=== PATIENT | male | born 1965 | race Caucasian/White ===

== ENCOUNTER 2016-11-05 13:28 | Emergency (ER) | payer OTHER ==
[~2016-11-05] VITALS: Ht 182.9 cm; Wt 95.5 kg
[~2016-11-05 13:28] MED LIST: HYDR-3533 PO
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
[2016-11-05 13:49] VITALS: BP 137/101; RESP 18; TEMP 98.4
[2016-11-05 13:52] VITALS: BP 137/101; PULSE 94; RESP 18; TEMP 98.4; O2SAT 99
--- NOTE | 2016-11-05 16:03 | RADRPT ---
EXAM DATE/TIME: 11/05/2016 15:31 [facility] COMPARISON: No previous studies available for comparison. INDICATIONS : Evaluate for altered mental status. RADIATION DOSE: 56.38 CTDIvol (mGy) MEDICAL HISTORY : None SURGICAL HISTORY : None. ENCOUNTER: Initial ACUITY: 1 day PAIN SCALE: 3/10 LOCATION: Bilateral cranial TECHNIQUE: Multiple contiguous axial images were obtained of the head. Using automated exposure control and adj ustment of the mA and/or kV according to patient size, radiation dose was kept as low as reasonably a chievable to obtain optimal diagnostic quality images. FINDINGS: CEREBRUM: The ventricles are normal for age. No evidence of midline shift, mass lesion, hemorrhage or acute in farction. No extra-axial fluid collections are seen. POSTERIOR FOSSA: The cerebellum and brainstem are intact. The 4th ventricle is midline. The cerebellopontine angle i s unremarkable. EXTRACRANIAL: The visualized portion of the orbits is intact. SKULL: The calvaria is intact. No evidence of skull fracture. CONCLUSION: No acute disease. Jose Linares MD FACR on November 05, 2016 at 15:54 Board Certified Radiologist. This report was verified electronically.
== END 2016-11-05 16:38 | disposition short-term general hospital (02) ==
LOC: NEPC 13:28
DX: S01.81XA Laceration without foreign body of other part of head, initial encounter (principal); F17.200 Nicotine dependence, unspecified, uncomplicated; Y08.09XA Assault by strike by other specified type of sport equipment, initial encounter
CPT/HCPCS: 70450

== ENCOUNTER 2017-01-08 20:41 | Emergency (ER) | payer SELFPAY ==
[~2017-01-08] VITALS: Ht 188 cm; Wt 85.0 kg
[2017-01-08] MEDS ORDERED: SODIUM CHLOR 0.9% 1000 ML INJ 1,000 ML IV ONE (20:49)
[2017-01-08 20:50] VITALS: BP 138/71; PULSE 111; RESP 26; TEMP 98.3; O2SAT 94
[2017-01-08 20:53] VITALS: RESP 24
[2017-01-08] MEDS ORDERED: SODIUM CHLORIDE 0.9% FLUSH 10 ML FLUSH IVF PRN (21:00)
--- NOTE | 2017-01-08 21:18 | PD ---
HPI Chief Complaint: OD/ Ingestion Time Seen by Provider: 20:49 Travel History International Travel<30 days: No Contact w/Intl Traveler<30days: No Traveled to known affect area: No History of Present Illness HPI 51-year-old male arrives to the ER by EMS. He was found to GCS of 3. Narcan was given a GCS increased to 15. Blood sugar on scene was 210. The patient reports IV drug abuse tonight, opioids. He states he today relapsed after a long period of remission. At the time of the initial ER evaluation agent had no specific medical complaint. Location generalized/neuropsychiatric. He denies suicidal/homicidal ideation. PFSH Past Medical History ADHD: Yes Bipolar Disorder: Yes Diminished Hearing: No Implanted Vascular Access Dvce: No Immunizations Current: No Sleep Apnea: Yes Tetanus Vaccination: < 5 Years Influenza Vaccination: No Past Surgical History Neurologic Surgery: No Other Surgery: Yes (PILONIDAL CYST ) Social History Alcohol Use: No Tobacco Use: Yes (pack a day ) Substance Use: Yes (daily ) Allergies-Medications (Allergen,Severity, Reaction): Coded Allergies: No Known Allergies (Verified , 01/08/17) Reported Meds & Prescriptions Reported Meds & Active Scripts Active Active Prescriptions or Reported Medications Unobtainable Review of Systems ROS Limitations: Clinical Condition, Intoxication Physical Exam Narrative GENERAL: 51-year-old male well-nourished well-developed GCS 15 SKIN: Warm and dry. HEAD: Atraumatic. Normocephalic. EYES: Pupils equal and round. No scleral icterus. No injection or drainage. ENT: No nasal bleeding or discharge. Mucous membranes pink and moist. NECK: Trachea midline. No JVD. CARDIOVASCULAR: Tachycardia. Regular rhythm. RESPIRATORY: No accessory muscle use. Clear to auscultation. Breath sounds equal bilaterally. GASTROINTESTINAL: Abdomen soft, non-tender, nondistended. Hepatic and splenic margins not palpable. MUSCULOSKELETAL: Extremities without clubbing, cyanosis, or edema. No obvious deformities. NEUROLOGICAL: Awake and alert. No obvious cranial nerve deficits. Motor grossly within normal limits. Five out of 5 muscle strength in the arms and legs. Normal speech. PSYCHIATRIC: Current IV drug abuse. Data Data Last Documented VS Vital Signs Date Time Temp Pulse Resp B/P Pulse Ox O2 Delivery O2 Flow Rate FiO2 01/08/17 21:49 96 16 101/56 98 Nasal Cannula 3 01/08/17 20:50 98.3 Vital signs reviewed Orders Complete Blood Count With Diff (01/08/17 20:49) Comprehensive Metabolic Panel (01/08/17 20:49) Iv Access Insert/Monitor (01/08/17 20:49) Ecg Monitoring (01/08/17 20:49) Oximetry (01/08/17 20:49) Sodium Chloride 0.9% Flush (Ns Flush) (01/08/17 21:00) Sodium Chlor 0.9% 1000 Ml Inj (Ns 1000 M (01/08/17 20:49) Drug Screen, Random Urine (01/08/17 20:49) Alcohol (Ethanol) (01/08/17 20:49) Tylenol (Acetaminophen) (01/08/17 20:49) Naloxone Inj (Narcan Inj) (01/08/17 22:15) Labs Laboratory Tests Test 01/08/17 21:05 White Blood Count 11.9 TH/MM3 Red Blood Count 4.17 MIL/MM3 Hemoglobin 11.7 GM/DL Hematocrit 34.9 % Mean Corpuscular Volume 83.8 FL Mean Corpuscular Hemoglobin 28.1 PG Mean Corpuscular Hemoglobin 33.5 % Concent Red Cell Distribution Width 14.7 % Platelet Count 219 TH/MM3 Mean Platelet Volume 8.6 FL Neutrophils (%) (Auto) 78.0 % Lymphocytes (%) (Auto) 14.1 % Monocytes (%) (Auto) 6.1 % Eosinophils (%) (Auto) 1.2 % Basophils (%) (Auto) 0.6 % Neutrophils # (Auto) 9.3 TH/MM3 Lymphocytes # (Auto) 1.7 TH/MM3 Monocytes # (Auto) 0.7 TH/MM3 Eosinophils # (Auto) 0.1 TH/MM3 Basophils # (Auto) 0.1 TH/MM3 CBC Comment DIFF FINAL Differential Comment Sodium Level 134 MEQ/L Potassium Level 3.4 MEQ/L Chloride Level 100 MEQ/L Carbon Dioxide Level 26.4 MEQ/L Anion Gap 8 MEQ/L Blood Urea Nitrogen 10 MG/DL Creatinine 0.90 MG/DL Estimat Glomerular Filtration 89 ML/MIN Rate Random Glucose 163 MG/DL Calcium Level 8.4 MG/DL Total Bilirubin 0.4 MG/DL Aspartate Amino Transf 23 U/L (AST/SGOT) Alanine Aminotransferase 19 U/L (ALT/SGPT) Alkaline Phosphatase 64 U/L Total Protein 6.9 GM/DL Albumin 3.2 GM/DL Urine Opiates Screen POS Acetaminophen Level LESS THAN 2.0 MCG/ML Urine Barbiturates Screen NEG Urine Amphetamines Screen POS Urine Benzodiazepines Screen NEG Urine Cocaine Screen POS Urine Cannabinoids Screen POS Ethyl Alcohol Level LESS THAN 3 MG/DL MDM Medical Decision Making Medical Screen Exam Complete: Yes Emergency Medical Condition: Yes Differential Diagnosis Accidental overdose, opiate overdose, benzodiazepine overdose, cocaine abuse, possible sepsis abuse, electrolyte imbalance, renal failure with sepsis Narrative Course CBC & BMP Diagram 01/08/17 21:05 Drug screen: Positive for opiates and amphetamines cocaine and cannabinoids LFTs normal Patient was ambulated at 10:20 PM and was somewhat unsteady on his feet and seemed as though he might actually falling asleep while walking. We will continue to monitor the patient and attempted a second time ambulated him in 60 minutes. 2.0 mg IV Narcan ordered at 10:20 PM. At 12:25 AM the patient ambulated around the pod with a steady gait. He is now ready for discharge. Diagnosis Primary Impression: Polysubstance overdose Qualified Code: T50.901A - Polysubstance overdose, accidental or unintentional , initial encounter Referrals: [facility] days Additional Instructions: You have a choice when it comes to health care, and we are glad that you chose [facility]. Hopefully, we have met your expectations on today's visit. You are welcome to return to [facility] at any time, as we are committed to meeting the health care needs of our community. Med/Other Pt SpecificInfo: No Change to Meds Scripts Unable to Obtain Active Prescriptions or Reported Meds Disposition: 01 DISCHARGE HOME Condition: Obinna Joel MD Jan 08, 2017 21:18
[2017-01-08 21:24] LABS: AUTOMATED NEUTROPHIL # 9.3 TH/MM3 (1.8-7.7); BASOPHIL # 0.1 TH/MM3 (0-0.2); BASOPHIL % 0.6 % (0.0-2.0); EOSINOPHIL # 0.1 TH/MM3 (0-0.4); EOSINOPHIL % 1.2 % (0.0-4.0); HEMATOCRIT 34.9 % (39.0-51.0); HEMO FLAGS DIFF FINAL; LYMPH % 14.1 % (9.0-44.0); LYMPHOCYTE # 1.7 TH/MM3 (1.0-4.8); MEAN CELL VOLUME 83.8 FL (80.0-100.0); MEAN CORPUSCULAR HEMOGLOBIN 28.1 PG (27.0-34.0); MEAN CORPUSCULAR HGB CONC 33.5 % (32.0-36.0); MONO % 6.1 % (0.0-8.0); PLATELET COUNT 219 TH/MM3 (150-450); RED BLOOD COUNT 4.17 MIL/MM3 (4.50-5.90); RED CELL DISTRIBUTION WIDTH 14.7 % (11.6-17.2); WHITE BLOOD COUNT 11.9 TH/MM3 (4.0-11.0)
[2017-01-08 21:46] LABS: AMPHETAMINE, URINE POS (NEG); BARBITURATES, URINE NEG (NEG); COCAINE, URINE POS (NEG)
[2017-01-08 21:49] VITALS: BP 101/56; PULSE 96; RESP 16; O2SAT 98
[2017-01-08 21:53] LABS: ANION GAP 8 MEQ/L (5-15); BICARBONATE 26.4 MEQ/L (21.0-32.0); BLOOD UREA NITROGEN 10 MG/DL (7-18); CHLORIDE 100 MEQ/L (98-107); GLOMERULAR FILTRATION RATE 89 ML/MIN (>89); POTASSIUM 3.4 MEQ/L (3.5-5.1); SODIUM (NA) 134 MEQ/L (136-145)
[2017-01-08 21:54] LABS: AST (GOT) 23 U/L (15-37)
[2017-01-08 21:57] LABS: ALKALINE PHOSPHATASE 64 U/L (45-117); ALT (GPT) 19 U/L (12-78); TOTAL BILIRUBIN ADULT 0.4 MG/DL (0.2-1.0)
[2017-01-08 22:00] LABS: ACETAMINOPHEN LESS THAN 2.0 MCG/ML (10.0-30.0)
[2017-01-08] MEDS ORDERED: NALOXONE HCL 2 MG/2 ML VIAL IV PUSH ONE (22:15)
== END 2017-01-09 04:09 | disposition home or self-care (01) ==
LOC: NEPC 20:41
DX: T40.1X1A Poisoning by heroin, accidental (unintentional), initial encounter (principal); R00.0 Tachycardia, unspecified; F90.9 Attention-deficit hyperactivity disorder, unspecified type; F31.9 Bipolar disorder, unspecified; F17.200 Nicotine dependence, unspecified, uncomplicated
CPT/HCPCS: 80053; 80307; 85025; 96374; 99284; J2310; J7030

== ENCOUNTER 2017-01-31 17:45 | Inpatient (IN) | payer SELFPAY ==
[~2017-01-31] VITALS: Ht 190.5 cm; Wt 85.0 kg
[2017-01-31] MEDS ORDERED: IOHEXOL 350 MG/ML 10 ML VIAL (for RAD DIAG) IVCONTRAST ONE (17:46)
[2017-01-31 17:50] VITALS: BP 130/85; PULSE 95; RESP 16; TEMP 98.4; O2SAT 98
[2017-01-31] MEDS ORDERED: SODIUM CHLOR 0.9% 1000 ML INJ 1,000 ML IV SCH (19:22)
--- NOTE | 2017-01-31 19:26 | PD ---
HPI Chief Complaint: ENT Complaint Time Seen by Provider: 19:15 Travel History International Travel<30 days: No Contact w/Intl Traveler<30days: No Traveled to known affect area: No History of Present Illness HPI This Is a 52-year-old male who presents via EMS for evaluation of sore throat. The patient is a poor historian, he reports that he has not slept in the past few days secondary to methamphetamine abuse. His chief complaint today is sore throat which started yesterday morning. It hurts to swallow. He has had difficulty swallowing secondary to pain. Denies fevers, chills, cough or congestion, chest pain or shortness of breath, abdominal pain, nausea or vomiting. He has no other complaints. PFSH Past Medical History ADHD: Yes Asthma: No Blood Disorders: No Bipolar Disorder: Yes Cancer: No Cardiovascular Problems: No COPD: No Diminished Hearing: No Endocrine: No Genitourinary: No Immune Disorder: No Implanted Vascular Access Dvce: No Musculoskeletal: No Neurologic: No Psychiatric: No Reproductive: No Respiratory: No Immunizations Current: No Sleep Apnea: Yes Past Surgical History Abdominal Surgery: No Cardiac Surgery: No Ear Surgery: No Endocrine Surgery: No Eye Surgery: No Genitourinary Surgery: No Gynecologic Surgery: No Neurologic Surgery: No Oral Surgery: No Thoracic Surgery: No Other Surgery: Yes (PILONIDAL CYST ) Social History Alcohol Use: No Tobacco Use: Yes (pack a day ) Substance Use: Yes (daily ) Allergies-Medications (Allergen,Severity, Reaction): Coded Allergies: No Known Allergies (Verified , 02/01/17) Reported Meds & Prescriptions Reported Meds & Active Scripts Active Active Prescriptions or Reported Medications Unobtainable Review of Systems Except as stated in HPI: all other systems reviewed are Neg Physical Exam Narrative GENERAL: This is a disheveled appearing male who was sleeping on initial examination but is easily arousable by voice. His voice is not hoarse or muffled. No stridor or drooling. SKIN: Warm and dry. HEAD: Atraumatic. Normocephalic. EYES: Pupils equal and round. No scleral icterus. No injection or drainage. ENT: No nasal bleeding or discharge. Mucous membranes pink and moist. There is left-sided oral pharyngeal edema, erythema with uvular deviation. No exudate. NECK: Trachea midline. No JVD. There is no lymphadenopathy. CARDIOVASCULAR: Regular rate and rhythm. No murmur appreciated. RESPIRATORY: No accessory muscle use. Clear to auscultation. Breath sounds equal bilaterally. GASTROINTESTINAL: Abdomen soft, non-tender, nondistended. Hepatic and splenic margins not palpable. MUSCULOSKELETAL: No obvious deformities. NEUROLOGICAL: Awake and alert. No obvious cranial nerve deficits. Motor grossly within normal limits. Normal speech. Data Data Last Documented VS Vital Signs Date Time Temp Pulse Resp B/P (MAP) Pulse Ox O2 Delivery O2 Flow Rate FiO2 01/31/17 17:50 98.4 95 16 130/85 (100) 98 Orders Orders Complete Blood Count With Diff (01/31/17 19:22) Basic Metabolic Panel (Bmp) (01/31/17 19:22) Act Partial Throm Time (Ptt) (01/31/17 19:22) Prothrombin Time / Inr (Pt) (01/31/17 19:22) Group A Rapid Strep Screen (01/31/17 19:22) Lactic Acid Sepsis Protocol (01/31/17 19:22) Blood Culture (01/31/17 19:22) Iv Access Insert/Monitor (01/31/17 19:22) Ampicillin-Sulbactam Inj (Unasyn Inj) (01/31/17 19:30) Dexamethasone Inj (Decadron Inj) (01/31/17 19:30) Sodium Chlor 0.9% 1000 Ml Inj (Ns 1000 M (01/31/17 19:22) Ct Soft Tiss Neck W Iv Cont (01/31/17 ) Strep Culture (Group A) (01/31/17 19:40) Iohexol 350 Inj (Omnipaque 350 Inj) (01/31/17 17:46) Admit Order (Ed Use Only) (01/31/17 22:46) Labs Laboratory Tests Test 01/31/17 19:40 White Blood Count 14.1 TH/MM3 Red Blood Count 4.67 MIL/MM3 Hemoglobin 12.6 GM/DL Hematocrit 38.7 % Mean Corpuscular Volume 83.0 FL Mean Corpuscular Hemoglobin 27.0 PG Mean Corpuscular Hemoglobin Concent 32.6 % Red Cell Distribution Width 14.9 % Platelet Count 314 TH/MM3 Mean Platelet Volume 8.4 FL Neutrophils (%) (Auto) 77.8 % Lymphocytes (%) (Auto) 13.0 % Monocytes (%) (Auto) 7.5 % Eosinophils (%) (Auto) 1.2 % Basophils (%) (Auto) 0.5 % Neutrophils # (Auto) 11.0 TH/MM3 Lymphocytes # (Auto) 1.8 TH/MM3 Monocytes # (Auto) 1.1 TH/MM3 Eosinophils # (Auto) 0.2 TH/MM3 Basophils # (Auto) 0.1 TH/MM3 CBC Comment DIFF FINAL Differential Comment Prothrombin Time 11.2 SEC Prothromb Time International Ratio 1.0 RATIO Activated Partial Thromboplast Time 29.9 SEC Blood Urea Nitrogen 8 MG/DL Creatinine 0.76 MG/DL Random Glucose 95 MG/DL Calcium Level 8.9 MG/DL Sodium Level 135 MEQ/L Potassium Level 4.1 MEQ/L Chloride Level 100 MEQ/L Carbon Dioxide Level 27.1 MEQ/L Anion Gap 8 MEQ/L Estimat Glomerular Filtration Rate 108 ML/MIN Lactic Acid Level 0.9 mmol/L MDM Medical Decision Making Medical Screen Exam Complete: Yes Emergency Medical Condition: Yes Medical Record Reviewed: Yes Differential Diagnosis Peritonsillar abscess, cellulitis, pharyngitis, malignancy Narrative Course 52-year-old male presents with a history of one day of sore throat. On examination he has left-sided oral pharyngeal erythema and edema with some uvular deviation. He is afebrile. He is unfortunately very poor historian. Plan is for basic lab work, blood cultures, CT soft tissue neck. He was given IV fluids, Unasyn and Decadron. CT soft tissue neck has been reviewed. CONCLUSION: 1. Large mass centered on the left tonsillar fossa region. This extends into the left nasopharynx and into the left hypopharynx region. It nearly completely obliterates the oropharynx. It extends towards the right tonsillar fossa. Involvement in the right tonsillar fossa may also be present. This mass is associated with bilateral adenopathy. This either represents extensive inflammatory change/infection versus neoplasm. 2. 2.1 cm mass at the superficial lobe of the right parotic gland inferiorly representing either adenopathy or potentially a primary parotid mass such pleomorphic adenoma. Upon reexamination the patient does feel mildly improved. At this point time the plan would be to admit the patient for IV antibiotics, ENT consultation. Discussed with Dr. Beaulieu who is agreeable. Diagnosis Primary Impression: Oropharyngeal mass Admitting Information Admitting Physician Requests: Admit Scripts Unable to Obtain Active Prescriptions or Reported Meds Zac Medina Jan 31, 2017 19:26
[2017-01-31] MEDS ORDERED: DEXAMETHASONE SOD PHOS 20 MG/5 ML VIAL IV PUSH ONE (19:30)
[2017-01-31] MEDS ORDERED: AMPICILLIN-SULBACTAM INJ 3 GM in SODIUM CHLORIDE 0.9% INJ 100 ML IV ONE (19:30)
[2017-01-31 19:59] LABS: BASOPHIL # 0.1 TH/MM3 (0-0.2); BASOPHIL % 0.5 % (0.0-2.0); EOSINOPHIL # 0.2 TH/MM3 (0-0.4); EOSINOPHIL % 1.2 % (0.0-4.0); HEMATOCRIT 38.7 % (39.0-51.0); HEMO FLAGS DIFF FINAL; LYMPHOCYTE # 1.8 TH/MM3 (1.0-4.8); MEAN CORPUSCULAR HGB CONC 32.6 % (32.0-36.0); MONO % 7.5 % (0.0-8.0); NEUT % 77.8 % (16.0-70.0); PLATELET COUNT 314 TH/MM3 (150-450); RED BLOOD COUNT 4.67 MIL/MM3 (4.50-5.90); RED CELL DISTRIBUTION WIDTH 14.9 % (11.6-17.2); WHITE BLOOD COUNT 14.1 TH/MM3 (4.0-11.0)
[2017-01-31 20:17] LABS: APTT (PATIENT) 29.9 SEC (24.3-30.1); PROTHROMBIN TIME - PATIENT 11.2 SEC (9.8-11.6)
[2017-01-31 20:19] LABS: BICARBONATE 27.1 MEQ/L (21.0-32.0); POTASSIUM 4.1 MEQ/L (3.5-5.1)
--- NOTE | 2017-01-31 22:27 | RADRPT ---
EXAM DATE/TIME: 01/31/2017 20:41 [facility] COMPARISON: No previous studies available for comparison. INDICATIONS : Throat pain and swelling today. IV CONTRAST: 72 cc Omnipaque 350 (iohexol) IV RADIATION DOSE: 14.40 CTDIvol (mGy) MEDICAL HISTORY : None SURGICAL HISTORY : None. ENCOUNTER: Initial ACUITY: 1 day PAIN SCALE: 9/10 LOCATION: Neck TECHNIQUE: Volumetric scanning of the neck was performed. Using automated exposure control and a djustment of the mA and/or kV according to patient size, radiation dose was kept as low as reasonably achievable to obtain optimal diagnostic quality images. DICOM format image data is available elect ronically for review and comparison. FINDINGS: There is a large mass seen at the left tonsillar fossa region. This extends from the na sopharynx region down to the colonic level on the left. This measures at least 4 cm in diameter and e xtends over a 10 cm at the length at the neck. It does compromise the oropharynx. This mass either a buts the right tonsillar fossa or potentially there is a component involving the right tonsillar angel a. The mass extends into the left vallecula and the soft tissues anterior to the left vallecula and the floor of the mouth region. There is extensive adenopathy seen bilaterally being much more promin ent on the left. The adenopathy seen in the anterior triangle and digastric regions. The largest ly mph node on the left measures 1.8 cm in greatest dimension. There is a 2.1 cm mass seen at the inferi or aspect of the superficial lobe of the right parotid gland. This could represent a prominent lymph node although other type masses including a primary parotid mass such as pleomorphic adenoma could pereyra ve a similar appearance. There is mild mucosal disease seen at the maxillary sinuses bilaterally being worse on the left. The re is some minimal mucosal disease at an anterior left ethmoid air cell. The orbits appear grossly i ntact. Thyroid gland is unremarkable. The lung apices are clear. The bony structures are grossly i ntact. CONCLUSION: 1. Large mass centered on the left tonsillar fossa region. This extends into the left nasopharynx and into the left hypopharynx region. It nearly completely obliterates the oropharynx. It extends towa rds the right tonsillar fossa. Involvement in the right tonsillar fossa may also be present. This ma ss is associated with bilateral adenopathy. This either represents extensive inflammatory change/inf ection versus neoplasm. 2. 2.1 cm mass at the superficial lobe of the right parotic gland inferiorly representing either mitchell opathy or potentially a primary parotid mass such pleomorphic adenoma. Pito Acosta MD on January 31, 2017 at 22:00 Board Certified Radiologist. This report was verified electronically.
[2017-01-31] MEDS ORDERED: SODIUM CHLORIDE 0.9% FLUSH 10 ML FLUSH IV FLUSH PRN (22:45)
[2017-01-31] MEDS ORDERED: NALOXONE HCL 0.4 MG/ML AMP IV PRN (22:45)
[2017-02-01] VITALS (9 sets, daily range): BP systolic 105–136; BP diastolic 59–83; PULSE 77–88; RESP 18–22; TEMP 97.1–99.1; O2SAT 96–99
[2017-02-01] MEDS: DEXAMETHASONE SOD PHOS 4 MG/ML VIAL IV PUSH SCH ×4 (01:04→17:57)
[2017-02-01] MEDS: AMPICILLIN-SULBACTAM INJ 3 GM in SODIUM CHLORIDE 0.9% INJ 100 ML IV SCH ×4 (01:04→21:25)
--- NOTE | 2017-02-01 03:37 | HHI.HP ---
[facility] No Primary Care Physician Admission Diagnosis left oropharyngeal mass Diagnoses: Chief Complaint: difficulty swallowing and breathing Travel History International Travel<30 Days: No Contact w/Intl Traveler <30 Da: No Traveled to Known Affected Are: No History of Present Illness Written by DESHAWN Stuart acting as scribe for [Britntee] on 02/01/17 at 03: 30. 52 y/o male with a history of IVDA, last use 1 day ago presented to the ED with complaints of throat swelling, and difficultly breathing for a few days. He states for the last few days he has been unable to swallow and it is hard to breath. He denies no fevers, chills, chest pain, nausea or vomiting. He states this happened 2 years ago and he was treated with antibiotics. He does also states he has been dizzy for a few days but unsure if it because of his drug use. He does have multiple skin ulcers on arms and legs from injecting drugs, he denies any MRSA history. Review of Systems Except as stated in HPI: all other systems reviewed are Neg Past Family Social History Past Medical History Patient denies any medical history Past Surgical History Cyst on tailbone Reported Medications Reported Meds & Active Scripts Active Active Prescriptions or Reported Medications Unobtainable Allergies: Coded Allergies: No Known Allergies (Verified , 02/01/17) Active Ordered Medications Current Medications Medications (Trade) Dose Ordered Sig/Mary Route Start Time Stop Time Status Last Admin (NS Flush) 2 ml UNSCH PRN IV FLUSH 01/31/17 22:45 (NS Flush) 2 ml BID IV FLUSH 02/01/17 09:00 (Narcan Inj) 0.4 mg UNSCH PRN IV 01/31/17 22:45 (Decadron Inj) 4 mg Q6HR IV PUSH 02/01/17 00:00 02/01/17 01:04 (Protonix) 40 mg DAILY PO 02/01/17 09:00 Ampicillin Sodium/ Sulbactam Sodium 3 gm/Sodium Chloride 100 ml @ 200 mls/hr Q6H IV 02/01/17 02:00 02/01/17 01:04 Family History Family history of cancer Social History Tobacco use: 1 PPD Alcohol use: Denies Illicit drug use: IV heroin and meth Physical Exam Vital Signs Vital Signs Date Time Temp Pulse Resp B/P (MAP) Pulse Ox O2 Delivery O2 Flow Rate FiO2 02/01/17 02:55 99.1 79 18 136/83 (100) 98 Room Air 01/31/17 17:50 98.4 95 16 130/85 (100) 98 Physical Exam GENERAL: This is a well-nourished, well-developed patient, in no apparent distress. SKIN: No rashes, ecchymoses or lesions. Cool and dry. HEAD: Atraumatic. Normocephalic. EYES: Pupils equal round and reactive. Extraocular motions intact. No scleral icterus. No injection or drainage. ENT: Nose without bleeding, purulent drainage or septal hematoma. Roof of mouth is swollen. Airway patent. Missing and chipped teeth. NECK: Trachea midline. Right lymphadenopathy. CARDIOVASCULAR: Regular rate and rhythm without murmurs, gallops, or rubs. RESPIRATORY: Clear to auscultation. Breath sounds equal bilaterally. No wheezes , rales, or rhonchi. GASTROINTESTINAL: Abdomen soft, non-tender, nondistended. MUSCULOSKELETAL: Extremities without clubbing, cyanosis, or edema. No joint tenderness, effusion, or edema noted. No calf tenderness. NEUROLOGICAL: Awake and alert. Motor and sensory grossly within normal limits. Normal speech. Laboratory Laboratory Tests Test 01/31/17 19:40 White Blood Count 14.1 Red Blood Count 4.67 Hemoglobin 12.6 Hematocrit 38.7 Mean Corpuscular Volume 83.0 Mean Corpuscular Hemoglobin 27.0 Mean Corpuscular Hemoglobin Concent 32.6 Red Cell Distribution Width 14.9 Platelet Count 314 Mean Platelet Volume 8.4 Neutrophils (%) (Auto) 77.8 Lymphocytes (%) (Auto) 13.0 Monocytes (%) (Auto) 7.5 Eosinophils (%) (Auto) 1.2 Basophils (%) (Auto) 0.5 Neutrophils # (Auto) 11.0 Lymphocytes # (Auto) 1.8 Monocytes # (Auto) 1.1 Eosinophils # (Auto) 0.2 Basophils # (Auto) 0.1 CBC Comment DIFF FINAL Differential Comment Prothrombin Time 11.2 Prothromb Time International Ratio 1.0 Activated Partial Thromboplast Time 29.9 Blood Urea Nitrogen 8 Creatinine 0.76 Random Glucose 95 Calcium Level 8.9 Sodium Level 135 Potassium Level 4.1 Chloride Level 100 Carbon Dioxide Level 27.1 Anion Gap 8 Estimat Glomerular Filtration Rate 108 Lactic Acid Level 0.9 Date/Time Source Procedure Growth Status 01/31/17 19:40 Blood Peripheral Aerobic Blood Culture Pending Received 01/31/17 19:40 Blood Peripheral Anaerobic Blood Culture Pending Received 01/31/17 19:40 Throat Group A Streptococcus Screen Pending Received Result Diagram: 01/31/17193901/31/171939 Imaging Last Impressions Neck CT 01/31/17 0000 Signed Impressions: Service Date/Time: Tuesday, January 31, 2017 20:41 - CONCLUSION: 1. Large mass centered on the left tonsillar fossa region. This extends into the left nasopharynx and into the left hypopharynx region. It nearly completely obliterates the oropharynx. It extends towards the right tonsillar fossa. Involvement in the right tonsillar fossa may also be present. This mass is associated with bilateral adenopathy. This either represents extensive inflammatory change/infection versus neoplasm. 2. 2.1 cm mass at the superficial lobe of the right parotic gland inferiorly representing either adenopathy or potentially a primary parotid mass such pleomorphic adenoma. MD Bobby William VTE Risk Assessment Caprini VTE Risk Assessment: No/Low Risk (score <= 1) Caprini Risk Assessment Model Point Value = 1 Point Value = 2 Point Value = 3 Point Value = 5 Age 41-60 Minor surgery BMI > 25 kg/m2 Swollen legs Varicose veins or History of unexplained or recurrent spontaneous Oral contraceptives or hormone replacement Sepsis (< 1 month) Serious lung disease, including pneumonia (< 1 month) Abnormal pulmonary function Acute myocardial infarction Congestive heart failure (< 1 month) History of inflammatory bowel disease Medical patient at bed rest Age 61-74 Arthroscopic surgery Major open surgery (> 45 min) Laparoscopic surgery (> 45 min) Malignancy Confined to bed (> 72 hours) Immobilizing plaster cast Central venous access Age >= 75 History of VTE Family history of VTE Factor V Leiden Prothrombin [id number] Lupus anticoagulant Anticardiolipin antibodies Elevated serum homocysteine Heparin-induced thrombocytopenia Other congenital or acquired thrombophilia Stroke (< 1 month) Elective arthroplasty Hip, pelvis, or leg fracture Acute spinal cord injury (< 1 month) Prophylaxis Regimen Total Risk Factor Score Risk Level Prophylaxis Regimen 0-1 Low Early ambulation 2 Moderate Order ONE of the following: *Sequential Compression Device (SCD) *Heparin 5000 units SQ BID 3-4 Higher Order ONE of the following medications: *Heparin 5000 units SQ TID *Enoxaparin/Lovenox 40 mg SQ daily (WT < 150 kg, CrCl > 30 mL/min) *Enoxaparin/Lovenox 30 mg SQ daily (WT < 150 kg, CrCl > 10-29 mL/min) *Enoxaparin/Lovenox 30 mg SQ BID (WT < 150 kg, CrCl > 30 mL/min) AND/OR *Sequential Compression Device (SCD) 5 or more Highest Order ONE of the following medications: *Heparin 5000 units SQ TID (Preferred with Epidurals) *Enoxaparin/Lovenox 40 mg SQ daily (WT < 150 kg, CrCl > 30 mL/min) *Enoxaparin/Lovenox 30 mg SQ daily (WT < 150 kg, CrCl > 10-29 mL/min) *Enoxaparin/Lovenox 30 mg SQ BID (WT < 150 kg, CrCl > 30 mL/min) AND *Sequential Compression Device (SCD) Assessment and Plan Problem List: (1) Oropharyngeal mass ICD Code: R22.1 - Localized swelling, mass and lump, neck Status: Acute (2) Polysubstance overdose ICD Code: T50.901A - Poisoning by unspecified drugs, medicaments and biological substances, accidental (unintentional), initial encounter Status: Acute (3) Leukocytosis ICD Code: D72.829 - Elevated white blood cell count, unspecified Assessment and Plan 52 y/o male with a history of IVDA, last use 1 day ago presented to the ED with complaints of throat swelling, and difficultly breathing for a few days. Oropharyngeal mass Neck CT reviewed and shows Large mass centered on the left tonsillar fossa region. This extends into the left nasopharynx and into the left hypopharynx region. It nearly completely obliterates the oropharynx. It extends towards the right tonsillar fossa. Involvement in the right tonsillar fossa may also be present. This mass is associated with bilateral adenopathy. This either represents extensive inflammatory change/infection versus neoplasm. 2.1 cm mass at the superficial lobe of the right parotic gland inferiorly representing either adenopathy or potentially a primary parotid mass such pleomorphic adenoma. -Consult ENT for recommendations -IV Decadron -Pain management with IV Dilaudid -Unasyn IV Leukocytosis, likely from tonsillar mass, WBC 14.1 -Cont Antibiotics as above -CBC in AM Polysubstance abuse, chronic -Encouraged to quit DVT prophylaxis: SCDs This note was transcribed by emaibhenri [Janel Quiñones]. I, Dr. Berny Beaulieu personally performed the history, physical exam, and medical decision making; and confirmed the accuracy of the information in the transcribed note. Authenticated by Dr. Berny Beaulieu on 02/01/17 at 03:30. Discussed Condition With Patient and ED physician Physician Certification 2 Midnight Certification Type: Admission for Inpatient Services Order for Inpatient Services The services are ordered in accordance with Medicare regulations or non- Medicare payer requirements, as applicable. In the case of services not specified as inpatient-only, they are appropriately provided as inpatient services in accordance with the 2-midnight benchmark. Estimated LOS (days): 3 days is the estimated time the patient will need to remain in the hospital, assuming treatment plan goals are met and no additional complications. Post-Hospital Plan: Home Janel Quiñones Feb 01, 2017 03:37 Berny Beaulieu MD Feb 01, 2017 07:53
[2017-02-01] MEDS: SODIUM CHLORIDE 0.9% FLUSH 10 ML FLUSH IV FLUSH SCH ×2 (09:21→21:24)
[2017-02-01] MEDS: PANTOPRAZOLE SOD 40 MG DELAYED RELEASE TAB PO SCH (09:21)
[2017-02-01] MEDS: HYDROmorphone HCL PF 1 MG/ML VIAL IV PUSH PRN ×3 (09:35→17:58)
[2017-02-01] MEDS: REMOVE OLD PATCH T-DERMAL SCH (12:45)
--- NOTE | 2017-02-01 12:46 | HHI.PR ---
Subjective Remarks Follow up for oropharyngeal mass. The patient reports significant improvement of pain and swelling overnight, however symptoms still persist, pain 7/10. He has been able to eat and swallow solid foods. Denies any difficulty breathing or shortness of breath. He is now able to speak however still painful if he tries to talk loud. Denies fevers or chills. He explains he noticed bilateral cervical lymphadenopathy over a month ago, however the throat swelling he only noticed yesterday morning. He does continue to smoke cigarettes. He has no other medical complaints at this time. Objective Vitals Vital Signs Date Time Temp Pulse Resp B/P (MAP) Pulse Ox O2 Delivery O2 Flow Rate FiO2 02/01/17 11:52 97.1 84 18 109/64 (79) 97 02/01/17 10:05 20 02/01/17 07:40 97.9 82 22 133/64 (87) 99 02/01/17 05:12 98.6 82 18 121/72 (88) 99 02/01/17 05:11 83 02/01/17 04:20 02/01/17 02:55 99.1 79 18 136/83 (100) 98 Room Air 01/31/17 17:50 98.4 95 16 130/85 (100) 98 I/O 01/31/17 01/31/17 01/31/17 02/01/17 02/01/17 02/01/17 07:00 15:00 23:00 07:00 15:00 23:00 Intake Total 1100 ml 0 ml 100 ml Balance 1100 ml 0 ml 100 ml Intake Oral 0 ml IV Total 1100 ml 100 ml # Voids 1 Result Diagram: 01/31/17193901/31/171939 Imaging Last Impressions Neck CT 01/31/17 0000 Signed Impressions: Service Date/Time: Tuesday, January 31, 2017 20:41 - CONCLUSION: 1. Large mass centered on the left tonsillar fossa region. This extends into the left nasopharynx and into the left hypopharynx region. It nearly completely obliterates the oropharynx. It extends towards the right tonsillar fossa. Involvement in the right tonsillar fossa may also be present. This mass is associated with bilateral adenopathy. This either represents extensive inflammatory change/infection versus neoplasm. 2. 2.1 cm mass at the superficial lobe of the right parotic gland inferiorly representing either adenopathy or potentially a primary parotid mass such pleomorphic adenoma. Pito Acosta MD Objective Remarks GENERAL: Well-nourished, well-developed middle aged male patient in NAD. SKIN: Warm and dry. No rash. HEAD: Normocephalic. Atraumatic. EYES: Pupils equal and round. ENT: Mucous membranes pink and moist. Poor dentition. Oropharynx with significant diffuse edema almost completely enclosing the oropharynx, worse on the left, with mild erythema. NECK: Supple. Diffuse lymphadenopathy throughout right preauricular, right anterior cervical, left anterior cervical, left submandibular. CARDIOVASCULAR: Regular rate and rhythm. S1, S2 noted. No murmur appreciated. RESPIRATORY: No accessory muscle use. Clear to auscultation. Breath sounds equal bilaterally. GASTROINTESTINAL: Abdomen soft, non-tender, nondistended. Normoactive bowel sounds x4. MUSCULOSKELETAL: No obvious deformities. Extremities without clubbing, cyanosis , or edema. NEUROLOGICAL: Awake and alert. No obvious cranial nerve deficits. Motor grossly within normal limits. Normal speech. PSYCHIATRIC: Appropriate mood and affect; insight and judgment normal. Medications and IVs Current Medications Medications (Trade) Dose Ordered Sig/Mary Route Start Time Stop Time Status Last Admin (NS Flush) 2 ml UNSCH PRN IV FLUSH 01/31/17 22:45 (NS Flush) 2 ml BID IV FLUSH 02/01/17 09:00 02/01/17 09:21 (Narcan Inj) 0.4 mg UNSCH PRN IV 01/31/17 22:45 (Decadron Inj) 4 mg Q6HR IV PUSH 02/01/17 00:00 02/01/17 11:40 (Protonix) 40 mg DAILY PO 02/01/17 09:00 02/01/17 09:21 Ampicillin Sodium/ Sulbactam Sodium 3 gm/Sodium Chloride 100 ml @ 200 mls/hr Q6H IV 02/01/17 02:00 02/01/17 09:21 (Dilaudid Pf Inj) 1 mg Q4H PRN IV PUSH 02/01/17 03:45 02/01/17 09:35 A/P Problem List: (1) Oropharyngeal mass ICD Code: R22.1 - Localized swelling, mass and lump, neck Status: Acute (2) Polysubstance overdose ICD Code: T50.901A - Poisoning by unspecified drugs, medicaments and biological substances, accidental (unintentional), initial encounter Status: Acute (3) Leukocytosis ICD Code: D72.829 - Elevated white blood cell count, unspecified Assessment and Plan 52 y/o male with a history of IVDA, last use 1 day ago presented to the ED with complaints of throat swelling, and difficultly breathing for a few days. Oropharyngeal mass: Neck CT images reviewed, shows Large mass centered on the left tonsillar fossa region; extends into the left nasopharynx and into the left hypopharynx region; nearly completely obliterates the oropharynx and extends towards the right tonsillar fossa; mass associated with bilateral adenopathy; either represents extensive inflammatory change/infection versus neoplasm. 2.1 cm mass at the superficial lobe of the right parotic gland inferiorly representing either adenopathy or potentially a primary parotid mass such pleomorphic adenoma. Strep screen negative. -Consult ENT for further recommendations -Continue IV Decadron 4mg q6h -Pain management with IV Dilaudid for now, can likely transition to liquid norco if swelling continued to improve -Antibiotics with IV Unasyn Leukocytosis, likely from tonsillar mass, WBC 14.1 -Cont Antibiotics as above, suspect leukocytosis to worsen with steroids IVDU/Polysubstance abuse: uses IV heroin and meth -Encouraged to quit Tobacco Use: chronic -counseled on cessation -nicotine patch DVT prophylaxis: SCDs Discharge Planning Discharge pending further clinical improvement and ENT evaluation. Possibly discharge in 2-3 days. Flora Moyer PA-C Feb 01, 2017 12:46 pm
[2017-02-01 12:57] LABS: AUTOMATED NEUTROPHIL # 11.5 TH/MM3 (1.8-7.7); HEMATOCRIT 36.7 % (39.0-51.0); HEMO FLAGS DIFF FINAL; LYMPH % 7.9 % (9.0-44.0); MEAN CELL VOLUME 82.5 FL (80.0-100.0); MEAN CORPUSCULAR HGB CONC 33.9 % (32.0-36.0); MONO % 3.4 % (0.0-8.0); NEUT % 88.7 % (16.0-70.0); PLATELET COUNT 283 TH/MM3 (150-450); RED BLOOD COUNT 4.45 MIL/MM3 (4.50-5.90); RED CELL DISTRIBUTION WIDTH 14.4 % (11.6-17.2); WHITE BLOOD COUNT 12.9 TH/MM3 (4.0-11.0)
[2017-02-01 13:08] LABS: BICARBONATE 26.3 MEQ/L (21.0-32.0); POTASSIUM 3.7 MEQ/L (3.5-5.1)
[2017-02-01] MEDS: NICOTINE 21 MG/24 HR PATCH T-DERMAL SCH (13:49)
[2017-02-02] VITALS (9 sets, daily range): BP systolic 101–129; BP diastolic 58–70; PULSE 73–87; RESP 18–20; TEMP 97.4–98.6; O2SAT 96–100
[2017-02-02] MEDS: DEXAMETHASONE SOD PHOS 4 MG/ML VIAL IV PUSH SCH ×4 (01:57→18:09)
[2017-02-02] MEDS: HYDROmorphone HCL PF 1 MG/ML VIAL IV PUSH PRN ×6 (02:04→21:25)
[2017-02-02] MEDS: AMPICILLIN-SULBACTAM INJ 3 GM in SODIUM CHLORIDE 0.9% INJ 100 ML IV SCH ×4 (02:09→20:47)
[2017-02-02] MEDS: SODIUM CHLORIDE 0.9% FLUSH 10 ML FLUSH IV FLUSH SCH ×2 (07:52→20:47)
[2017-02-02] MEDS: PANTOPRAZOLE SOD 40 MG DELAYED RELEASE TAB PO SCH (07:54)
[2017-02-02] MEDS: REMOVE OLD PATCH T-DERMAL SCH (07:54)
[2017-02-02] MEDS: NICOTINE 21 MG/24 HR PATCH T-DERMAL SCH (07:54)
--- NOTE | 2017-02-02 08:24 | MB ---
cc: UCHE OWEN MD DATE OF CONSULTATION: 02/01/2017 CHIEF COMPLAINT Oropharyngeal mass. HISTORY OF PRESENT ILLNESS A 52-year-old male with a history of significant IV drug use, mostly heroin, which complicated his presentation to the emergency room for a large oropharyngeal mass. He apparently reported to the emergency room two days ago with some throat swelling and a hard time breathing for a few days, stating it was hard to swallow and he was having a difficult time with his breathing. He is denying fevers or chills, chest pain, nausea or vomiting. He reports that he has had an off and on again, approximately two-year history, with a similar problem, but he thought it would go away and he would feel better and then it would come back. After he was seen in the emergency room he was admitted early this morning and started on IV antibiotics and steroids. He reports now after I am seeing him about 12 hours after he has been getting IV antibiotics he feels better, he is able to swallow, he is tolerating p.o. intake. His last use of IV drugs was just yesterday. PAST MEDICAL HISTORY He denies any past medical history. PAST SURGICAL HISTORY He does have a history of surgical intervention for a pilonidal cyst. MEDICATIONS He is not on any current active medications. SOCIAL HISTORY His social history is significant for tobacco use one pack per day. He denies alcohol use. He uses IV heroin and methamphetamine. PHYSICAL EXAMINATION GENERAL: He is alert and oriented x3. HEENT: Exam reveals the oral cavity and oropharynx with some edema and erythema along the soft palate extending onto the left tonsillar fossa as well as the left retromolar trigone. This is all significant submucosal edema and erythema. There is no definitive ulceration. A flexible laryngoscopy performed at bedside shows a patent nasal cavity. The nasopharynx shows no identifiable mass. The soft palate is bulging on the superior surface with significant edema. The oropharyngeal airway is mildly compromised, significantly improved from what appeared on the CAT scan. The remainder of the larynx and the airway is widely patent. NECK: The neck exam reveals a right parotid mass approximately 2 cm in size as well as left level II adenopathy, the largest measuring approximately 2 cm. LUNGS: Clear to auscultation. HEART: Regular rate and rhythm. LABORATORY White count went from 14.[address] scan reviewed shows a large cell oropharyngeal mass centered along the left tonsillar region extending into the nasopharynx as well as the hypopharynx. There is no definitive fluid collection. It looks to have extensive edema associated with it. There is a 2.1 cm mass in the right parotid gland as well as a 1.8 left level II neck mass. ASSESSMENT AND PLAN Patient with a large oropharyngeal lesion with neck adenopathy as well as a right parotid mass. The right parotid mass can be worked up further as an outpatient. The oropharyngeal mass is difficult to tell whether this is a significant tonsillitis with a peritonsillar phlegmon; however, I do not appreciate fluid at this time and the patient is improving with steroids which could be indicative as well if this was a malignancy just to the improvement of the edema around the malignancy. At this time I would recommend continued IV antibiotics as well as IV steroids. Will continue to see how his improvement goes. Should he continue to improve this would need to be further evaluated for possible biopsy and this could be done in the office or he can also have an ultrasound-guided biopsy of the left neck mass. Should the patient start to experience worsening of his dysphagia or odynophagia and the mass starts to enlarge again and his white count bumps up or fevers begin, then it would be most likely that he developed a peritonsillar abscess in this region. However, at this time he is responding well to IV antibiotics and IV steroids. Recommend continuation of care at this point unless the patient's condition changes. Will plan to follow him up in the office for further work-up of the oropharyngeal lesion and neck mass as well as the parotid mass. Thank you for this consult. Uche Owen AT/BT /7:56 AM /8:07 AM
--- NOTE | 2017-02-02 11:11 | HHI.PR ---
Subjective Remarks Follow-up for oropharyngeal mass. Able to swallow. The patient continues to complain of pain and swelling in his throat and left ear. He has been trying to manage it with current pain medications but pain is currently uncontrolled. He states the pain is worse with movement and swallowing saliva and food. He denies any fevers or chills. Has noticed unintentional 10-20 pound weight loss in the past few months. Objective Vitals Vital Signs Date Time Temp Pulse Resp B/P (MAP) Pulse Ox O2 Delivery O2 Flow Rate FiO2 02/02/17 08:23 20 02/02/17 07:33 97.4 78 18 102/58 (73) 98 02/02/17 04:58 98.6 75 18 120/68 (85) 98 02/02/17 04:04 74 02/02/17 01:51 98.5 76 18 119/68 (85) 97 02/01/17 23:58 77 02/01/17 20:42 98.1 86 18 108/64 (79) 96 02/01/17 19:50 87 02/01/17 15:43 97.6 88 18 105/59 (74) 99 02/01/17 11:52 97.1 84 18 109/64 (79) 97 I/O 02/01/17 02/01/17 02/01/17 02/02/17 02/02/17 02/02/17 07:00 15:00 23:00 07:00 15:00 23:00 Intake Total 0 ml 100 ml 500 ml Balance 0 ml 100 ml 500 ml Intake Oral 0 ml 500 ml IV Total 100 ml # Voids 1 1 # Bowel Movements 1 Result Diagram: 02/01/17 1220 02/01/17 1220 Imaging Last Impressions Neck CT 01/31/17 0000 Signed Impressions: Service Date/Time: Tuesday, January 31, 2017 20:41 - CONCLUSION: 1. Large mass centered on the left tonsillar fossa region. This extends into the left nasopharynx and into the left hypopharynx region. It nearly completely obliterates the oropharynx. It extends towards the right tonsillar fossa. Involvement in the right tonsillar fossa may also be present. This mass is associated with bilateral adenopathy. This either represents extensive inflammatory change/infection versus neoplasm. 2. 2.1 cm mass at the superficial lobe of the right parotic gland inferiorly representing either adenopathy or potentially a primary parotid mass such pleomorphic adenoma. Pito Acosta MD Objective Remarks GENERAL: Well-developed well-nourished. In no acute distress. SKIN: Warm and dry. No lesions noted. HEENT: Normocephalic. Pupils equal and round. Mucous membranes pink and moist. Poor dentition. Oropharynx with diffuse edema, worse on the left, mild erythema. Anterior cervical lymphadenopathy bilaterally. CARDIOVASCULAR: Regular rate and rhythm. No murmur appreciated. RESPIRATORY: No accessory muscle use. Clear to auscultation. Breath sounds equal bilaterally. GASTROINTESTINAL: Abdomen soft, non-tender, nondistended. Bowel sounds x4. MUSCULOSKELETAL: No obvious deformities. No clubbing or cyanosis. No edema. NEUROLOGICAL: Awake and alert. No focal neurological deficits. Moves upper and lower extremities spontaneously. Normal speech. PSYCHIATRIC: Appropriate mood and affect; insight and judgment normal. A/P Problem List: (1) Oropharyngeal mass ICD Code: R22.1 - Localized swelling, mass and lump, neck Status: Acute (2) Leukocytosis ICD Code: D72.829 - Elevated white blood cell count, unspecified Status: Acute (3) Polysubstance abuse ICD Code: F19.10 - Other psychoactive substance abuse, uncomplicated Status: Chronic Assessment and Plan 52 y/o male with a history of IVDA, last use 1 day ago presented to the ED with complaints of throat swelling, and difficultly breathing for a few days. Oropharyngeal mass: Reviewed: Neck CT shows Large mass centered on the left tonsillar fossa region; extends into the left nasopharynx and into the left hypopharynx region; nearly completely obliterates the oropharynx and extends towards the right tonsillar fossa; mass associated with bilateral adenopathy; either represents extensive inflammatory change/infection versus neoplasm. 2.1 cm mass at the superficial lobe of the right parotic gland inferiorly representing either adenopathy or potentially a primary parotid mass such pleomorphic adenoma. Strep screen negative. -Consulted ENT, mass versus infection, continue IV antibiotics and steroids, may need ultrasound biopsy -Continue IV Decadron 4mg q6h -Pain management with liquid [place] and IV Dilaudid, increase dosing frequency -Antibiotics with IV Unasyn -May need biopsy, consult oncology -Soft diet Leukocytosis: Secondary to the above. WBC 14.1/12.9 -Cont Antibiotics as above, suspect leukocytosis may worsen with steroids IVDU/Polysubstance abuse: uses IV heroin and meth -Encouraged to quit Tobacco Use: chronic -counseled on cessation -nicotine patch DVT prophylaxis: Zaid Lew Feb 02, 2017 11:11
[2017-02-02] MEDS: ACETAMINOPHEN 325MG/HYDROcodone 7.5MG/15ML UDC PO PRN ×2 (11:25→18:10)
--- NOTE | 2017-02-02 23:46 | MB ---
cc: NOMAN HUGGINS M.D. DATE OF CONSULTATION 02/02/[address] Pride REASON FOR CONSULTATION Oncology consulted to render opinion guarding patient with neck mass. HISTORY OF PRESENT ILLNESS The patient is a 52-year-old male with history of IV drug use presented to the hospital with complaint of throat swelling and difficulty breathing. He stated that he has similar symptoms 2 years ago and resolved with antibiotic. About 4 months ago he started having itch in his left ear. About a month ago he started having noted some swelling in the left neck. It progressively getting worse and 3 days ago he has difficulty swallowing and breathing. He has lost about 15 pounds over the last month. He is still actively using IV drugs. He denies any fever, chills. Denies chest pain, shortness of breath, cough, any nausea, vomiting, diarrhea, abdominal pain. He has occasional dizziness when he gets up too fast and when he presented to the hospital CT showed large mass in the oropharynx extended into the nasopharynx and hypopharynx. There was also left neck adenopathy of the parotid gland lesion on the right side. He was given antibiotics, steroids and his symptom is slightly improved, although, did not completely resolve. PAST MEDICAL HISTORY IV drug use. PAST SURGICAL HISTORY Excision of cyst. FAMILY HISTORY Grandfather of some sort of cancer. Mother is alive but had history of cancer. Father . He has a brother who is healthy. He has no children. SOCIAL HISTORY He smoked one to one and a half packs a day for more than 30 years. He is actively using IV drug, used mostly heroin and methamphetamine. ALLERGIES No known drug allergy. CURRENT MEDICATIONS 1. Nicotine patch. 2. Protonix. 3. Ampicillin. 4. Dexamethasone. REVIEW OF SYSTEMS CONSTITUTIONAL: As above. EYES: Negative. ENT: As above. CARDIOVASCULAR: Denies chest pain, palpitation. RESPIRATORY: Denies shortness of breath or cough. GI: ___ nausea, vomiting, diarrhea, abdominal pain. : No dysuria, hematuria. MUSCULOSKELETAL: Denies any bone pain, muscle pain. HEMATOLOGY: Negative. ENDOCRINE: Negative DERMATOLOGY: Negative. PSYCHIATRIC: Negative. NEUROLOGIC: Negative. PHYSICAL EXAMINATION VITAL SIGNS: Temperature 97.4, blood pressure 101/63, O2 saturation 100% on room air. GENERAL: He is alert and oriented x3, in no acute distress. HEENT: Atraumatic, normocephalic. Pupils equal, round, reactive to light. Oropharynx the left posterior soft palate appeared to be a little swollen and mildly erythematous. NECK: A little tender in the left neck but I could not palpate any mass. There is fullness in the right parotid gland. CARDIOVASCULAR: Regular S1-S2, no murmur. LUNGS: Clear to auscultation without wheezing or rhonchi. ABDOMEN: Soft, nontender. I could not palpate liver or spleen. EXTREMITIES: No cyanosis, clubbing or edema. BACK: No paravertebral tenderness. SKIN: No rash or petechiae. NEUROLOGIC: Nonfocal. LABORATORY DATA Reviewed. ASSESSMENT 1. Neck mass. He presented with dysphagia. He has similar symptoms 2 years ago which resolved with antibiotic. He started having symptom about a month ago and he is progressively getting worse. The CT scan showed a large mass in the center of the left tonsillar fossa extending to the left nasopharynx and hypopharynx region. It nearly obliterated the oropharynx. It extended to the right tonsillar fossa. There are bilateral neck adenopathy. There is a 2.1 cm mass in the superficial lower right parotid gland also. There was a 1.8 cm node in the left neck around level II. The patient was evaluated by Dr. Salas. He has recommended continued antibiotic and steroid. He is going to have the patient follow up with him in the office for possible biopsy at that time. Since started on antibiotic and steroid the patient's symptoms has improved, although, has not completely resolved, I could only feel some fullness in the right parotid gland area. I could not palpate the left neck lymph node. There is a possibility this could be an infection and inflammatory process, although malignancy cannot be totally ruled out. I recommend that he continue antibiotic and steroid. He can then follow up with Dr. Salas for the biopsy. If for some reason he cannot follow up with ENT the other option is to try to get an ultrasound guided biopsy of the left neck lymph node. I have reviewed CT with radiology and this left neck lymph node is accessible for ultrasound guided biopsy. 2. IV drug use. RECOMMENDATIONS 1. Continue antibiotic and steroid. 2. He can follow up with ENT, Dr. Salas for further ENT exam and biopsy. If for some reason he can not follow up with ENT the next option would be consulting radiology for ultrasound guided biopsy of the left neck lymph node. 3. Continue to monitor CBC. 4. Check HIV screen. Thank you Dr. Pride for asking me to see this patient. MD PAT Abdi/DAYANNA /5:25 PM /11:28 PM CHAU
[2017-02-03] VITALS (8 sets, daily range): BP systolic 116–133; BP diastolic 60–95; PULSE 75–92; RESP 18–21; TEMP 96.3–97.3; O2SAT 94–100
[2017-02-03] MEDS: DEXAMETHASONE SOD PHOS 4 MG/ML VIAL IV PUSH SCH ×4 (00:16→20:15)
[2017-02-03] MEDS: ACETAMINOPHEN 325MG/HYDROcodone 7.5MG/15ML UDC PO PRN ×4 (00:17→21:39)
[2017-02-03] MEDS: HYDROmorphone HCL PF 1 MG/ML VIAL IV PUSH PRN ×7 (00:43→21:48)
[2017-02-03] MEDS: AMPICILLIN-SULBACTAM INJ 3 GM in SODIUM CHLORIDE 0.9% INJ 100 ML IV SCH ×4 (02:00→20:15)
[2017-02-03 07:41] LABS: AUTOMATED NEUTROPHIL # 15.5 TH/MM3 (1.8-7.7); BASOPHIL % 0.2 % (0.0-2.0); HEMATOCRIT 38.7 % (39.0-51.0); HEMO FLAGS DIFF FINAL; LYMPH % 7.5 % (9.0-44.0); LYMPHOCYTE # 1.3 TH/MM3 (1.0-4.8); MEAN CELL VOLUME 83.9 FL (80.0-100.0); MEAN CORPUSCULAR HEMOGLOBIN 27.3 PG (27.0-34.0); MEAN CORPUSCULAR HGB CONC 32.6 % (32.0-36.0); MONO % 3.1 % (0.0-8.0); NEUT % 89.2 % (16.0-70.0); PLATELET COUNT 323 TH/MM3 (150-450); RED BLOOD COUNT 4.61 MIL/MM3 (4.50-5.90); RED CELL DISTRIBUTION WIDTH 14.9 % (11.6-17.2); WHITE BLOOD COUNT 17.4 TH/MM3 (4.0-11.0)
[2017-02-03 08:26] LABS: ALT (GPT) 23 U/L (12-78); ANION GAP 8 MEQ/L (5-15); AST (GOT) 11 U/L (15-37); BICARBONATE 28.6 MEQ/L (21.0-32.0); BLOOD UREA NITROGEN 17 MG/DL (7-18); CHLORIDE 101 MEQ/L (98-107); GLOMERULAR FILTRATION RATE 121 ML/MIN (>89); POTASSIUM 3.7 MEQ/L (3.5-5.1); SODIUM (NA) 138 MEQ/L (136-145)
[2017-02-03 08:28] LABS: ALKALINE PHOSPHATASE 73 U/L (45-117); TOTAL BILIRUBIN ADULT 0.2 MG/DL (0.2-1.0)
--- NOTE | 2017-02-03 08:41 | HHI.PR ---
Subjective Remarks Follow up neck mass. Patient reports continued pain from the left neck mass. Swallowing is no worse. Denies chest pain, dyspnea. Objective Vitals Vital Signs Date Time Temp Pulse Resp B/P (MAP) Pulse Ox O2 Delivery O2 Flow Rate FiO2 02/03/17 07:18 16 02/03/17 04:00 96.3 82 18 117/70 (86) 97 02/03/17 01:17 16 02/03/17 00:00 96.9 84 18 124/84 (97) 98 02/02/17 21:42 85 02/02/17 19:50 98.3 87 18 129/70 (89) 96 02/02/17 15:30 97.4 73 20 101/63 (76) 100 02/02/17 11:31 97.7 81 19 102/59 (73) 96 I/O 02/02/17 02/02/17 02/02/17 02/03/17 02/03/17 02/03/17 07:00 15:00 23:00 07:00 15:00 23:00 Intake Total 720 ml Balance 720 ml Intake Oral 720 ml # Voids 3 Result Diagram: 02/03/17 0703 02/03/17 0703 Imaging Last Impressions Neck CT 01/31/17 0000 Signed Impressions: Service Date/Time: Tuesday, January 31, 2017 20:41 - CONCLUSION: 1. Large mass centered on the left tonsillar fossa region. This extends into the left nasopharynx and into the left hypopharynx region. It nearly completely obliterates the oropharynx. It extends towards the right tonsillar fossa. Involvement in the right tonsillar fossa may also be present. This mass is associated with bilateral adenopathy. This either represents extensive inflammatory change/infection versus neoplasm. 2. 2.1 cm mass at the superficial lobe of the right parotic gland inferiorly representing either adenopathy or potentially a primary parotid mass such pleomorphic adenoma. Pito Acosta MD Objective Remarks General: No acute distress. HEENT: Oropharynx with swelling on the left and mild erythema. Heart: Regular rate and rhythm. No murmur. Lungs: Clear to auscultation bilaterally. No wheezes, rales, or rhonchi. Breathing is nonlabored. Abdomen: Soft, nontender, nondistended. Extremities: No lower extremity edema. Psych: Alert and oriented. Procedures None Urinary Catheter: No Vascular Central Line Catheter: No A/P Problem List: (1) Oropharyngeal mass ICD Code: R22.1 - Localized swelling, mass and lump, neck Status: Acute (2) Leukocytosis ICD Code: D72.829 - Elevated white blood cell count, unspecified Status: Acute (3) Polysubstance abuse ICD Code: F19.10 - Other psychoactive substance abuse, uncomplicated Status: Chronic Assessment and Plan 1. Oropharyngeal mass: Neck CT shows large mass centered on the left tonsillar fossa region. This extends into the left nasopharynx and into the left hypopharynx. Appreciate ENT and oncology recommendations. Continue pain control. Continue IV steroids, Unasyn. If no improvement, consider ultrasound- guided biopsy. 2. Leukocytosis: Secondary to above. Continue antibiotics. 3. History of IV drug abuse: Patient states that his drug use history is remote. 4. Tobacco abuse: Patient has been counseled. Nicotine patch. 5. DVT prophylaxis: SCDs, ambulation. Torsten Huang MD Feb 03, 2017 08:41
[2017-02-03] MEDS: NICOTINE 21 MG/24 HR PATCH T-DERMAL SCH (08:46)
[2017-02-03] MEDS: PANTOPRAZOLE SOD 40 MG DELAYED RELEASE TAB PO SCH (08:47)
[2017-02-03] MEDS: REMOVE OLD PATCH T-DERMAL SCH (08:47)
[2017-02-03] MEDS: SODIUM CHLORIDE 0.9% FLUSH 10 ML FLUSH IV FLUSH SCH ×2 (08:48→21:00)
--- NOTE | 2017-02-03 12:55 | PD.ONC.PN ---
Subjective Subjective Remarks Afebrile Pain improved with medication Objective Data Date Time Temp Pulse Resp B/P (MAP) Pulse Ox O2 Delivery O2 Flow Rate FiO2 02/03/17 12:21 75 02/03/17 08:09 92 02/03/17 08:00 96.5 84 20 125/79 (94) 100 02/03/17 07:18 16 02/03/17 04:00 96.3 82 18 117/70 (86) 97 02/03/17 01:17 16 02/03/17 00:00 96.9 84 18 124/84 (97) 98 02/02/17 21:42 85 02/02/17 19:50 98.3 87 18 129/70 (89) 96 02/02/17 15:30 97.4 73 20 101/63 (76) 100 02/03/17 02/03/17 02/03/17 07:00 15:00 23:00 Intake Total 720 ml 100 ml Balance 720 ml 100 ml Result Diagram: 02/03/1703 02/03/17 0703 Laboratory Results Laboratory Tests Test 02/02/17 20:33 02/03/17 07:03 HIV (1&2) Antibody NEGATIVE White Blood Count 17.4 TH/MM3 Red Blood Count 4.61 MIL/MM3 Hemoglobin 12.6 GM/DL Hematocrit 38.7 % Mean Corpuscular Volume 83.9 FL Mean Corpuscular Hemoglobin 27.3 PG Mean Corpuscular Hemoglobin Concent 32.6 % Red Cell Distribution Width 14.9 % Platelet Count 323 TH/MM3 Mean Platelet Volume 8.4 FL Neutrophils (%) (Auto) 89.2 % Lymphocytes (%) (Auto) 7.5 % Monocytes (%) (Auto) 3.1 % Eosinophils (%) (Auto) 0.0 % Basophils (%) (Auto) 0.2 % Neutrophils # (Auto) 15.5 TH/MM3 Lymphocytes # (Auto) 1.3 TH/MM3 Monocytes # (Auto) 0.5 TH/MM3 Eosinophils # (Auto) 0.0 TH/MM3 Basophils # (Auto) 0.0 TH/MM3 CBC Comment DIFF FINAL Differential Comment Blood Urea Nitrogen 17 MG/DL Creatinine 0.69 MG/DL Random Glucose 161 MG/DL Total Protein 7.5 GM/DL Albumin 2.9 GM/DL Calcium Level 8.8 MG/DL Alkaline Phosphatase 73 U/L Aspartate Amino Transf (AST/SGOT) 11 U/L Alanine Aminotransferase (ALT/SGPT) 23 U/L Total Bilirubin 0.2 MG/DL Sodium Level 138 MEQ/L Potassium Level 3.7 MEQ/L Chloride Level 101 MEQ/L Carbon Dioxide Level 28.6 MEQ/L Anion Gap 8 MEQ/L Estimat Glomerular Filtration Rate 121 ML/MIN Culture Results Microbiology Date/Time Source Procedure Growth Status 01/31/17 19:40 Blood Peripheral Aerobic Blood Culture - Preliminary NO GROWTH IN 3 DAYS Resulted 01/31/17 19:40 Blood Peripheral Anaerobic Blood Culture - Preliminary NO GROWTH IN 3 DAYS Resulted 01/31/17 19:35 Blood Peripheral Aerobic Blood Culture - Preliminary NO GROWTH IN 3 DAYS Resulted 01/31/17 19:35 Blood Peripheral Anaerobic Blood Culture - Preliminary NO GROWTH IN 3 DAYS Resulted 01/31/17 19:40 Throat Group A Streptococcus Screen - Final Positive - Group A Beta Strep Complete 01/31/17 19:40 Throat Group A Streptococcus Screen (AR) - Final Complete Administered Medications Medications (Trade) Dose Ordered Sig/Mary Route PRN Reason Start Time Stop Time Status Last Admin Dose Admin Sodium Chloride (NS Flush) 2 ml UNSCH PRN IV FLUSH FLUSH AFTER USING IV ACCESS 01/31/17 22:45 02/02/17 21:26 Sodium Chloride (NS Flush) 2 ml BID IV FLUSH 02/01/17 09:00 02/03/17 08:48 Dexamethasone Sodium Phosphate (Decadron Inj) 4 mg Q6HR IV PUSH 02/01/17 00:00 02/03/17 06:47 Pantoprazole Sodium (Protonix) 40 mg DAILY PO 02/01/17 09:00 02/03/17 08:47 Ampicillin Sodium/ Sulbactam Sodium 3 gm/Sodium Chloride 100 ml @ 200 mls/hr Q6H IV 02/01/17 02:00 02/03/17 08:46 Nicotine (Habitrol 21 Mg Patch.24 Hr) 1 patch DAILY T-DERMAL 02/01/17 12:45 02/03/17 08:46 Miscellaneous Information 1 DAILY T-DERMAL 02/01/17 12:45 02/03/17 08:47 Hydromorphone HCl (Dilaudid Pf Inj) 1 mg Q3H PRN IV PUSH BREAKTHROUGH PAIN 02/02/17 11:00 02/03/17 10:35 Objective Remarks GENERAL: Middle aged male resting in bed in no acute distress SKIN: Warm and dry. HEAD: Normocephalic. EYES: No injection or drainage. NECK: Left neck swelling CARDIOVASCULAR: +S1/S2. RESPIRATORY: Clear anteriorly. Breathing unlabored. GASTROINTESTINAL: Abdomen soft, non-tender, nondistended. EXTREMITIES: No cyanosis, or edema. MUSCULOSKELETAL: Adequate muscle tone. NEUROLOGICAL: No obvious focal deficit. Awake, alert, and oriented x3. Assessment/Plan Problem List: (1) Oropharyngeal mass ICD Codes: R22.1 - Localized swelling, mass and lump, neck Status: Acute Plan: -- CT of the neck shows a large mass in the oropharynx that and extends into the nasopharynx and hypopharynx. Also shows left neck adenopathy and parotid gland lesion on the right side. -- Will attempt to get biopsy while inpatient as the patient does not have insurance and follow-up will be difficult -- The mass has decreased in size since starting steroids -- HIV-negative Hx/Workup: The patient has a history of IV drug abuse who presented with left- sided neck swelling, trouble swallowing and difficulty breathing. Apparently he had a similar situation approximately 2 years ago that reportedly cleared with antibiotics. He has reportedly reportedly lost approximately 15 pounds over the last month. Assessment 52 -year-old male with history of IV drug abuse presents with left-sided neck mass Plan 1. Consult invasive radiology to attempt biopsy of neck mass 2. Continue steroids and antibiotics 3. Supportive care Attending Statement The exam, history, and the medical decision-making described in the above note were completed with the assistance of the mid-level provider. I reviewed and agree with the findings presented. I attest that I had a [id number] encounter with the patient on the same day, and personally performed and documented my assessment and findings in the medical record. Still has dysphagia but slightly improved. Discussed case with radiology and consult radiology for US guided biopsy left neck level II enlarged LN. Continue abx and steroid. HIV pending. Jeanine Monroy Feb 03, 2017 12:55 Conor Leal MD Feb 03, 2017 17:05
[2017-02-03] MEDS ORDERED: LIDOCAINE HCL 1% 20 ML VIAL ONE (16:22)
--- NOTE | 2017-02-03 16:38 | RADRPT ---
EXAM DATE/TIME: 02/03/2017 15:15 [facility] COMPARISON: No previous studies available for comparison. INDICATIONS : Enlarged lymph node left neck. I had a discussion with Dr. Leal concerning where to biopsy for result s pertain to the oral pharyngeal mass. It was felt a left lymph node in the level II chain was the mo st prudent for biopsy. MEDICAL HISTORY : Gastroesophageal reflux disease. IV drug abuse. SURGICAL HISTORY : Cyst removed from tailbone. ENCOUNTER: Subsequent ACUITY: 1 week PAIN SCORE: 2/10 LOCATION: Left neck ORGAN: Left neck SPECIMENS: Three core specimen(s) submitted for pathologic evaluation. DEVICE: 20 gauge Temno needle Post procedure scanning reveals no hematoma or other complication. The possibility does exist that the tissue obtained will be non-diagnostic. If the sample is non-rosalinda gnostic a repeat biopsy or surgical biopsy may need to be performed. TECHNIQUE: 1. Ultrasound guidance for needle biopsy. 2. Needle biopsy. The risks, benefits and alternatives to the procedure were explained and verbal and written consent w as obtained. The site was prepped in sterile fashion. Full sterile technique was used, including ca p, mask, sterile gloves and gown and a large sterile sheet. Hand hygiene and 2% chlorhexidine and/or betadine/alcohol prep was utilized per protocol for cutaneous antisepsis. The skin and subcutaneous tissues were infiltrated with local anesthetic solution. Sterile gel and sterile probe cover were u tilized for ultrasound guidance. With the patient on the ultrasound table, images were obtained. Correlation to the prior CT scan of t he soft tissues of the neck was performed. An enlarged level II lymph node was targeted during the bi opsy. A needle was advanced into the identified target and the number of specimens as above obtained and oliva bmitted for pathologic evaluation. The patient tolerated the procedure well and left the ultrasound suite in stable condition. CONCLUSION: Uncomplicated ultrasound guided needle biopsy of a level II lymph node on the left. Aleksey Trinidad Jr., MD on February 03, 2017 at 16:35 Board Certified Radiologist. This report was verified electronically.
[2017-02-04] VITALS: BP 132/87; PULSE 70; PULSE 76; RESP 16; TEMP 96.3; O2SAT 95
[2017-02-04] MEDS: DEXAMETHASONE SOD PHOS 4 MG/ML VIAL IV PUSH SCH ×2 (00:55→05:05)
[2017-02-04] MEDS: HYDROmorphone HCL PF 1 MG/ML VIAL IV PUSH PRN ×3 (00:56→07:55)
[2017-02-04] MEDS: AMPICILLIN-SULBACTAM INJ 3 GM in SODIUM CHLORIDE 0.9% INJ 100 ML IV SCH ×2 (00:58→07:56)
[2017-02-04 04:00] VITALS: BP 118/69; PULSE 77; PULSE 81; RESP 16; TEMP 96.7; O2SAT 96
[2017-02-04] MEDS: ACETAMINOPHEN 325MG/HYDROcodone 7.5MG/15ML UDC PO PRN ×3 (04:01→14:33)
[2017-02-04 07:45] LABS: AUTOMATED NEUTROPHIL # 14.8 TH/MM3 (1.8-7.7); BASOPHIL % 0.2 % (0.0-2.0); HEMATOCRIT 40.3 % (39.0-51.0); LYMPH % 6.8 % (9.0-44.0); LYMPHOCYTE # 1.1 TH/MM3 (1.0-4.8); MEAN CELL VOLUME 84.2 FL (80.0-100.0); MEAN CORPUSCULAR HEMOGLOBIN 27.8 PG (27.0-34.0); MEAN CORPUSCULAR HGB CONC 33.1 % (32.0-36.0); MONO % 2.8 % (0.0-8.0); NEUT % 90.2 % (16.0-70.0); PLATELET COUNT 304 TH/MM3 (150-450); RED BLOOD COUNT 4.79 MIL/MM3 (4.50-5.90); RED CELL DISTRIBUTION WIDTH 14.6 % (11.6-17.2); WHITE BLOOD COUNT 16.4 TH/MM3 (4.0-11.0)
[2017-02-04 07:47] VITALS: BP 134/74; PULSE 72; RESP 16; TEMP 97.1; O2SAT 94
[2017-02-04 07:53] LABS: HEMO FLAGS AUTO DIFF
[2017-02-04 08:01] LABS: BICARBONATE 27.6 MEQ/L (21.0-32.0)
[2017-02-04] MEDS: REMOVE OLD PATCH T-DERMAL SCH (08:53)
[2017-02-04] MEDS: NICOTINE 21 MG/24 HR PATCH T-DERMAL SCH (08:53)
[2017-02-04] MEDS: SODIUM CHLORIDE 0.9% FLUSH 10 ML FLUSH IV FLUSH SCH (08:55)
[2017-02-04] MEDS: PANTOPRAZOLE SOD 40 MG DELAYED RELEASE TAB PO SCH (08:55)
[2017-02-04 09:54] LABS: BANDS 11 % (0-6); PLATELET ESTIMATE SMEAR NORMAL (NORMAL); PLATELET MORPHOLOGY NORMAL (NORMAL); POLYS (SEG NEUTROPHILS) 68 % (16-70); SCAN/DIFF FINAL DIFF MANUAL; WBC DIFF SAMPLE 100
[2017-02-04] MEDS ORDERED: MEDR4PAK PO (11:45)
[2017-02-04] MEDS ORDERED: AMOX500T PO (11:47)
--- NOTE | 2017-02-04 11:48 | PD.ONC.PN ---
Subjective Subjective Remarks Afebrile overnight. Patient still with throat pain, but wants to go home. Able to swallow liquids. Objective Data Date Time Temp Pulse Resp B/P (MAP) Pulse Ox O2 Delivery O2 Flow Rate FiO2 02/04/17 07:47 97.1 72 16 134/74 (94) 94 02/04/17 04:00 81 02/04/17 04:00 96.7 77 16 118/69 (85) 96 02/04/17 00:00 70 02/04/17 00:00 96.3 76 16 132/87 (102) 95 02/03/17 20:18 18 02/03/17 20:18 16 02/03/17 20:00 96.8 79 18 130/83 (99) 94 02/03/17 16:00 97.3 78 20 133/95 (108) 98 02/03/17 12:21 75 02/03/17 12:00 96.6 82 21 116/60 (78) 98 02/04/17 02/04/17 02/04/17 07:00 15:00 23:00 Intake Total 480 ml Balance 480 ml Result Diagram: 02/04/17 0720 02/04/17 0720 Laboratory Results Laboratory Tests Test 02/04/17 07:20 White Blood Count 16.4 TH/MM3 Red Blood Count 4.79 MIL/MM3 Hemoglobin 13.3 GM/DL Hematocrit 40.3 % Mean Corpuscular Volume 84.2 FL Mean Corpuscular Hemoglobin 27.8 PG Mean Corpuscular Hemoglobin Concent 33.1 % Red Cell Distribution Width 14.6 % Platelet Count 304 TH/MM3 Mean Platelet Volume 8.3 FL Neutrophils (%) (Auto) 90.2 % Lymphocytes (%) (Auto) 6.8 % Monocytes (%) (Auto) 2.8 % Eosinophils (%) (Auto) 0.0 % Basophils (%) (Auto) 0.2 % Neutrophils # (Auto) 14.8 TH/MM3 Lymphocytes # (Auto) 1.1 TH/MM3 Monocytes # (Auto) 0.5 TH/MM3 Eosinophils # (Auto) 0.0 TH/MM3 Basophils # (Auto) 0.0 TH/MM3 CBC Comment AUTO DIFF Differential Total Cells Counted 100 Neutrophils % (Manual) 68 % Band Neutrophils % 11 % Lymphocytes % 19 % Monocytes % 2 % Neutrophils # (Manual) 13.0 TH/MM3 Differential Comment FINAL DIFF MANUAL Platelet Estimate NORMAL Platelet Morphology Comment NORMAL Red Cell Morphology Comment NORMAL Blood Urea Nitrogen 14 MG/DL Creatinine 0.71 MG/DL Random Glucose 186 MG/DL Calcium Level 8.7 MG/DL Sodium Level 136 MEQ/L Potassium Level 4.0 MEQ/L Chloride Level 100 MEQ/L Carbon Dioxide Level 27.6 MEQ/L Anion Gap 8 MEQ/L Estimat Glomerular Filtration Rate 117 ML/MIN Administered Medications Medications (Trade) Dose Ordered Sig/Mary Route PRN Reason Start Time Stop Time Status Last Admin Dose Admin Sodium Chloride (NS Flush) 2 ml UNSCH PRN IV FLUSH FLUSH AFTER USING IV ACCESS 01/31/17 22:45 02/02/17 21:26 Sodium Chloride (NS Flush) 2 ml BID IV FLUSH 02/01/17 09:00 02/04/17 08:55 Dexamethasone Sodium Phosphate (Decadron Inj) 4 mg Q6HR IV PUSH 02/01/17 00:00 02/04/17 05:05 Pantoprazole Sodium (Protonix) 40 mg DAILY PO 02/01/17 09:00 02/04/17 08:55 Ampicillin Sodium/ Sulbactam Sodium 3 gm/Sodium Chloride 100 ml @ 200 mls/hr Q6H IV 02/01/17 02:00 02/04/17 07:56 Nicotine (Habitrol 21 Mg Patch.24 Hr) 1 patch DAILY T-DERMAL 02/01/17 12:45 02/04/17 08:53 Miscellaneous Information 1 DAILY T-DERMAL 02/01/17 12:45 02/04/17 08:53 Hydromorphone HCl (Dilaudid Pf Inj) 1 mg Q3H PRN IV PUSH BREAKTHROUGH PAIN 02/02/17 11:00 02/04/17 07:55 Acetaminophen/ Hydrocodone Bitart (Hycet 325-7.5 Mg Liq) 15 ml Q4HR PRN PO PAIN SCALE 6 TO 10 02/03/17 08:45 02/04/17 08:59 Objective Remarks GENERAL: Middle aged male upright in bed in nad. SKIN: Warm and dry. HEAD: Normocephalic. Pharynx: fullness in left tonsillar area. EYES: No injection or drainage. NECK: Supple, trachea midline. CARDIOVASCULAR: Regular rate and rhythm RESPIRATORY: Breath sounds equal bilaterally. No accessory muscle use. GASTROINTESTINAL: Abdomen soft, non-tender, nondistended. EXTREMITIES: No cyanosis NEUROLOGICAL: No obvious focal deficit. Awake, alert, and oriented x3. Assessment/Plan Problem List: (1) Oropharyngeal mass ICD Codes: R22.1 - Localized swelling, mass and lump, neck Status: Acute Plan: -- CT of the neck shows a large mass in the oropharynx that and extends into the nasopharynx and hypopharynx. Also shows left neck adenopathy and parotid gland lesion on the right side. --s/p biopsy. pathology pending. -- The mass has decreased in size since starting steroids -- HIV-negative ++strep Hx/Workup: The patient has a history of IV drug abuse who presented with left- sided neck swelling, trouble swallowing and difficulty breathing. Apparently he had a similar situation approximately 2 years ago that reportedly cleared with antibiotics. He has reportedly reportedly lost approximately 15 pounds over the last month. Assessment 52 -year-old male with history of IV drug abuse presents with left-sided neck mass Plan 1. oncology clear for discharge 2. fs faxed to new patient referrals. 3. once discharged follow up in clinic Attending Statement The exam, history, and the medical decision-making described in the above note were completed with the assistance of the mid-level provider. I reviewed and agree with the findings presented. I attest that I had a [id number] encounter with the patient on the same day, and personally performed and documented my assessment and findings in the medical record. Neck pain and dysphagia improved. S/p biopsy left neck LN. Path pending. Can be d/c and f/ u oncology and ENT. Sandi Shah Feb 04, 2017 11:48 Conor Leal MD Feb 04, 2017 15:01
--- NOTE | 2017-02-04 11:50 | HHI.DS ---
Discharge Summary Admission Date Jan 31, 2017 at 22:47 Admitting Diagnosis left oropharyngeal mass (1) Oropharyngeal mass ICD Codes: R22.1 - Localized swelling, mass and lump, neck Status: Acute (2) Leukocytosis ICD Codes: D72.829 - Elevated white blood cell count, unspecified Status: Acute (3) Polysubstance abuse ICD Codes: F19.10 - Other psychoactive substance abuse, uncomplicated Status: Chronic Procedures Lymph node biopsy ultrasound 02/03/17 sent and pathology pending. Brief History 52 y/o male with a history of IVDA, last use 1 day ago presented to the ED with complaints of throat swelling, and difficultly breathing for a few days. He states for the last few days he has been unable to swallow and it is hard to breath. He denies no fevers, chills, chest pain, nausea or vomiting. He states this happened 2 years ago and he was treated with antibiotics. He does also states he has been dizzy for a few days but unsure if it because of his drug use. He does have multiple skin ulcers on arms and legs from injecting drugs, he denies any MRSA history. CBC/BMP: 02/04/17 0720 02/04/17 0720 Significant Findings Laboratory Tests Test 02/01/17 12:20 02/02/17 20:33 02/03/17 07:03 02/04/17 07:20 White Blood Count 12.9 TH/MM3 (4.0-11.0) 17.4 TH/MM3 (4.0-11.0) 16.4 TH/MM3 (4.0-11.0) Red Blood Count 4.45 MIL/MM3 (4.50-5.90) Hemoglobin 12.5 GM/DL (13.0-17.0) 12.6 GM/DL (13.0-17.0) Hematocrit 36.7 % (39.0-51.0) 38.7 % (39.0-51.0) Neutrophils (%) (Auto) 88.7 % (16.0-70.0) 89.2 % (16.0-70.0) 90.2 % (16.0-70.0) Lymphocytes (%) (Auto) 7.9 % (9.0-44.0) 7.5 % (9.0-44.0) 6.8 % (9.0-44.0) Neutrophils # (Auto) 11.5 TH/MM3 (1.8-7.7) 15.5 TH/MM3 (1.8-7.7) 14.8 TH/MM3 (1.8-7.7) Random Glucose 238 MG/DL (74-106) 161 MG/DL (74-106) 186 MG/DL (74-106) Albumin 2.9 GM/DL (3.4-5.0) Aspartate Amino Transf (AST/SGOT) 11 U/L (15-37) Band Neutrophils % 11 % (0-6) Neutrophils # (Manual) 13.0 TH/MM3 (1.8-7.7) Imaging Last Impressions Lymph Node Biopsy Ultrasound 02/03/17 0000 Signed Impressions: Service Date/Time: January 15:15 - CONCLUSION: Uncomplicated ultrasound guided needle biopsy of a level II lymph node on the left. Aleksey Trinidad Jr., MD Neck CT 01/31/17 0000 Signed Impressions: Service Date/Time: Tuesday, January 31, 2017 20:41 - CONCLUSION: 1. Large mass centered on the left tonsillar fossa region. This extends into the left nasopharynx and into the left hypopharynx region. It nearly completely obliterates the oropharynx. It extends towards the right tonsillar fossa. Involvement in the right tonsillar fossa may also be present. This mass is associated with bilateral adenopathy. This either represents extensive inflammatory change/infection versus neoplasm. 2. 2.1 cm mass at the superficial lobe of the right parotic gland inferiorly representing either adenopathy or potentially a primary parotid mass such pleomorphic adenoma. Pito Acosta MD PE at Discharge GENERAL: This is a well-nourished, well-developed patient, in no apparent distress. SKIN: No rashes, ecchymoses or lesions. Warm and dry. HEAD: Atraumatic. Normocephalic. EYES: Pupils equal round and reactive. Extraocular motions intact. No scleral icterus. No injection or drainage. ENT: Nose without bleeding, purulent drainage or septal hematoma. Airway patent. NECK: Trachea midline. Bilateral lymphadenopathy. Sore to palpation. CARDIOVASCULAR: Regular rate and rhythm without murmurs, gallops, or rubs. RESPIRATORY: Clear to auscultation. Breath sounds equal bilaterally. No wheezes , rales, or rhonchi. GASTROINTESTINAL: Abdomen soft, non-tender, nondistended. MUSCULOSKELETAL: Extremities without clubbing, cyanosis, or edema. No joint tenderness, effusion, or edema noted. No calf tenderness. NEUROLOGICAL: Awake and alert. Motor and sensory grossly within normal limits. Normal speech. Hospital Course Mr. Rojas is a 52 y/o male with a history of IVDA, who used 1 day prior to coming to the ED with complaints of throat swelling, and difficultly breathing for a few days. Apparently he had a similar situation approximately 2 years ago that reportedly cleared with antibiotics. He has reportedly reportedly lost approximately 15 pounds over the last month. WBC 14.1 with bandemia on presentation. Throat swab positive for Group A beta strep. A neck CT on the patient was performed showing a large mass on the left tonsillar fossa region extending to the left nasopharynx and into the left hypopharynx region and extends to the right tonsillar fossa. Biopsy was obtained and pathology pending. Was placed on Unasyn 3 gram for 3 days and discharged on Amoxicillin to complete a total of 10 day course antibiotic. Was also placed on Decadron 4 mg q6h IV and upon discharge given a Medrol dose pack to complete. Patient was also given a Nicotine patch while in the hospital and encouraged cessation. Patient does have a history of IVDU and states that his drug use history is remote. Pt Condition on Discharge: Stable Discharge Disposition: Discharge Home Discharge Instructions DIET: Follow Instructions for: As Tolerated, No Restrictions Speech Therapy-Diet Recommenda: Regular Activities you can perform: Regular-No Restrictions Follow up Referrals: Ear Nose Throat - 1 Week Oncology - 1 Week PCP Follow-up - 1 Week New Medications: Amoxicillin (Amoxicillin) 875 Mg Tab 875 MG PO BID for Infection, #14 TAB 0 Refills Methylprednisolone Dosepak (Medrol Dosepak) 4 Mg Dspk 4 MG PO DIRECTED for inflammation for 7 Days, #1 DSPK 0 Refills Per Pharmacist direction Hydrocodone/Acetaminophen (Hydrocodon-Acetamin 7.5-325/15) 7.5 Mg-325 Mg/15 Ml ( 15 Ml) Solution 15 ML PO Q6HR PRN for PAIN SCALE 6 TO 10, #120 ML 0 Refills Marylin Fernandez Feb 04, 2017 11:50
[2017-02-04] MEDS ORDERED: HYDR1SOL6 PO (11:58)
[2017-02-04] MEDS ORDERED: AMOX875T PO (11:58)
--- NOTE | 2017-02-04 17:56 | HHI.PR ---
Subjective Remarks Follow up neck mass. Patient seen and examined today. Lying in bed comfortably. States that the pain in his neck is still present but aided by pain medication. Tolerating liquids, encouraged to advance as tolerated. Denies any new acute complaints overnight. Denies any recent fever, chills, cough, shortness of breath, n/v/d, or dysuria. Objective Vitals Vital Signs Date Time Temp Pulse Resp B/P (MAP) Pulse Ox O2 Delivery O2 Flow Rate FiO2 02/04/17 07:47 97.1 72 16 134/74 (94) 94 02/04/17 04:00 81 02/04/17 04:00 96.7 77 16 118/69 (85) 96 02/04/17 00:00 70 02/04/17 00:00 96.3 76 16 132/87 (102) 95 02/03/17 20:18 18 02/03/17 20:18 16 02/03/17 20:00 96.8 79 18 130/83 (99) 94 I/O 02/03/17 02/03/17 02/03/17 02/04/17 02/04/17 02/04/17 07:00 15:00 23:00 07:00 15:00 23:00 Intake Total 720 ml 580 ml 480 ml 480 ml Balance 720 ml 580 ml 480 ml 480 ml Intake Oral 720 ml 480 ml 480 ml 480 ml IV Total 100 ml # Voids 3 2 3 Result Diagram: 02/04/17 0720 02/04/17 0720 Imaging Last Impressions Lymph Node Biopsy Ultrasound 02/03/17 0000 Signed Impressions: Service Date/Time: January 15:15 - CONCLUSION: Uncomplicated ultrasound guided needle biopsy of a level II lymph node on the left. Aleksey Trinidad Jr., MD Neck CT 01/31/17 0000 Signed Impressions: Service Date/Time: Tuesday, January 31, 2017 20:41 - CONCLUSION: 1. Large mass centered on the left tonsillar fossa region. This extends into the left nasopharynx and into the left hypopharynx region. It nearly completely obliterates the oropharynx. It extends towards the right tonsillar fossa. Involvement in the right tonsillar fossa may also be present. This mass is associated with bilateral adenopathy. This either represents extensive inflammatory change/infection versus neoplasm. 2. 2.1 cm mass at the superficial lobe of the right parotic gland inferiorly representing either adenopathy or potentially a primary parotid mass such pleomorphic adenoma. Pito Acosta MD Objective Remarks GENERAL: This is a well-nourished, well-developed patient, in no apparent distress. SKIN: No rashes, ecchymoses or lesions. Warm and dry. HEAD: Atraumatic. Normocephalic. EYES: Pupils equal round and reactive. Extraocular motions intact. No scleral icterus. No injection or drainage. ENT: Nose without bleeding, purulent drainage or septal hematoma. Airway patent. NECK: Trachea midline. Bilateral lymphadenopathy. Sore to palpation. Some erythema noted. CARDIOVASCULAR: Regular rate and rhythm without murmurs, gallops, or rubs. RESPIRATORY: Clear to auscultation. Breath sounds equal bilaterally. No wheezes , rales, or rhonchi. GASTROINTESTINAL: Abdomen soft, non-tender, nondistended. MUSCULOSKELETAL: Extremities without clubbing, cyanosis, or edema. No joint tenderness, effusion, or edema noted. No calf tenderness. NEUROLOGICAL: Awake and alert. Motor and sensory grossly within normal limits. Normal speech. Procedures None A/P Problem List: (1) Oropharyngeal mass ICD Code: R22.1 - Localized swelling, mass and lump, neck Status: Acute (2) Leukocytosis ICD Code: D72.829 - Elevated white blood cell count, unspecified Status: Acute (3) Polysubstance abuse ICD Code: F19.10 - Other psychoactive substance abuse, uncomplicated Status: Chronic Assessment and Plan 1. Oropharyngeal mass: Neck CT shows large mass centered on the left tonsillar fossa region. This extends into the left nasopharynx and into the left hypopharynx. ENT and oncology have been following patient, recommendations for outpatient follow up with discharge. Continue pain control. Will write for Medrol dose pack on discharge as well as amoxicillin x 7 days to complete course. Biopsy performed and awaiting pathology. Encouraged patient to follow up with oncology in the outpatient setting. 2. Leukocytosis: Secondary to above. Continue antibiotics. 3. History of IV drug abuse: Patient states that his drug use history is remote. 4. Tobacco abuse: Patient has been counseled. Nicotine patch. 5. DVT prophylaxis: SCDs, ambulation. Discharge Planning Discharge home today. Problem Qualifiers (1) Leukocytosis: Qualified Codes: D72.829 - Elevated white blood cell count, unspecified Marylin Fernandez Feb 04, 2017 17:56
== END 2017-02-04 14:39 | disposition home or self-care (01) | DRG 804 ==
LOC: NEPK 17:45 → NEDA 22:47 → NEDH 02-01 02:47 → NEPHCDU 02-01 03:51 → HOCB 02-02 22:29
PROVIDERS: ADMIT Family Medicine; ATTEND Family Medicine
PROC: 0CJS8ZZ Inspection of Larynx, Via Natural or Artificial Opening Endoscopic (ICD-10-PCS; 2017-02-02)
PROC: 07B23ZX Excision of Left Neck Lymphatic, Percutaneous Approach, Diagnostic (ICD-10-PCS; principal; 2017-02-03)
DX: R59.0 Localized enlarged lymph nodes (principal); R13.10 Dysphagia, unspecified; J35.8 Other chronic diseases of tonsils and adenoids; F17.210 Nicotine dependence, cigarettes, uncomplicated; F19.10 Other psychoactive substance abuse, uncomplicated; L98.499 Non-pressure chronic ulcer of skin of other sites with unspecified severity
CPT/HCPCS: 38505; 70491; 76942; 80048; 80053; 83605; 85007; 85025; 85027; 85610; 85730; 86703; 87040; 87081; 87880; 88305; 96365; 96375; J0295; J1100; J1170; J7030; Q9967

== ENCOUNTER 2017-02-11 04:07 | Inpatient (IN) | payer SELFPAY ==
[2017-02-10 05:00] VITALS: PULSE 81
[~2017-02-11] VITALS: Ht 182.9 cm; Wt 86.6 kg
[2017-02-11] VITALS (7 sets, daily range): BP systolic 100–126; BP diastolic 56–80; PULSE 67–105; RESP 16–20; TEMP 97.1–100; O2SAT 94–100
[~2017-02-11 04:07] MED LIST changes: +AMOX500T PO; +AMOX875T PO; -HYDR-3533 PO; +HYDR1SOL6 PO; +MEDR4PAK PO
[2017-02-11] MEDS ORDERED: SODIUM CHLOR 0.9% 1000 ML INJ 1,000 ML IV ONE ×3 (04:18→05:00)
[2017-02-11] MEDS ORDERED: CEFEPIME INJ 2,000 MG in SODIUM CHLORIDE 0.9% INJ 100 ML IV STA (04:18)
[2017-02-11] MEDS ORDERED: VANCOMYCIN INJ 1,000 MG in SODIUM CHLOR 0.9% 250 ML INJ 250 ML IV STA (04:18)
--- NOTE | 2017-02-11 04:28 | PD ---
HPI Chief Complaint: Edema Time Seen by Provider: 04:12 Travel History International Travel<30 days: No Contact w/Intl Traveler<30days: No Traveled to known affect area: No History of Present Illness HPI 52 y/o male presents with swelling to his arms. He is drowsy and very difficult to get history from and states he injected heroin and meth but cannot tell me the time as he keeps falling asleep. He presents by ambulance and history is very limited PFSH Past Medical History Narrative Medical By records ADHD: Yes Arthritis: No Asthma: No Blood Disorders: No Bipolar Disorder: Yes Anxiety: No Depression: No Heart Rhythm Problems: No Cancer: No Cardiovascular Problems: No High Cholesterol: No Chemotherapy: No Chest Pain: No Congestive Heart Failure: No COPD: No Cerebrovascular Accident: No Diabetes: No Diminished Hearing: No Endocrine: No GERD: Yes Genitourinary: Yes Hiatal Hernia: No Immune Disorder: No Implanted Vascular Access Dvce: No Musculoskeletal: No Neurologic: No Psychiatric: No Reproductive: No Respiratory: No Immunizations Current: No Migraines: No Radiation Therapy: No Renal Failure: No Seizures: No Sickle Cell Disease: No Sleep Apnea: Yes Thyroid Disease: No Ulcer: No Past Surgical History Narrative Surgical By records Abdominal Surgery: No AICD: No Arteriovenous Shunt: No Cardiac Surgery: No Ear Surgery: No Endocrine Surgery: No Eye Surgery: No Genitourinary Surgery: No Gynecologic Surgery: No Insulin Pump: No Joint Replacement: No Neurologic Surgery: No Oral Surgery: No Pacemaker: No Thoracic Surgery: No Other Surgery: Yes (PILONIDAL CYST ) Social History Narrative Social History By records Alcohol Use: No Tobacco Use: Yes (pack a day ) Substance Use: Yes ( iv heroin and methamphetamines) Allergies-Medications (Allergen,Severity, Reaction): Coded Allergies: No Known Allergies (Verified , 02/01/17) Reported Meds & Prescriptions Reported Meds & Active Scripts Active Amoxicillin 875 Mg Tab 875 Mg PO BID Hydrocodon-Acetamin 7.5-325/15 (Hydrocodone/Acetaminophen) 7.5 Mg-325 Mg/15 Ml ( 15 Ml) Solution 15 Ml PO Q6HR PRN Medrol Dosepak (Methylprednisolone) 4 Mg Dspk 4 Mg PO DIRECTED 7 Days Per Pharmacist direction Review of Systems ROS Limitations: Poor Historian Physical Exam Exam Limitations: Poor Historian Narrative GENERAL: Well-nourished, well-developed patient. SKIN: Abscess noted to right axilla, multiple subcentimeter lesions noted to arms HEAD: Normocephalic and atraumatic. EYES: No injection or drainage. ENT: No nasal drainage noted. NECK: Supple, trachea midline. CARDIOVASCULAR: Regular rate and rhythm RESPIRATORY: Breath sounds equal bilaterally. No accessory muscle use. GASTROINTESTINAL: Abdomen soft, non-tender, nondistended. EXTREMITIES: No specific joint pain but limited exam, diffuse bilateral upper arm edema noted, strong radial pulses noted, no lacerations over, compartments soft. NEUROLOGICAL: Opens eyes to voice, moves all extremities, slurred speech Data Data Last Documented VS Vital Signs Date Time Temp Pulse Resp B/P (MAP) Pulse Ox O2 Delivery O2 Flow Rate FiO2 02/11/17 04:14 100.0 105 20 126/80 (95) 97 Room Air Orders Orders Electrocardiogram (02/11/17 04:18) Complete Blood Count With Diff (02/11/17 04:18) Comprehensive Metabolic Panel (02/11/17 04:18) Prothrombin Time / Inr (Pt) (02/11/17 04:18) Act Partial Throm Time (Ptt) (02/11/17 04:18) Lactic Acid Sepsis Protocol (02/11/17 04:18) Magnesium (Mg) (02/11/17 04:18) Phosphorus (Po4) (02/11/17 04:18) Urinalysis - C+S If Indicated (02/11/17 04:18) Blood Culture (02/11/17 04:18) Chest, Single Ap (02/11/17 04:18) Ecg Monitoring (02/11/17 04:18) Iv Access Insert/Monitor (02/11/17 04:18) Oximetry (02/11/17 04:18) Sodium Chlor 0.9% 1000 Ml Inj (Ns 1000 M (02/11/17 04:18) Sodium Chlor 0.9% 1000 Ml Inj (Ns 1000 M (02/11/17 04:18) Vancomycin Inj (Vancomycin Inj) (02/11/17 04:18) Cefepime Inj (Maxipime Inj) (02/11/17 04:18) Sodium Chlor 0.9% 1000 Ml Inj (Ns 1000 M (02/11/17 05:00) Chest, Pa & Lat (02/11/17 ) Admit To Inpatient (02/11/17 ) Vital Signs (Adult) Q4H (02/11/17 05:01) Activity Oob With Assistance (02/11/17 05:01) E Commerce Specialist / Telemetry .CONTINUOUS (02/11/17 05:01) Diet Heart Healthy (02/11/17 Breakfast) Sodium Chloride 0.9% Flush (Ns Flush) (02/11/17 05:15) Sodium Chloride 0.9% Flush (Ns Flush) (02/11/17 09:00) Naloxone Inj (Narcan Inj) (02/11/17 05:15) Docusate Sodium-Senna (Rebekah-Colace) (02/11/17 09:00) Magnesium Hydroxide Liq (Milk Of Magnesi (02/11/17 05:15) Sennosides (Senokot) (02/11/17 05:15) Bisacodyl Supp (Dulcolax Supp) (02/11/17 05:15) Lactulose Liq (Lactulose Liq) (02/11/17 05:15) Inpatient Certification (02/11/17 ) Cefepime Inj (Maxipime Inj) (02/11/17 17:00) Admit Order (Ed Use Only) (02/11/17 05:41) Wound Culture And Gram Stain (02/11/17 05:41) Labs Laboratory Tests Test 02/11/17 04:20 02/11/17 04:25 Urine Color YELLOW Urine Turbidity CLEAR Urine pH 5.5 Urine Specific [place] 1.028 Urine Protein TRACE mg/dL Urine Glucose (UA) NEG mg/dL Urine Ketones NEG mg/dL Urine Occult Blood NEG Urine Nitrite NEG Urine Bilirubin NEG Urine Urobilinogen 2.0 MG/DL Urine Leukocyte Esterase NEG Urine WBC LESS THAN 1 /hpf Urine Mucus FEW /lpf Microscopic Urinalysis Comment CATH-CULT NOT IND White Blood Count 20.9 TH/MM3 Red Blood Count 4.71 MIL/MM3 Hemoglobin 13.2 GM/DL Hematocrit 39.6 % Mean Corpuscular Volume 84.1 FL Mean Corpuscular Hemoglobin 28.0 PG Mean Corpuscular Hemoglobin Concent 33.3 % Red Cell Distribution Width 14.9 % Platelet Count 212 TH/MM3 Mean Platelet Volume 8.5 FL Neutrophils (%) (Auto) 75.5 % Lymphocytes (%) (Auto) 13.3 % Monocytes (%) (Auto) 8.7 % Eosinophils (%) (Auto) 1.9 % Basophils (%) (Auto) 0.6 % Neutrophils # (Auto) 15.7 TH/MM3 Lymphocytes # (Auto) 2.8 TH/MM3 Monocytes # (Auto) 1.8 TH/MM3 Eosinophils # (Auto) 0.4 TH/MM3 Basophils # (Auto) 0.1 TH/MM3 CBC Comment DIFF FINAL Differential Comment Prothrombin Time 12.0 SEC Prothromb Time International Ratio 1.1 RATIO Activated Partial Thromboplast Time 30.1 SEC Blood Urea Nitrogen 21 MG/DL Creatinine 0.98 MG/DL Random Glucose 113 MG/DL Total Protein 7.5 GM/DL Albumin 3.3 GM/DL Calcium Level 8.7 MG/DL Phosphorus Level 3.5 MG/DL Magnesium Level 2.2 MG/DL Alkaline Phosphatase 96 U/L Aspartate Amino Transf (AST/SGOT) 89 U/L Alanine Aminotransferase (ALT/SGPT) 355 U/L Total Bilirubin 0.7 MG/DL Sodium Level 135 MEQ/L Potassium Level 3.9 MEQ/L Chloride Level 101 MEQ/L Carbon Dioxide Level 25.6 MEQ/L Anion Gap 8 MEQ/L Estimat Glomerular Filtration Rate 81 ML/MIN Lactic Acid Level 0.6 mmol/L MDM Medical Decision Making Medical Screen Exam Complete: Yes Emergency Medical Condition: Yes Medical Record Reviewed: Yes (past history confirm) Interpretation(s) EKG shows sinus tachycardia 105, no ST elevation or depression, and no arrhythmias. No significant T-wave inversions. CBC & BMP Diagram 02/11/17 04:25 Total Protein 7.5, Albumin 3.3 L, Calcium Level 8.7, Phosphorus Level 3.5, Magnesium Level 2.2, Alkaline Phosphatase 96, Aspartate Amino Transf (AST/SGOT) 89 H, Alanine Aminotransferase (ALT/SGPT) 355 H, Total Bilirubin 0.7 Last 24 hours Impressions Chest X-Ray 02/11/17 5268 Signed Impressions: Service Date/Time: Saturday, February 11, 2017 04:48 - CONCLUSION: Suboptimal inspiratory effort with left lower lobe airspace disease which may reflect atelectasis although developing pneumonia cannot be excluded given history. Formal PA and lateral views may be obtained for better evaluation as indicated. Dewayne Arcos MD Differential Diagnosis Endocarditis, abscess, sepsis..... Narrative Course Will check blood work, urinalysis, x-ray and have PA assisted with incision and drainage of axilla and dose with broad-spectrum coverage ED workup shows sepsis. Patient will need to be monitored in the hospital for further care. Sepsis Criteria SIRS Criteria (2 or more): Heart rate over 90, WBC > 41354, < 4000 or > 10% bands Sepsis Criteria (SIRS+source): Infect source susp/known Criteria Outcome: Meets sepsis criteria Physician Communication Physician Communication dr gonzalez agrees to admit Diagnosis Primary Impression: Sepsis Qualified Codes: A41.9 - Sepsis, unspecified organism Additional Impressions: Abscess of axilla, right IVDU (intravenous drug user) Admitting Information Admitting Physician Requests: Admit Ara Bullard MD Feb 11, 2017 04:28
[2017-02-11 04:38] LABS: AUTOMATED NEUTROPHIL # 15.7 TH/MM3 (1.8-7.7); BASOPHIL # 0.1 TH/MM3 (0-0.2); BASOPHIL % 0.6 % (0.0-2.0); EOSINOPHIL # 0.4 TH/MM3 (0-0.4); EOSINOPHIL % 1.9 % (0.0-4.0); HEMATOCRIT 39.6 % (39.0-51.0); HEMO FLAGS DIFF FINAL; LYMPH % 13.3 % (9.0-44.0); LYMPHOCYTE # 2.8 TH/MM3 (1.0-4.8); MEAN CELL VOLUME 84.1 FL (80.0-100.0); MEAN CORPUSCULAR HGB CONC 33.3 % (32.0-36.0); MONO % 8.7 % (0.0-8.0); NEUT % 75.5 % (16.0-70.0); PLATELET COUNT 212 TH/MM3 (150-450); RED BLOOD COUNT 4.71 MIL/MM3 (4.50-5.90); RED CELL DISTRIBUTION WIDTH 14.9 % (11.6-17.2); WHITE BLOOD COUNT 20.9 TH/MM3 (4.0-11.0)
[2017-02-11 04:52] LABS: APTT (PATIENT) 30.1 SEC (24.3-30.1); INTERNATIONAL NORMALIZED RATIO 1.1 RATIO
--- NOTE | 2017-02-11 04:56 | RADRPT ---
EXAM DATE/TIME: 02/11/2017 04:48 [facility] COMPARISON: CHEST SINGLE AP, September 30, 2015, 17:12. INDICATIONS : Fever. MEDICAL HISTORY : None. SURGICAL HISTORY : None. ENCOUNTER: Initial ACUITY: 1 day PAIN SCORE: Non-responsive. LOCATION: chest FINDINGS: Suboptimal inspiratory effort which accentuates the interstitial markings. There is mild airspace dis ease in the left lower lung zone. Cardiomediastinal contours are within normal limits. Bony thorax is intact. CONCLUSION: Suboptimal inspiratory effort with left lower lobe airspace disease which may reflect atelectasis alt aileen developing pneumonia cannot be excluded given history. Formal PA and lateral views may be obtai slava for better evaluation as indicated. Dewayne Arcos MD on February 11, 2017 at 4:53 Board Certified Radiologist. This report was verified electronically.
[2017-02-11 05:06] LABS: ALT (GPT) 355 U/L (12-78); ANION GAP 8 MEQ/L (5-15); AST (GOT) 89 U/L (15-37); BICARBONATE 25.6 MEQ/L (21.0-32.0); BLOOD UREA NITROGEN 21 MG/DL (7-18); CHLORIDE 101 MEQ/L (98-107); GLOMERULAR FILTRATION RATE 81 ML/MIN (>89); MAGNESIUM 2.2 MG/DL (1.5-2.5); POTASSIUM 3.9 MEQ/L (3.5-5.1); SODIUM (NA) 135 MEQ/L (136-145)
[2017-02-11 05:09] LABS: ALKALINE PHOSPHATASE 96 U/L (45-117); TOTAL BILIRUBIN ADULT 0.7 MG/DL (0.2-1.0)
[2017-02-11] MEDS ORDERED: SODIUM CHLORIDE 0.9% FLUSH 10 ML FLUSH IV FLUSH PRN (05:15)
[2017-02-11] MEDS ORDERED: BISACODYL 10 MG SUPP RECTAL PRN (05:15)
[2017-02-11] MEDS ORDERED: LACTULOSE SYRUP 20 GM/30 ML CUP PO PRN (05:15)
[2017-02-11] MEDS ORDERED: SENNOSIDES 8.6 MG TAB PO PRN (05:15)
[2017-02-11] MEDS ORDERED: MAGNESIUM HYDROXIDE SUSP 30 ML CUP PO PRN (05:15)
[2017-02-11] MEDS ORDERED: NALOXONE HCL 0.4 MG/ML AMP IV PRN (05:15)
[2017-02-11 05:16] LABS: BLOOD, URINE NEG (NEG); COMMENT (UR) CATH-CULT NOT IND; CULTURE IF INDICATED CATH CULTURE NOT IND; GLUCOSE,URINE NEG (NEG); KETONE, URINE NEG (NEG); MUCUS URINE FEW /lpf (OCC); NITRITE,URINE NEG (NEG); PH, URINE 5.5 (5.0-8.5); URINE COLOR YELLOW (YELLW/STRAW)
--- NOTE | 2017-02-11 05:49 | RADRPT ---
EXAM DATE/TIME: 02/11/2017 05:15 [facility] COMPARISON: CHEST SINGLE AP, February 11, 2017, 4:48. INDICATIONS : Evaluate for pnuemonia MEDICAL HISTORY : None. SURGICAL HISTORY : None. ENCOUNTER: Subsequent ACUITY: 1 day PAIN SCORE: Non-responsive. LOCATION: Bilateral chest FINDINGS: Patchy posterior left lower lobe airspace disease. Cardiomediastinal contours are within normal limit s. Bony thorax is intact. CONCLUSION: 1. Patchy posterior left lower lobe airspace disease concerning for pneumonia given clinical history. Dewayne Arcos MD on February 11, 2017 at 5:46 Board Certified Radiologist. This report was verified electronically.
--- NOTE | 2017-02-11 06:16 | PD ---
Physical Exam Time Seen by Provider: 06:15 Data Data Last Documented VS Vital Signs Date Time Temp Pulse Resp B/P (MAP) Pulse Ox O2 Delivery O2 Flow Rate FiO2 02/11/17 04:14 100.0 105 20 126/80 (95) 97 Room Air Orders Orders Electrocardiogram (02/11/17 04:18) Complete Blood Count With Diff (02/11/17 04:18) Comprehensive Metabolic Panel (02/11/17 04:18) Prothrombin Time / Inr (Pt) (02/11/17 04:18) Act Partial Throm Time (Ptt) (02/11/17 04:18) Lactic Acid Sepsis Protocol (02/11/17 04:18) Magnesium (Mg) (02/11/17 04:18) Phosphorus (Po4) (02/11/17 04:18) Urinalysis - C+S If Indicated (02/11/17 04:18) Blood Culture (02/11/17 04:18) Chest, Single Ap (02/11/17 04:18) Ecg Monitoring (02/11/17 04:18) Iv Access Insert/Monitor (02/11/17 04:18) Oximetry (02/11/17 04:18) Sodium Chlor 0.9% 1000 Ml Inj (Ns 1000 M (02/11/17 04:18) Sodium Chlor 0.9% 1000 Ml Inj (Ns 1000 M (02/11/17 04:18) Vancomycin Inj (Vancomycin Inj) (02/11/17 04:18) Cefepime Inj (Maxipime Inj) (02/11/17 04:18) Sodium Chlor 0.9% 1000 Ml Inj (Ns 1000 M (02/11/17 05:00) Chest, Pa & Lat (02/11/17 ) Admit To Inpatient (02/11/17 ) Vital Signs (Adult) Q4H (02/11/17 05:01) Activity Oob With Assistance (02/11/17 05:01) Information Technology Security Manager / Telemetry .CONTINUOUS (02/11/17 05:01) Diet Heart Healthy (02/11/17 Breakfast) Sodium Chloride 0.9% Flush (Ns Flush) (02/11/17 05:15) Sodium Chloride 0.9% Flush (Ns Flush) (02/11/17 09:00) Naloxone Inj (Narcan Inj) (02/11/17 05:15) Docusate Sodium-Senna (Rebekah-Colace) (02/11/17 09:00) Magnesium Hydroxide Liq (Milk Of Magnesi (02/11/17 05:15) Sennosides (Senokot) (02/11/17 05:15) Bisacodyl Supp (Dulcolax Supp) (02/11/17 05:15) Lactulose Liq (Lactulose Liq) (02/11/17 05:15) Inpatient Certification (02/11/17 ) Cefepime Inj (Maxipime Inj) (02/11/17 17:00) Admit Order (Ed Use Only) (02/11/17 05:41) Wound Culture And Gram Stain (02/11/17 05:41) Labs Laboratory Tests Test 02/11/17 04:20 02/11/17 04:25 Urine Color YELLOW Urine Turbidity CLEAR Urine pH 5.5 Urine Specific [place] 1.028 Urine Protein TRACE mg/dL Urine Glucose (UA) NEG mg/dL Urine Ketones NEG mg/dL Urine Occult Blood NEG Urine Nitrite NEG Urine Bilirubin NEG Urine Urobilinogen 2.0 MG/DL Urine Leukocyte Esterase NEG Urine WBC LESS THAN 1 /hpf Urine Mucus FEW /lpf Microscopic Urinalysis Comment CATH-CULT NOT IND White Blood Count 20.9 TH/MM3 Red Blood Count 4.71 MIL/MM3 Hemoglobin 13.2 GM/DL Hematocrit 39.6 % Mean Corpuscular Volume 84.1 FL Mean Corpuscular Hemoglobin 28.0 PG Mean Corpuscular Hemoglobin Concent 33.3 % Red Cell Distribution Width 14.9 % Platelet Count 212 TH/MM3 Mean Platelet Volume 8.5 FL Neutrophils (%) (Auto) 75.5 % Lymphocytes (%) (Auto) 13.3 % Monocytes (%) (Auto) 8.7 % Eosinophils (%) (Auto) 1.9 % Basophils (%) (Auto) 0.6 % Neutrophils # (Auto) 15.7 TH/MM3 Lymphocytes # (Auto) 2.8 TH/MM3 Monocytes # (Auto) 1.8 TH/MM3 Eosinophils # (Auto) 0.4 TH/MM3 Basophils # (Auto) 0.1 TH/MM3 CBC Comment DIFF FINAL Differential Comment Prothrombin Time 12.0 SEC Prothromb Time International Ratio 1.1 RATIO Activated Partial Thromboplast Time 30.1 SEC Blood Urea Nitrogen 21 MG/DL Creatinine 0.98 MG/DL Random Glucose 113 MG/DL Total Protein 7.5 GM/DL Albumin 3.3 GM/DL Calcium Level 8.7 MG/DL Phosphorus Level 3.5 MG/DL Magnesium Level 2.2 MG/DL Alkaline Phosphatase 96 U/L Aspartate Amino Transf (AST/SGOT) 89 U/L Alanine Aminotransferase (ALT/SGPT) 355 U/L Total Bilirubin 0.7 MG/DL Sodium Level 135 MEQ/L Potassium Level 3.9 MEQ/L Chloride Level 101 MEQ/L Carbon Dioxide Level 25.6 MEQ/L Anion Gap 8 MEQ/L Estimat Glomerular Filtration Rate 81 ML/MIN Lactic Acid Level 0.6 mmol/L MDM Medical Record Reviewed: Yes Supervised Visit with HEMANT: No Procedures Procedure Narrative INCISION AND DRAINAGE OF ABSCESS: The area was prepped and was sterilely draped. Topical ethyl chloride was used to anesthetize the area. The area was properly anesthetized. A number 11 scalpel was used to make a 1-cm incision across the area of the abscess. Cultures were obtained. The abscess was drained an irrigated with normal saline. Quarter inch iodoform packing was placed in the wound. Sterile dressing applied. Patient advised to have packing removed in two days. Diagnosis Primary Impression: Sepsis Qualified Codes: A41.9 - Sepsis, unspecified organism Additional Impressions: IVDU (intravenous drug user) Abscess of axilla, right Condition: Stable Eva Morris Feb 11, 2017 06:16
[2017-02-11] MEDS ORDERED: Vancomycin Consult Pharmacy 1 EA OTHER SCH (08:45)
--- NOTE | 2017-02-11 08:53 | HHI.HP ---
[facility] No Primary Care Physician Admission Diagnosis sepsis Diagnoses: (1) Elevated LFTs (2) Cellulitis (3) Sepsis (4) IVDU (intravenous drug user) (5) Abscess of axilla, right (6) Leukocytosis (7) Polysubstance abuse Chief Complaint: Arm swelling and pain Travel History International Travel<30 Days: No Contact w/Intl Traveler <30 Da: No Traveled to Known Affected Are: No Sepsis Criteria SIRS Criteria (2 or more): Heart rate over 90, WBC > 34845, < 4000 or > 10% bands Sepsis Criteria (SIRS+source): Infect source susp/known Criteria Outcome: Meets sepsis criteria History of Present Illness The patient is a 52-year-old male who presented to the emergency department with complaint of swelling and pain in both arms. He is somewhat drowsy and a poor historian. He states that his arms have been swelling for the past few days. He reports IV drug use and a history of opiate addiction. He was recently hospitalized for neck mass, infection. He states that he was not able to fill his prescriptions right away. Review of Systems Constitutional: DENIES: Fever, Chills, Night Sweats Eyes: DENIES: Blurred vision, Vision loss Ears, nose, mouth, throat: DENIES: Hearing loss Respiratory: DENIES: Cough, Wheezing, Sputum production, Shortness of breath Cardiovascular: DENIES: Chest pain, Palpitations, Dyspnea on Exertion, Lower Extremity Edema Gastrointestinal: DENIES: Abdominal pain, Constipation, Diarrhea, Nausea, Vomiting Genitourinary: DENIES: Urinary frequency, Urinary incontinence, Urgency, Hematuria, Dysuria, Nocturia Musculoskeletal: COMPLAINS OF: Joint pain, DENIES: Muscle aches Integumentary: DENIES: Pruritus, Rash Hematologic/lymphatic: DENIES: Bruising Neurologic: DENIES: Headache Past Family Social History Past Medical History IV drug abuse Past Surgical History Pilonidal cyst Reported Medications Amoxicillin 875 Mg Tab 875 Mg PO BID Hydrocodon-Acetamin 7.5-325/15 (Hydrocodone/Acetaminophen) 7.5 Mg-325 Mg/15 Ml ( 15 Ml) Solution 15 Ml PO Q6HR PRN Medrol Dosepak (Methylprednisolone) 4 Mg Dspk 4 Mg PO DIRECTED 7 Days Per Pharmacist direction Allergies: Coded Allergies: No Known Allergies (Verified , 02/11/17) Family History Cancer Social History Smokes one pack per day. Denies alcohol use. Admits to IV drug use (heroin, methamphetamine). Physical Exam Vital Signs Vital Signs Date Time Temp Pulse Resp B/P (MAP) Pulse Ox O2 Delivery O2 Flow Rate FiO2 02/11/17 08:05 02/11/17 06:33 67 16 125/66 (85) 96 Room Air 02/11/17 04:14 100.0 105 20 126/80 (95) 97 Room Air 02/11/17 04:13 103 20 97 Room Air 02/11/17 04:10 100.0 103 18 126/80 (95) 97 Physical Exam GENERAL: Well-nourished, well-developed male in no acute distress. HEENT: Normocephalic, atraumatic. Pupils equal, round and reactive. Extraocular movements intact. No scleral icterus. No injection or drainage. Oropharynx is clear. Mucous membranes are moist. CARDIOVASCULAR: Regular rate and rhythm without murmurs, gallops, or rubs. RESPIRATORY: Clear to auscultation. No wheezes, rales, or rhonchi. Breathing is non-labored. GASTROINTESTINAL: Abdomen soft, non-tender, nondistended. EXTREMITIES: No lower extremity edema. No calf tenderness. Right axillary abscess with packing in place. There are multiple areas of swelling and erythema on the right forearm. PSYCH: Drowsy, confused. Laboratory Laboratory Tests Test 02/11/17 04:20 02/11/17 04:25 Urine Color YELLOW Urine Turbidity CLEAR Urine pH 5.5 Urine Specific [place] 1.028 Urine Protein TRACE Urine Glucose (UA) NEG Urine Ketones NEG Urine Occult Blood NEG Urine Nitrite NEG Urine Bilirubin NEG Urine Urobilinogen 2.0 Urine Leukocyte Esterase NEG Urine WBC LESS THAN 1 Urine Mucus FEW Microscopic Urinalysis Comment CATH-CULT NOT IND White Blood Count 20.9 Red Blood Count 4.71 Hemoglobin 13.2 Hematocrit 39.6 Mean Corpuscular Volume 84.1 Mean Corpuscular Hemoglobin 28.0 Mean Corpuscular Hemoglobin Concent 33.3 Red Cell Distribution Width 14.9 Platelet Count 212 Mean Platelet Volume 8.5 Neutrophils (%) (Auto) 75.5 Lymphocytes (%) (Auto) 13.3 Monocytes (%) (Auto) 8.7 Eosinophils (%) (Auto) 1.9 Basophils (%) (Auto) 0.6 Neutrophils # (Auto) 15.7 Lymphocytes # (Auto) 2.8 Monocytes # (Auto) 1.8 Eosinophils # (Auto) 0.4 Basophils # (Auto) 0.1 CBC Comment DIFF FINAL Differential Comment Prothrombin Time 12.0 Prothromb Time International Ratio 1.1 Activated Partial Thromboplast Time 30.1 Blood Urea Nitrogen 21 Creatinine 0.98 Random Glucose 113 Total Protein 7.5 Albumin 3.3 Calcium Level 8.7 Phosphorus Level 3.5 Magnesium Level 2.2 Alkaline Phosphatase 96 Aspartate Amino Transf (AST/SGOT) 89 Alanine Aminotransferase (ALT/SGPT) 355 Total Bilirubin 0.7 Sodium Level 135 Potassium Level 3.9 Chloride Level 101 Carbon Dioxide Level 25.6 Anion Gap 8 Estimat Glomerular Filtration Rate 81 Lactic Acid Level 0.6 Date/Time Source Procedure Growth Status 02/11/17 04:25 Blood Peripheral Aerobic Blood Culture Pending Received 02/11/17 04:25 Blood Peripheral Anaerobic Blood Culture Pending Received 02/11/17 07:00 Wound Arm Gram Stain Pending Received 02/11/17 07:00 Wound Arm Wound Culture Pending Received Result Diagram: 02/11/175 02/11/17 0425 Imaging Last Impressions Chest X-Ray 02/11/17417 Signed Impressions: Service Date/Time: Saturday, February 11, 2017 04:48 - CONCLUSION: Suboptimal inspiratory effort with left lower lobe airspace disease which may reflect atelectasis although developing pneumonia cannot be excluded given history. Formal PA and lateral views may be obtained for better evaluation as indicated. Dewayne Arcos MD Caprini VTE Risk Assessment Caprini VTE Risk Assessment: Mod/High Risk (score >= 2) Caprini Risk Assessment Model Point Value = 1 Point Value = 2 Point Value = 3 Point Value = 5 Age 41-60 Minor surgery BMI > 25 kg/m2 Swollen legs Varicose veins or History of unexplained or recurrent spontaneous Oral contraceptives or hormone replacement Sepsis (< 1 month) Serious lung disease, including pneumonia (< 1 month) Abnormal pulmonary function Acute myocardial infarction Congestive heart failure (< 1 month) History of inflammatory bowel disease Medical patient at bed rest Age 61-74 Arthroscopic surgery Major open surgery (> 45 min) Laparoscopic surgery (> 45 min) Malignancy Confined to bed (> 72 hours) Immobilizing plaster cast Central venous access Age >= 75 History of VTE Family history of VTE Factor V Leiden Prothrombin [id number] Lupus anticoagulant Anticardiolipin antibodies Elevated serum homocysteine Heparin-induced thrombocytopenia Other congenital or acquired thrombophilia Stroke (< 1 month) Elective arthroplasty Hip, pelvis, or leg fracture Acute spinal cord injury (< 1 month) Prophylaxis Regimen Total Risk Factor Score Risk Level Prophylaxis Regimen 0-1 Low Early ambulation 2 Moderate Order ONE of the following: *Sequential Compression Device (SCD) *Heparin 5000 units SQ BID 3-4 Higher Order ONE of the following medications: *Heparin 5000 units SQ TID *Enoxaparin/Lovenox 40 mg SQ daily (WT < 150 kg, CrCl > 30 mL/min) *Enoxaparin/Lovenox 30 mg SQ daily (WT < 150 kg, CrCl > 10-29 mL/min) *Enoxaparin/Lovenox 30 mg SQ BID (WT < 150 kg, CrCl > 30 mL/min) AND/OR *Sequential Compression Device (SCD) 5 or more Highest Order ONE of the following medications: *Heparin 5000 units SQ TID (Preferred with Epidurals) *Enoxaparin/Lovenox 40 mg SQ daily (WT < 150 kg, CrCl > 30 mL/min) *Enoxaparin/Lovenox 30 mg SQ daily (WT < 150 kg, CrCl > 10-29 mL/min) *Enoxaparin/Lovenox 30 mg SQ BID (WT < 150 kg, CrCl > 30 mL/min) AND *Sequential Compression Device (SCD) Assessment and Plan Assessment and Plan 1. Sepsis: Secondary to cellulitis/abscess. Continue antibiotics. Consult infectious disease. Blood cultures are pending. 2. Oropharyngeal mass: Continue steroids, antibiotics. 3. Cellulitis/abscess, right upper extremity: Status post incision and drainage in the ER. Cultures pending. 4. Polysubstance abuse: Patient has been counseled. 5. DVT prophylaxis: Heparin. Problem Qualifiers (1) Sepsis: Qualified Codes: A41.9 - Sepsis, unspecified organism Torsten Huang MD Feb 11, 2017 08:53
[2017-02-11] MEDS ORDERED: KETOROLAC TROMETHAMINE 60 MG/2 ML (IM) VIAL IM PRN (09:00)
[2017-02-11] MEDS: SODIUM CHLORIDE 0.9% FLUSH 10 ML FLUSH IV FLUSH SCH ×2 (09:57→21:00)
[2017-02-11] MEDS: DOCUSATE SODIUM 50 MG/SENNA 8.6 MG TAB PO SCH ×2 (09:58→21:27)
[2017-02-11] MEDS: HEPARIN SODIUM - SQ 10,000 UNITS/ML VIAL SQ SCH ×2 (10:00→21:27)
--- NOTE | 2017-02-11 11:28 | EKG ---
Date Performed: 02/11/2017 Time Performed: 04:13:24 PTAGE: 52 years EKG: SINUS TACHYCARDIA LEFT AXIS DEVIATION ABNORMAL ECG NO PREVIOUS TRACING DOCTOR: Siva Edmonds Interpretating Date/Time 02/11/2017 11:27:05
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
[2017-02-11] MEDS: CEFEPIME INJ 1,000 MG in SODIUM CHLORIDE 0.9% INJ 100 ML IV SCH (17:00)
[2017-02-11] MEDS: VANCOMYCIN 1,500 MG/NS 500 ML IV SCH ×2 (17:00)
--- NOTE | 2017-02-11 19:35 | RADRPT ---
EXAM DATE/TIME: 02/11/2017 18:11 [facility] COMPARISON: No previous studies available for comparison. INDICATIONS : Right axilla swelling and pain. MEDICAL HISTORY : Gastroesophageal reflux disease. Dental problems. Sleep apnea. Joint pain. Attention deficit hype ractivity disorder. Substance abuse. Bipolar disorder. SURGICAL HISTORY : Cyst removal from tailbone. Right axillary incision and drainage. ENCOUNTER: Initial ACUITY: 1 day PAIN SCORE: 5/10 LOCATION: Right axilla. AREA EVALUATED: Right axilla. FINDINGS: No fluid collection identified the right axilla. There is increased vascularity and soft tissue edema . CONCLUSION: 1. Increased vascularity and soft tissue edema in the right axillary region without loculated or drai nable fluid collection. Steve Hammond MD on February 11, 2017 at 19:33 Board Certified Radiologist. This report was verified electronically.
--- NOTE | 2017-02-11 19:51 | RADRPT ---
EXAM DATE/TIME: 02/11/2017 19:32 [facility] COMPARISON: No previous studies available for comparison. INDICATIONS : Left hand pain, swelling and redness. No injury. MEDICAL HISTORY : Gastroesophageal reflux disease. Dental problems. Sleep apnea. Joint pain. SURGICAL HISTORY : Cyst removed from tailbone, Right axillary incision and drainage. ENCOUNTER: Initial ACUITY: 4 - 6 days PAIN SCORE: 10/10 LOCATION: Left hand, metacarpals FINDINGS: Three view examination of the left hand demonstrates no dislocation, or fracture. The carpal bones appear intact. The interphalangeal and metacarpophalangeal joints are intact. Bony mineralization i s normal. CONCLUSION: 1. Soft tissue swelling left hand. No acute bony abnormality identified. Steve Hammond MD on February 11, 2017 at 19:48 Board Certified Radiologist. This report was verified electronically.
--- NOTE | 2017-02-11 19:52 | RADRPT ---
EXAM DATE/TIME: 02/11/2017 19:34 [facility] COMPARISON: No previous studies available for comparison. INDICATIONS : Right hand pain, swelling and redness. No injury. MEDICAL HISTORY : Gastroesophageal reflux disease. Dental problems. Sleep apnea. Joint pain. SURGICAL HISTORY : Cyst removal from tailbone. Right axillary incision and drainage. ENCOUNTER: Initial ACUITY: 4 - 6 days PAIN SCORE: 10/10 LOCATION: Right hand, metacarpals FINDINGS: Three view examination of the right hand demonstrates no dislocation, or fracture. The carpal bones appear intact. The interphalangeal and metacarpophalangeal joints are intact. Bony mineralization is normal. CONCLUSION: 1. Soft tissue swelling right hand. No acute bony abnormality. Steve Hammond MD on February 11, 2017 at 19:50 Board Certified Radiologist. This report was verified electronically.
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
[2017-02-11] MEDS ORDERED: KETOROLAC TROMETHAMINE 30 MG/ML (IVP) VIAL IV PUSH ONE (21:30)
[2017-02-11] MEDS: FAMOTIDINE 20 MG TAB PO SCH ×2 (21:45→23:59)
[2017-02-12] VITALS (7 sets, daily range): BP systolic 100–131; BP diastolic 59–73; PULSE 74–85; RESP 18–20; TEMP 97.5–98.7; O2SAT 95–100
[2017-02-12] MEDS: VANCOMYCIN 1,500 MG/NS 500 ML IV SCH ×4 (05:09→17:43)
[2017-02-12] MEDS: CEFEPIME INJ 1,000 MG in SODIUM CHLORIDE 0.9% INJ 100 ML IV SCH ×2 (05:09→17:02)
[2017-02-12] MEDS: SODIUM CHLORIDE 0.9% FLUSH 10 ML FLUSH IV FLUSH SCH ×2 (09:00→21:00)
[2017-02-12] MEDS: DOCUSATE SODIUM 50 MG/SENNA 8.6 MG TAB PO SCH ×2 (09:00→21:00)
[2017-02-12] MEDS: HEPARIN SODIUM - SQ 10,000 UNITS/ML VIAL SQ SCH ×2 (09:38→21:00)
[2017-02-12 11:19] LABS: BASOPHIL % 0.3 % (0.0-2.0); EOSINOPHIL # 0.3 TH/MM3 (0-0.4); EOSINOPHIL % 2.4 % (0.0-4.0); HEMATOCRIT 36.6 % (39.0-51.0); HEMO FLAGS DIFF FINAL; LYMPH % 15.7 % (9.0-44.0); LYMPHOCYTE # 1.7 TH/MM3 (1.0-4.8); MEAN CELL VOLUME 84.7 FL (80.0-100.0); MEAN CORPUSCULAR HEMOGLOBIN 28.4 PG (27.0-34.0); MEAN CORPUSCULAR HGB CONC 33.5 % (32.0-36.0); MONO % 7.4 % (0.0-8.0); NEUT % 74.2 % (16.0-70.0); PLATELET COUNT 168 TH/MM3 (150-450); RED BLOOD COUNT 4.32 MIL/MM3 (4.50-5.90); RED CELL DISTRIBUTION WIDTH 15.2 % (11.6-17.2); WHITE BLOOD COUNT 10.8 TH/MM3 (4.0-11.0)
[2017-02-12 11:53] LABS: ALKALINE PHOSPHATASE 75 U/L (45-117); ALT (GPT) 215 U/L (12-78); ANION GAP 6 MEQ/L (5-15); AST (GOT) 47 U/L (15-37); BICARBONATE 25.1 MEQ/L (21.0-32.0); BLOOD UREA NITROGEN 10 MG/DL (7-18); CHLORIDE 103 MEQ/L (98-107); GLOMERULAR FILTRATION RATE 171 ML/MIN (>89); POTASSIUM 3.9 MEQ/L (3.5-5.1); SODIUM (NA) 134 MEQ/L (136-145); TOTAL BILIRUBIN ADULT 0.4 MG/DL (0.2-1.0)
[2017-02-12] MEDS ORDERED: LIDOCAINE HCL 2% 50 ML VIAL ONE (13:02)
--- NOTE | 2017-02-12 13:18 | HHI.PR ---
Subjective Remarks Follow up abscess. Patient going for surgery today. Complaining of significant pain in the forearms. Objective Vitals Vital Signs Date Time Temp Pulse Resp B/P (MAP) Pulse Ox O2 Delivery O2 Flow Rate FiO2 02/12/17 12:00 98.7 82 19 111/59 (76) 98 02/12/17 08:00 98.4 75 18 100/62 (75) 95 02/12/17 04:00 97.9 80 18 122/73 (89) 100 02/12/17 00:00 97.5 74 18 113/63 (80) 98 02/11/17 20:00 98.0 80 18 100/56 (71) 100 02/11/17 16:40 97.7 78 16 125/63 (83) 97 I/O 02/11/17 02/11/17 02/11/17 02/12/17 02/12/17 02/12/17 06:59 14:59 22:59 06:59 14:59 22:59 Intake Total 2250 ml 1100 ml 973 ml 240 ml Balance 2250 ml 1100 ml 973 ml 240 ml Intake Oral 358 ml 240 ml IV Total 2250 ml 1100 ml 615 ml # Voids 3 # Bowel Movements 1 Result Diagram: 02/12/17 1016 02/12/17 1016 Imaging Last Impressions Chest X-Ray 02/11/17 0418 Signed Impressions: Service Date/Time: Saturday, February 11, 2017 04:48 - CONCLUSION: Suboptimal inspiratory effort with left lower lobe airspace disease which may reflect atelectasis although developing pneumonia cannot be excluded given history. Formal PA and lateral views may be obtained for better evaluation as indicated. Dewayne Arcos MD Upper Extremity Ultrasound 02/11/17 0000 Signed Impressions: Service Date/Time: Saturday, February 11, 2017 18:11 - CONCLUSION: 1. Increased vascularity and soft tissue edema in the right axillary region without loculated or drainable fluid collection. Steve Hammond MD Hand X-Ray 02/11/17 0000 Signed Impressions: Service Date/Time: Saturday, February 11, 2017 19:34 - CONCLUSION: 1. Soft tissue swelling right hand. No acute bony abnormality. Steve Hammond MD Objective Remarks General: No acute distress. Heart: Regular rate and rhythm. No murmur. Lungs: Clear to auscultation bilaterally. No wheezes, rales, or rhonchi. Breathing is nonlabored. Abdomen: Soft, nontender, nondistended. Extremities: No lower extremity edema. Multiple areas of erythema and fluctuance on bilateral forearms. Right axilla abscess is smaller and there is less overlying erythema today. Continues to have small amount of pustular drainage. Psych: Alert and oriented. Procedures none Urinary Catheter: No Vascular Central Line Catheter: No A/P Problem List: (1) Elevated LFTs ICD Code: R79.89 - Other specified abnormal findings of blood chemistry (2) Cellulitis ICD Code: L03.90 - Cellulitis, unspecified (3) Sepsis ICD Code: A41.9 - Sepsis, unspecified organism Status: Acute (4) IVDU (intravenous drug user) ICD Code: F19.90 - Other psychoactive substance use, unspecified, uncomplicated Status: Acute (5) Abscess of axilla, right ICD Code: L02.411 - Cutaneous abscess of right axilla Status: Acute (6) Leukocytosis ICD Code: D72.829 - Elevated white blood cell count, unspecified Status: Acute (7) Polysubstance abuse ICD Code: F19.10 - Other psychoactive substance abuse, uncomplicated Status: Chronic Assessment and Plan 1. Sepsis: Secondary to cellulitis/abscess. Continue antibiotics. Appreciate infectious disease recommendations. Blood cultures are negative so far. 2. Oropharyngeal mass: Continue steroids, antibiotics. 3. Cellulitis/abscess, right upper extremity: Status post incision and drainage of right axilla abscess in the ER. Culture is growing MRSA. Appreciate general surgery recommendations. Hand surgery consulted for bilateral forearm abscesses. Going for surgery today. 4. Polysubstance abuse: Patient has been counseled. 5. DVT prophylaxis: Heparin. Problem Qualifiers (1) Sepsis: Qualified Codes: A41.9 - Sepsis, unspecified organism Torsten Huang MD Feb 12, 2017 13:18
[2017-02-12] MEDS ORDERED: HYDROmorphone HCL PF 2 MG/ML VIAL ONE (13:32)
[2017-02-12] MEDS ORDERED: NEOMYCIN/POLYMYXIN 1 ML G.U. IRRIGANT IRRIGATION ONE (14:10)
[2017-02-12] MEDS ORDERED: *morphine SULFATE 8 MG/ML PERIprocedure ONLY ONE (14:47)
[2017-02-12] MEDS ORDERED: PROPOFOL 200 MG/20 ML AMP IV ONE (14:48)
[2017-02-12] MEDS ORDERED: LACTATED RINGER'S 1000 ML INJ 1,000 ML IV ONE ×2 (14:48)
[2017-02-12] MEDS ORDERED: SUGAMMADEX SODIUM 200 MG/2 ML VIAL IV PUSH ONE ×2 (14:48)
[2017-02-12] MEDS ORDERED: DO NOT ADM ANY ANTICOAGULANT DRUGS PRN (15:30)
[2017-02-12] MEDS ORDERED: PHARMACY ORDERED LAB ONE (16:45)
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
[2017-02-12] MEDS: FAMOTIDINE 20 MG TAB PO SCH (21:00)
--- NOTE | 2017-02-12 21:54 | MP ---
cc: SENG BERMUDEZ DATE OF SURGERY 02/12/17 PREOPERATIVE DIAGNOSIS 1. Abscess right forearm 2. Abscess left hand. POSTOPERATIVE DIAGNOSIS 1. Abscess right forearm 2. Abscess left hand. PROCEDURE 1. Incision and drainage abscess right forearm 2. Incision and drainage abscess left hand. SURGEON Dr. Catie Bermudez ANESTHESIA General and local TOURNIQUET None SPECIMEN Cultures DRAINS Packing INDICATIONS FOR PROCEDURE Seferino Rojas is a 52-year-old right-hand dominant male with past medical history significant for IV drug use who states that he sustained lacerations or abrasions over the right forearm and left hand and subsequently developed abscesses. He wishes to proceed with surgical intervention. Risks were explained not limited to sepsis, wound complications and he elected to proceed with surgical intervention. PROCEDURE IN DETAIL The patient was identified in the preoperative holding area and the correct extremity was marked. The patient was taken to the operating room where anesthesia was induced. Bilateral upper extremities were prepped and draped in normal sterile fashion. No tourniquet was utilized as the patient had IV in the right proximal forearm. Both upper extremities were prepped and draped in normal sterile fashion. Attention was turned to the right forearm. Approximately 1 cm incision was made over the abscess with significant purulence which was sent for culture. There was no deep extension. The wound was irrigated with antibiotic saline and packing was placed as well as a soft dressing. Attention was then turned to the left hand where approximate 1 cm incision was made over the abscess of the dorsum of the left hand, again no significant deep extension. This was irrigated and packing was placed as well as a soft dressing. Approximately 15 mL of 2% lidocaine without epinephrine was used for local anesthesia over the area. The patient will remain in the hospital on IV antibiotics per infectious disease. MD JASIEL Wang/ /6:53 PM /9:37 PM [facility]
[2017-02-13] MEDS: CEFEPIME INJ 1,000 MG in SODIUM CHLORIDE 0.9% INJ 100 ML IV SCH (04:31)
[2017-02-13] MEDS: VANCOMYCIN 1,500 MG/NS 500 ML IV SCH ×2 (07:01)
[2017-02-13] MEDS: SODIUM CHLORIDE 0.9% FLUSH 10 ML FLUSH IV FLUSH SCH (09:00)
[2017-02-13] MEDS: DOCUSATE SODIUM 50 MG/SENNA 8.6 MG TAB PO SCH ×2 (09:00→20:15)
[2017-02-13] MEDS: HEPARIN SODIUM - SQ 10,000 UNITS/ML VIAL SQ SCH ×2 (09:00→20:15)
--- NOTE | 2017-02-13 13:52 | HHI.PR ---
Subjective Remarks Follow-up abscess, pain. Patient continues to report severe pain in both hands and forearms. Had incision and drainage done yesterday. He states that his current pain medication is not controlling the pain at all. Objective Vitals Vital Signs Date Time Temp Pulse Resp B/P (MAP) Pulse Ox O2 Delivery O2 Flow Rate FiO2 02/12/17 20:00 98.5 85 20 131/59 (83) 97 02/12/17 17:55 96 Nasal Cannula 2.00 02/12/17 16:00 98.1 80 19 123/70 (87) 96 02/12/17 15:00 97.9 71 13 173/74 (107) 99 Room Air 02/12/17 15:00 15 02/12/17 14:45 75 12 174/79 (110) 100 Nasal Cannula 2 02/12/17 14:39 97.8 74 12 179/78 (111) 100 Nasal Cannula 2 I/O 02/12/17 02/12/17 02/12/17 02/13/17 02/13/17 02/13/17 07:00 15:00 23:00 07:00 15:00 23:00 Intake Total 240 ml 550 ml 515 ml 100 ml Output Total 10 ml Balance 240 ml 540 ml 515 ml 100 ml Intake Oral 240 ml IV Total 50 ml 515 ml 100 ml Other 500 ml Output Estimated Blood Loss 10 ml # Voids 2 4 1 # Bowel Movements 0 Result Diagram: 02/12/17 1016 02/12/17 1016 Imaging Last Impressions Chest X-Ray 02/11/17 0418 Signed Impressions: Service Date/Time: Saturday, February 11, 2017 04:48 - CONCLUSION: Suboptimal inspiratory effort with left lower lobe airspace disease which may reflect atelectasis although developing pneumonia cannot be excluded given history. Formal PA and lateral views may be obtained for better evaluation as indicated. Dewayne Arcos MD Upper Extremity Ultrasound 02/11/17 0000 Signed Impressions: Service Date/Time: Saturday, February 11, 2017 18:11 - CONCLUSION: 1. Increased vascularity and soft tissue edema in the right axillary region without loculated or drainable fluid collection. Steve Hammond MD Hand X-Ray 02/11/17 0000 Signed Impressions: Service Date/Time: Saturday, February 11, 2017 19:34 - CONCLUSION: 1. Soft tissue swelling right hand. No acute bony abnormality. Steve Hammond MD Objective Remarks General: No acute distress. Heart: Regular rate and rhythm. No murmur. Lungs: Clear to auscultation bilaterally. No wheezes, rales, or rhonchi. Breathing is nonlabored. Abdomen: Soft, nontender, nondistended. Extremities: No lower extremity edema. Bilateral forearms/wrists bandaged. Psych: Alert, answers questions appropriately. Procedures 02/12/17 incision and drainage abscess right forearm, incision and drainage abscess left hand Urinary Catheter: No Vascular Central Line Catheter: No A/P Problem List: (1) Elevated LFTs ICD Code: R79.89 - Other specified abnormal findings of blood chemistry (2) Cellulitis ICD Code: L03.90 - Cellulitis, unspecified (3) Sepsis ICD Code: A41.9 - Sepsis, unspecified organism Status: Acute (4) IVDU (intravenous drug user) ICD Code: F19.90 - Other psychoactive substance use, unspecified, uncomplicated Status: Acute (5) Abscess of axilla, right ICD Code: L02.411 - Cutaneous abscess of right axilla Status: Acute (6) Leukocytosis ICD Code: D72.829 - Elevated white blood cell count, unspecified Status: Acute (7) Polysubstance abuse ICD Code: F19.10 - Other psychoactive substance abuse, uncomplicated Status: Chronic Assessment and Plan 1. Sepsis: Secondary to cellulitis/abscess. Continue antibiotics. Appreciate infectious disease recommendations. Blood cultures are negative so far. 2. Oropharyngeal mass: Continue steroids, antibiotics. 3. Cellulitis/abscess, right upper extremity: Status post incision and drainage of right axilla abscess in the ER. Culture is growing MRSA. Appreciate general surgery recommendations. Hand surgery consulted for bilateral forearm abscesses. Status post incision and drainage. 4. Polysubstance abuse: Patient has been counseled. 5. Elevated LFTs: Trending down. Monitor labs. Hepatitis panel pending 6. DVT prophylaxis: Heparin. Problem Qualifiers (1) Sepsis: Qualified Codes: A41.9 - Sepsis, unspecified organism Torsten Huang MD Feb 13, 2017 13:52
[2017-02-13] MEDS: HYDROmorphone HCL PF 1 MG/ML VIAL IV PUSH PRN ×2 (15:37→20:17)
[2017-02-13] MEDS: VANCOMYCIN INJ 1,750 MG in SODIUM CHLORID 0.9% 500 ML INJ 500 ML IV SCH (17:31)
[2017-02-13 20:00] VITALS: BP 112/68; PULSE 84; RESP 20; TEMP 98.4; O2SAT 98
[2017-02-13] MEDS: FAMOTIDINE 20 MG TAB PO SCH (20:15)
[2017-02-14] VITALS: BP 111/64; PULSE 79; RESP 20; TEMP 98.3; O2SAT 96
[2017-02-14] MEDS: HYDROmorphone HCL PF 1 MG/ML VIAL IV PUSH PRN ×4 (00:27→15:24)
[2017-02-14 04:00] VITALS: BP 102/56; PULSE 75; RESP 20; TEMP 97.7; O2SAT 97
[2017-02-14] MEDS: VANCOMYCIN INJ 1,750 MG in SODIUM CHLORID 0.9% 500 ML INJ 500 ML IV SCH (06:09)
[2017-02-14 08:00] VITALS: BP 119/72; PULSE 72; PULSE 73; RESP 19; TEMP 98; O2SAT 95
[2017-02-14] MEDS: DOCUSATE SODIUM 50 MG/SENNA 8.6 MG TAB PO SCH (08:24)
[2017-02-14] MEDS: HEPARIN SODIUM - SQ 10,000 UNITS/ML VIAL SQ SCH (08:24)
[2017-02-14] MEDS: SODIUM CHLORIDE 0.9% FLUSH 10 ML FLUSH IV FLUSH SCH ×2 (08:25)
[2017-02-14 08:34] LABS: AUTOMATED NEUTROPHIL # 5.1 TH/MM3 (1.8-7.7); BASOPHIL # 0.1 TH/MM3 (0-0.2); BASOPHIL % 0.8 % (0.0-2.0); EOSINOPHIL # 0.3 TH/MM3 (0-0.4); HEMATOCRIT 40.7 % (39.0-51.0); HEMO FLAGS DIFF FINAL; LYMPH % 25.1 % (9.0-44.0); MEAN CELL VOLUME 84.7 FL (80.0-100.0); MEAN CORPUSCULAR HEMOGLOBIN 28.2 PG (27.0-34.0); MEAN CORPUSCULAR HGB CONC 33.2 % (32.0-36.0); MONO % 7.5 % (0.0-8.0); NEUT % 62.6 % (16.0-70.0); PLATELET COUNT 234 TH/MM3 (150-450); RED CELL DISTRIBUTION WIDTH 15.1 % (11.6-17.2); WHITE BLOOD COUNT 8.2 TH/MM3 (4.0-11.0)
[2017-02-14 09:00] LABS: ALKALINE PHOSPHATASE 91 U/L (45-117); ALT (GPT) 136 U/L (12-78); ANION GAP 7 MEQ/L (5-15); AST (GOT) 29 U/L (15-37); BICARBONATE 29.2 MEQ/L (21.0-32.0); BLOOD UREA NITROGEN 15 MG/DL (7-18); CHLORIDE 101 MEQ/L (98-107); GLOMERULAR FILTRATION RATE 123 ML/MIN (>89); SODIUM (NA) 137 MEQ/L (136-145); TOTAL BILIRUBIN ADULT 0.2 MG/DL (0.2-1.0)
[2017-02-14 12:00] VITALS: BP 129/78; PULSE 96; RESP 19; TEMP 98.7; O2SAT 96
[2017-02-14] MEDS ORDERED: BACT800T5 PO (13:38)
[2017-02-14] MEDS ORDERED: PERC7.5T13 PO (13:38)
--- NOTE | 2017-02-14 13:38 | HHI.DCPOC ---
Discharge Care Plan Diagnosis: (1) Elevated LFTs (2) Leukocytosis (3) Cellulitis (4) Abscess of axilla, right (5) Polysubstance abuse Goals to Promote Your Health * To prevent worsening of your condition and complications * To maintain your health at the optimal level Directions to Meet Your Goals Take your medications as prescribed Follow your dietary instruction Follow activity as directed Keep your appointments as scheduled Take your immunizations and boosters as scheduled If your symptoms worsen call your PCP, if no PCP go to Urgent Care Center or Emergency Room Smoking is Dangerous to Your Health. Avoid second hand smoke Call the 24-hour hour crisis hotline for domestic abuse at Torsten Huang MD Feb 14, 2017 13:38
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
--- NOTE | 2017-02-14 15:16 | PD.ORT.PN ---
Subjective Subjective Remarks Patient reports improved pain R forearm and L hand. Denies paresthesias. Is requesting to go home soon.. Objective Vitals Vital Signs Date Time Temp Pulse Resp B/P (MAP) Pulse Ox O2 Delivery O2 Flow Rate FiO2 02/14/17 12:00 98.7 96 19 129/78 (95) 96 02/14/17 08:00 98.0 72 19 119/72 (88) 95 02/14/17 06:55 14 02/14/17 04:00 97.7 75 20 102/56 (71) 97 02/14/17 01:30 14 02/14/17 00:00 98.3 79 20 111/64 (80) 96 02/13/17 20:00 98.4 84 20 112/68 (83) 98 I/O 02/13/17 02/13/17 02/13/17 02/14/17 02/14/17 02/14/17 07:00 15:00 23:00 07:00 15:00 23:00 Intake Total 100 ml 920 ml Output Total 100 ml Balance 100 ml -100 ml 920 ml Intake Oral 920 ml IV Total 100 ml Output Urine Total 100 ml # Voids 1 2 5 # Bowel Movements 1 Result Diagram: 02/14/1771102/14/17 0712 Objective Remarks Packing removed bilateral hands, no persistent purulence, erythema over both wounds, compartments soft and compressible, sitlt m/u/r, 2+ radial pulse, near full flexion/extension fingers Assessment & Plan Assessment and Plan 52yM pmhx IVDU presents with abscess R axilla and bilateral hands POD2 s/p I&D abscess R forearm and L hand --Packing removed and dressings changed, continue daily dressing changes -Ab per ID -Elevate hands and gentle ROM -Followup next week Janel Bermudez MD Feb 14, 2017 15:16
--- NOTE | 2017-02-14 18:17 | HHI.IDPN ---
Subjective Subjective Remarks I D x cover chart reviewed Mr. Rojas is a 52-year-old male who presented to the emergency department with complaint of swelling and pain in both arms. sp I+ D bopth hands was on vancomycin Antibiotics vanco Allergies: Coded Allergies: No Known Allergies (Verified , 02/11/17) Objective . Vital Signs Date Time Temp Pulse Resp B/P (MAP) Pulse Ox O2 Delivery O2 Flow Rate FiO2 02/14/17 12:00 98.7 96 19 129/78 (95) 96 02/14/17 08:00 98.0 72 19 119/72 (88) 95 02/14/17 06:55 14 02/14/17 04:00 97.7 75 20 102/56 (71) 97 02/14/17 01:30 14 02/14/17 00:00 98.3 79 20 111/64 (80) 96 02/13/17 20:00 98.4 84 20 112/68 (83) 98 02/14/17 02/14/17 02/15/17 15:00 23:00 07:00 Intake Total 920 ml Balance 920 ml Intake Oral 920 ml # Voids 5 # Bowel Movements 1 . Laboratory Tests Test 02/14/17 07:12 White Blood Count 8.2 TH/MM3 Red Blood Count 4.80 MIL/MM3 Hemoglobin 13.5 GM/DL Hematocrit 40.7 % Mean Corpuscular Volume 84.7 FL Mean Corpuscular Hemoglobin 28.2 PG Mean Corpuscular Hemoglobin Concent 33.2 % Red Cell Distribution Width 15.1 % Platelet Count 234 TH/MM3 Mean Platelet Volume 9.1 FL Neutrophils (%) (Auto) 62.6 % Lymphocytes (%) (Auto) 25.1 % Monocytes (%) (Auto) 7.5 % Eosinophils (%) (Auto) 4.0 % Basophils (%) (Auto) 0.8 % Neutrophils # (Auto) 5.1 TH/MM3 Lymphocytes # (Auto) 2.0 TH/MM3 Monocytes # (Auto) 0.6 TH/MM3 Eosinophils # (Auto) 0.3 TH/MM3 Basophils # (Auto) 0.1 TH/MM3 CBC Comment DIFF FINAL Differential Comment Laboratory Tests Test 02/14/17 07:12 Blood Urea Nitrogen 15 MG/DL Creatinine 0.68 MG/DL Random Glucose 104 MG/DL Total Protein 7.1 GM/DL Albumin 2.7 GM/DL Calcium Level 9.3 MG/DL Alkaline Phosphatase 91 U/L Aspartate Amino Transf (AST/SGOT) 29 U/L Alanine Aminotransferase (ALT/SGPT) 136 U/L Total Bilirubin 0.2 MG/DL Sodium Level 137 MEQ/L Potassium Level 4.0 MEQ/L Chloride Level 101 MEQ/L Carbon Dioxide Level 29.2 MEQ/L Anion Gap 7 MEQ/L Estimat Glomerular Filtration Rate 123 ML/MIN Microbiology Date/Time Source Procedure Growth Status 02/12/17 14:12 Wound Hand Gram Stain - Final Resulted 02/12/17 14:12 Wound Culture - Preliminary S. Aureus Mrsa Resulted 02/12/17 14:11 Wound Hand Gram Stain - Final Complete 02/12/17 14:11 Wound Culture - Final S. Aureus Mrsa Complete Physical Exam GENERAL: NAD SKIN: Warm and dry.nNo rash MUSCULOSKELETAL: both hands with dressing inplace, no drainage noted No edema ertyema NEURO: awake alert ambulating Assessment & Plan Remarks Sepsis present on admission Bilateral hand dorsum abscess/cellulitis, MRSA sp I+D Right axillary abscess s/p I&D MRSA IVDA Abnormal LFTs: sepsis, Hep C to be ruled out Recs OK to dc home On po abx (po bactrim) Genie Oshea MD Feb 14, 2017 18:17
[2017-02-15] MEDS ORDERED: PHARMACY ORDERED LAB ONE (04:45)
== END 2017-02-14 18:14 | disposition home or self-care (01) | DRG 872 ==
LOC: NEPC 04:07 → NEDA 05:42 → N05A 08:07
PROVIDERS: ADMIT Family Medicine; ATTEND Family Medicine
PROC: 0H9BXZZ Drainage of Right Upper Arm Skin, External Approach (ICD-10-PCS; principal; 2017-02-11)
PROC: 0H9GXZX Drainage of Left Hand Skin, External Approach, Diagnostic (ICD-10-PCS; 2017-02-12)
PROC: 0H9DXZX Drainage of Right Lower Arm Skin, External Approach, Diagnostic (ICD-10-PCS; 2017-02-12)
DX: A41.9 Sepsis, unspecified organism (principal); F11.10 Opioid abuse, uncomplicated; L02.411 Cutaneous abscess of right axilla; L02.512 Cutaneous abscess of left hand; L02.413 Cutaneous abscess of right upper limb; L02.511 Cutaneous abscess of right hand; L03.111 Cellulitis of right axilla; L03.114 Cellulitis of left upper limb; L03.113 Cellulitis of right upper limb; F17.210 Nicotine dependence, cigarettes, uncomplicated; K21.9 Gastro-esophageal reflux disease without esophagitis; F15.10 Other stimulant abuse, uncomplicated; I83.90 Asymptomatic varicose veins of unspecified lower extremity; B95.62 Methicillin resistant Staphylococcus aureus infection as the cause of diseases classified elsewhere
CPT/HCPCS: 10061; 71010; 71020; 73130; 76882; 80053; 80074; 80202; 81001; 83605; 83735; 84100; 85025; 85610; 85652; 85730; 86140; 86403; 87040; 87070; 87147; 87186; 87205; 93005; 96365; J0692; J1170; J1644; J1885; J2270; J3010; J3370; J7030; J7040; J7050; J7120

== ENCOUNTER 2017-04-10 13:34 | Inpatient (IN) | payer SELFPAY ==
[~2017-04-10] VITALS: Ht 182.9 cm; Wt 86.5 kg
[~2017-04-10 13:34] MED LIST changes: -AMOX500T PO; -AMOX875T PO; +BACT800T5 PO; -HYDR1SOL6 PO; -MEDR4PAK PO; +PERC7.5T13 PO
[2017-04-10 13:36] VITALS: BP 138/78; PULSE 109; RESP 16; TEMP 97.8; O2SAT 99
[2017-04-10 15:06] VITALS: BP 122/62; PULSE 99; RESP 21; TEMP 98.1; O2SAT 98
--- NOTE | 2017-04-10 15:26 | PD ---
HPI Chief Complaint: ENT Complaint Time Seen by Provider: 14:50 Travel History International Travel<30 days: No Contact w/Intl Traveler<30days: No Traveled to known affect area: No History of Present Illness HPI 52-year-old male with a history of oropharyngeal mass presents to the emergency room with complaints of the same. Patient was admitted to the hospital for mass 3 months ago. He was given IV steroids and antibiotics and the mass shrank in size. ENT and oncology were consulted and patient had ultrasound guided biopsy. States the first biopsy was negative. He was supposed to follow up with ENT and oncology after discharge but never did. Patient is homeless. He states he was doing well after discharge until a few days ago when it seemed to increase in size and become more painful. States he began having a hard time eating and drinking. Patient attributes worsening symptoms to the cold weather. States he was able to force some crackers and coffee down his throat this morning but it is uncomfortable. Denies fever, chills, nausea, and vomiting. He has history of illicit drug use but states he hasn't used in one year (contradictory to EMR). Denies any chronic medical conditions. Denies taking any daily medications. PFSH Past Medical History ADHD: Yes Arthritis: No Asthma: No Blood Disorders: No Bipolar Disorder: Yes Anxiety: No Depression: No Heart Rhythm Problems: No Cancer: No Cardiovascular Problems: No High Cholesterol: No Chemotherapy: No Chest Pain: No Congestive Heart Failure: No COPD: No Cerebrovascular Accident: No Diabetes: No Diminished Hearing: No Endocrine: No GERD: Yes Genitourinary: Yes Hiatal Hernia: No Immune Disorder: No Implanted Vascular Access Dvce: No Musculoskeletal: No Neurologic: No Psychiatric: No Reproductive: No Respiratory: No Immunizations Current: No Migraines: No Radiation Therapy: No Renal Failure: No Seizures: No Sickle Cell Disease: No Sleep Apnea: Yes Thyroid Disease: No Ulcer: No ?: Not Past Surgical History Abdominal Surgery: No AICD: No Arteriovenous Shunt: No Cardiac Surgery: No Ear Surgery: No Endocrine Surgery: No Eye Surgery: No Genitourinary Surgery: No Gynecologic Surgery: No Insulin Pump: No Joint Replacement: No Neurologic Surgery: No Oral Surgery: No Pacemaker: No Thoracic Surgery: No Other Surgery: Yes (cyst removal tailbone) Social History Alcohol Use: No Tobacco Use: Yes (pack a day ) Substance Use: No Allergies-Medications (Allergen,Severity, Reaction): Coded Allergies: No Known Allergies (Verified Adverse Reaction, Unknown, 04/10/17) Reported Meds & Prescriptions Reported Meds & Active Scripts Active Review of Systems Except as stated in HPI: all other systems reviewed are Neg Physical Exam Narrative GENERAL: Well-nourished, unkempt male in no acute distress. Afebrile. Ambulatory. SKIN: Focused skin assessment warm/dry. HEAD: Normocephalic. EYES: No scleral icterus. No injection or drainage. ENT: Mucosa pink and moist. There is a large mass in the oropharynx with mild erythema without obvious exudates. No uvular edema. No uvular, palatal, or tonsillar deviation. Airway patent. NECK: Supple, trachea midline. No JVD or lymphadenopathy. CARDIOVASCULAR: Regular rate and rhythm without murmurs, gallops, or rubs. RESPIRATORY: Breath sounds equal bilaterally. No accessory muscle use. Data Data Last Documented VS Vital Signs Date Time Temp Pulse Resp B/P (MAP) Pulse Ox O2 Delivery O2 Flow Rate FiO2 04/10/17 17:51 17 04/10/17 15:06 98.1 99 122/62 (82) 98 Room Air Orders Orders Basic Metabolic Panel (Bmp) (04/10/17 15:17) Complete Blood Count With Diff (04/10/17 15:17) Group A Rapid Strep Screen (04/10/17 15:17) Iv Access Insert/Monitor (04/10/17 15:17) Sodium Chloride 0.9% Flush (Ns Flush) (04/10/17 15:30) Ampicillin-Sulbactam Inj (Unasyn Inj) (04/10/17 15:30) Ct Soft Tiss Neck W Iv Cont (04/10/17 ) Dexamethasone Inj (Decadron Inj) (04/10/17 16:15) Ketorolac Inj (Toradol Inj) (04/10/17 16:15) Strep Culture (Group A) (04/10/17 15:30) Sodium Chlor 0.9% 1000 Ml Inj (Ns 1000 M (04/10/17 17:15) Iohexol 350 Inj (Omnipaque 350 Inj) (04/10/17 17:38) Labs Laboratory Tests Test 04/10/17 15:30 White Blood Count 17.9 TH/MM3 Red Blood Count 5.23 MIL/MM3 Hemoglobin 14.4 GM/DL Hematocrit 42.9 % Mean Corpuscular Volume 82.1 FL Mean Corpuscular Hemoglobin 27.5 PG Mean Corpuscular Hemoglobin Concent 33.5 % Red Cell Distribution Width 14.6 % Platelet Count 292 TH/MM3 Mean Platelet Volume 8.8 FL Neutrophils (%) (Auto) 81.6 % Lymphocytes (%) (Auto) 11.2 % Monocytes (%) (Auto) 6.3 % Eosinophils (%) (Auto) 0.6 % Basophils (%) (Auto) 0.3 % Neutrophils # (Auto) 14.6 TH/MM3 Lymphocytes # (Auto) 2.0 TH/MM3 Monocytes # (Auto) 1.1 TH/MM3 Eosinophils # (Auto) 0.1 TH/MM3 Basophils # (Auto) 0.1 TH/MM3 CBC Comment DIFF FINAL Differential Comment Blood Urea Nitrogen 11 MG/DL Creatinine 0.73 MG/DL Random Glucose 75 MG/DL Calcium Level 9.3 MG/DL Sodium Level 132 MEQ/L Potassium Level 3.7 MEQ/L Chloride Level 95 MEQ/L Carbon Dioxide Level 27.9 MEQ/L Anion Gap 9 MEQ/L Estimat Glomerular Filtration Rate 113 ML/MIN MDM Medical Decision Making Medical Screen Exam Complete: Yes Emergency Medical Condition: Yes Medical Record Reviewed: Yes Differential Diagnosis Oropharyngeal mass, sepsis, cellulitis, abscess, cancer Narrative Course 52-year-old male with a history of oropharyngeal mass presents to the emergency room for evaluation of the same. States he was discharged from the hospital a few months ago and was doing well, states the mass is completely gone, until a few days ago. At that time, he had acute worsening of pain and difficulty swallowing. Physical exam reveals a large mass of the oropharynx is mildly erythematous without obvious exudates. Airways patent with about a ivon-sized hole. He does meet sepsis criteria with persistent tachycardia in the 100s and leukocytosis of 17,000. CBC and BMP are otherwise unremarkable. CT of the soft tissue with IV contrast shows decrease in size and edema of the left tonsillar mass but persistent mass effect on the airway. Given acute worsening of symptoms, I suspect infection. I spoke to the ENT physician on-call, Dr. Arthur, who is happy to consult. He states general surgery manages trachs and GI can place a PEG tube if necessary. At this time, I do not feel it is necessary for patient to have a trach or PEG tube. He is handling secretions well and breathing without assistance or difficulty. I spoke to Dr. Vega who agrees to admit this patient to her service for sepsis. Sepsis Criteria SIRS Criteria (2 or more): Heart rate over 90, WBC > 11679, < 4000 or > 10% bands Sepsis Criteria (SIRS+source): Infect source susp/known Physician Communication Physician Communication I spoke to Dr. Vega who agrees to admit this patient to her service. Diagnosis Primary Impression: Sepsis Qualified Codes: A41.9 - Sepsis, unspecified organism Additional Impression: Oropharyngeal mass Admitting Information Admitting Physician Requests: Admit Scripts No Active Prescriptions or Reported Meds Condition: Tish Zamorano Apr 10, 2017 15:26
[2017-04-10] MEDS ORDERED: DEXAMETHASONE SOD PHOS 4 MG/ML VIAL IM ONE ×2 (15:30)
[2017-04-10] MEDS ORDERED: SODIUM CHLORIDE 0.9% FLUSH 10 ML FLUSH IVF PRN ×2 (15:30)
[2017-04-10] MEDS ORDERED: AMPICILLIN-SULBACTAM INJ 3 GM in SODIUM CHLORIDE 0.9% INJ 100 ML IV ONE ×4 (15:30)
[2017-04-10] MEDS ORDERED: DEXAMETHASONE SOD PHOS 20 MG/5 ML VIAL IV PUSH ONE ×2 (16:15)
[2017-04-10] MEDS ORDERED: KETOROLAC TROMETHAMINE 30 MG/ML (IVP) VIAL IV PUSH ONE ×2 (16:15)
[2017-04-10 16:23] LABS: AUTOMATED NEUTROPHIL # 14.6 TH/MM3 (1.8-7.7); BASOPHIL # 0.1 TH/MM3 (0-0.2); BASOPHIL % 0.3 % (0.0-2.0); EOSINOPHIL # 0.1 TH/MM3 (0-0.4); EOSINOPHIL % 0.6 % (0.0-4.0); HEMATOCRIT 42.9 % (39.0-51.0); HEMOGLOBIN 14.4 GM/DL (13.0-17.0); LYMPH % 11.2 % (9.0-44.0); MEAN CELL VOLUME 82.1 FL (80.0-100.0); MEAN CORPUSCULAR HEMOGLOBIN 27.5 PG (27.0-34.0); MEAN CORPUSCULAR HGB CONC 33.5 % (32.0-36.0); MEAN PLATELET VOLUME 8.8 FL (7.0-11.0); MONO % 6.3 % (0.0-8.0); MONOCYTE # 1.1 TH/MM3 (0-0.9); NEUT % 81.6 % (16.0-70.0); PLATELET COUNT 292 TH/MM3 (150-450); RED BLOOD COUNT 5.23 MIL/MM3 (4.50-5.90); RED CELL DISTRIBUTION WIDTH 14.6 % (11.6-17.2); WHITE BLOOD COUNT 17.9 TH/MM3 (4.0-11.0)
[2017-04-10 17:01] LABS: BICARBONATE 27.9 MEQ/L (21.0-32.0); CALCIUM 9.3 MG/DL (8.5-10.1); CREATININE 0.73 MG/DL (0.60-1.30)
[2017-04-10] MEDS ORDERED: SODIUM CHLOR 0.9% 1000 ML INJ 1,000 ML IV ONE ×2 (17:15)
[2017-04-10] MEDS ORDERED: IOHEXOL 350 MG/ML 10 ML VIAL (for RAD DIAG) IVCONTRAST ONE ×2 (17:38)
--- NOTE | 2017-04-10 17:44 | RADRPT ---
EXAM DATE/TIME: 04/10/2017 17:17 [facility] COMPARISON: CT SOFT TISSUE NECK W CONTRAST, January 31, 2017, 20:41. INDICATIONS : Throat swelling X 3 days. IV CONTRAST: 62 cc Omnipaque 350 (iohexol) IV RADIATION DOSE: 14.1 CTDIvol (mGy) MEDICAL HISTORY : Gastroesophageal reflux disease. MRSA SURGICAL HISTORY : None. ENCOUNTER: Initial ACUITY: 3 days PAIN SCALE: 5/10 LOCATION: neck TECHNIQUE: Volumetric scanning of the neck was performed. Using automated exposure control and adjustment of th e mA and/or kV according to patient size, radiation dose was kept as low as reasonably achievable to obtain optimal diagnostic quality images. DICOM format image data is available electronically for r eview and comparison. FINDINGS: Reidentified is a large soft tissue mass with central decreased attenuation involving the left tonsil lar pillar extending anteriorly to the oropharynx with abnormal enlargement and infiltration of the u vula, extending inferiorly to and abutting the epiglottis which is slightly thickened on the left. Th e vocal cords, thyroid are unremarkable. The left appear form sinus is obliterated. There is mass eff ect on the oropharynx deviated to the right. Since the previous study the mass is decreased in size m easuring 3 x 3.1 cm in AP transverse dimension on image 47, previously 4 x 4.4 cm. The right tonsilla r pillar is within normal limits. There are sub-centimeters short axis lymph nodes at the level of th e hyoid. Directly posterior to the left submandibular gland is a prominent node measuring 1.6 cm in s hort axis dimension and this is decreased in size from the previous study. There is mild induration o f the subcutaneous fat in this region. 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 Lung apices are clear. Osseous structures are intact. There is mild mucosal thicke betty left maxillary sinus. CONCLUSION: 1. Decrease in size of left tonsillar mass and edema however mass effect remains on the airway. Osmar Prince MD on April 10, 2017 at 17:37 Board Certified Radiologist. This report was verified electronically.
[2017-04-10] MEDS ORDERED: LACTULOSE SYRUP 20 GM/30 ML CUP PO PRN ×2 (19:00)
[2017-04-10] MEDS ORDERED: SENNOSIDES 8.6 MG TAB PO PRN ×2 (19:00)
[2017-04-10] MEDS ORDERED: MAGNESIUM HYDROXIDE SUSP 30 ML CUP PO PRN ×2 (19:00)
[2017-04-10] MEDS ORDERED: SODIUM CHLORIDE 0.9% FLUSH 10 ML FLUSH IV FLUSH PRN ×2 (19:00)
[2017-04-10] MEDS ORDERED: BISACODYL 10 MG SUPP RECTAL PRN ×2 (19:00)
[2017-04-10] MEDS ORDERED: NALOXONE HCL 0.4 MG/ML AMP IV PUSH PRN ×2 (19:00)
[2017-04-10] MEDS ORDERED: ACETAMINOPHEN 325 MG TAB PO PRN ×2 (19:00)
[2017-04-10] MEDS ORDERED: ONDANSETRON HCL 4 MG/2 ML VIAL IVP PRN ×2 (19:00)
[2017-04-10 19:20] VITALS: BP 124/72; PULSE 92; RESP 16; TEMP 98.5; O2SAT 95
--- NOTE | 2017-04-10 19:36 | PD ---
Physical Exam Date Seen by Provider: Apr 10, 2017 Time Seen by Provider: 17:30 Narrative I, Dr. Malcolm, have reviewed the advance practice practitioner's documentation and am in agreement, met with the patient face to face, made the diagnosis, and the medical decision making was done by me. *My assessment and Findings: Patient seen and evaluated with PA, please see PA note for further details. Patient is here because of dysphagia, history of neck mass diagnosed in January, has not yet followed up with ENT. Considering history, patient was given Solu-Medrol IV and medication for discomfort. Laboratory Tests Test 04/10/17 15:30 White Blood Count 17.9 TH/MM3 (4.0-11.0) Neutrophils (%) (Auto) 81.6 % (16.0-70.0) Neutrophils # (Auto) 14.6 TH/MM3 (1.8-7.7) Monocytes # (Auto) 1.1 TH/MM3 (0-0.9) Sodium Level 132 MEQ/L (136-145) Chloride Level 95 MEQ/L (98-107) Last [address] 04/10/17 0000 Signed Impressions: Service Date/Time: Monday, April 10, 2017 17:17 - CONCLUSION: 1. Decrease in size of left tonsillar mass and edema however mass effect remains on the airway. sOmar Prince MD Case was discussed with Dr. Arthur who states that if problems continue, patient should be evaluated by GI and possibly may need a PEG tube. At this point, patient is admitted to hospitalist service for further evaluation and treatment. Data Data Last Documented VS Vital Signs Date Time Temp Pulse Resp B/P (MAP) Pulse Ox O2 Delivery O2 Flow Rate FiO2 04/10/17 17:51 17 04/10/17 15:06 98.1 99 122/62 (82) 98 Room Air Orders Orders Basic Metabolic Panel (Bmp) (04/10/17:17) Complete Blood Count With Diff (04/10/17:17) Group A Rapid Strep Screen (04/10/17 15:17) Iv Access Insert/Monitor (04/10/17 15:17) Sodium Chloride 0.9% Flush (Ns Flush) (04/10/17 15:30) Ampicillin-Sulbactam Inj (Unasyn Inj) (04/10/17 15:30) Ct Soft Tiss Neck W Iv Cont (04/10/17 ) Dexamethasone Inj (Decadron Inj) (04/10/17 16:15) Ketorolac Inj (Toradol Inj) (04/10/17 16:15) Strep Culture (Group A) (04/10/17 15:30) Sodium Chlor 0.9% 1000 Ml Inj (Ns 1000 M (04/10/17 17:15) Iohexol 350 Inj (Omnipaque 350 Inj) (04/10/17 17:38) Admit Order (Ed Use Only) (04/10/17 ) Maintenance Mechanic Helper / Telemetry LORNE.Q8H (04/10/17 18:44) Vital Signs (Adult) Q4H (04/10/17 18:44) Activity Oob With Assistance (04/10/17 18:44) Notify Dr: Other (04/10/17 18:44) Labs Laboratory Tests Test 04/10/17 15:30 White Blood Count 17.9 TH/MM3 Red Blood Count 5.23 MIL/MM3 Hemoglobin 14.4 GM/DL Hematocrit 42.9 % Mean Corpuscular Volume 82.1 FL Mean Corpuscular Hemoglobin 27.5 PG Mean Corpuscular Hemoglobin Concent 33.5 % Red Cell Distribution Width 14.6 % Platelet Count 292 TH/MM3 Mean Platelet Volume 8.8 FL Neutrophils (%) (Auto) 81.6 % Lymphocytes (%) (Auto) 11.2 % Monocytes (%) (Auto) 6.3 % Eosinophils (%) (Auto) 0.6 % Basophils (%) (Auto) 0.3 % Neutrophils # (Auto) 14.6 TH/MM3 Lymphocytes # (Auto) 2.0 TH/MM3 Monocytes # (Auto) 1.1 TH/MM3 Eosinophils # (Auto) 0.1 TH/MM3 Basophils # (Auto) 0.1 TH/MM3 CBC Comment DIFF FINAL Differential Comment Blood Urea Nitrogen 11 MG/DL Creatinine 0.73 MG/DL Random Glucose 75 MG/DL Calcium Level 9.3 MG/DL Sodium Level 132 MEQ/L Potassium Level 3.7 MEQ/L Chloride Level 95 MEQ/L Carbon Dioxide Level 27.9 MEQ/L Anion Gap 9 MEQ/L Estimat Glomerular Filtration Rate 113 ML/MIN [facility] Medical Record Reviewed: Yes Supervised Visit with HEMANT: Yes Diagnosis Primary Impression: Sepsis Qualified Codes: A41.9 - Sepsis, unspecified organism Additional Impression: Oropharyngeal mass Admitting Information Admitting Physician Requests: Admit Scripts No Active Prescriptions or Reported Meds Condition: Stable Ty Malcolm MD Apr 10, 2017 19:36
--- NOTE | 2017-04-10 20:11 | HHI.HP ---
[facility] No Primary Care Physician Admission Diagnosis sepsis, unspecified organism Diagnoses: Travel History International Travel<30 Days: No Contact w/Intl Traveler <30 Da: No Traveled to Known Affected Are: No History of Present Illness 52-year-old male previously evaluated for large left tonsillar fossa mass presents to the emergency department with a 2 day history of worsening left sided neck and throat pain with accompanying dysphasia. The patient was previously evaluated in January 2017 for a lymph node biopsy was negative for neoplasm. The patient was seen by oncology and was scheduled to follow-up as an outpatient however he states he became homeless and was unable to keep these appointments. CT of the neck today revealed a decrease in size of the left tonsillar mass however edema and mass effect remain on the airway. The patient denies difficulty breathing. He states he is only able to swallow small amounts of food. He meets sepsis criteria with a leukocytosis of 17.9 and a heart rate in the 100s. Review of Systems Denies fever or chills Denies blurry vision, otorrhea, rhinorrhea Negative for cough. Positive sore throat No chest pain, palpitations, shortness of breath No abdominal pain Denies constipation/diarrhea/nausea/vomiting Denies muscle pain/weakness No rashes Past Family Social History Past Medical History None per patient Past Surgical History Bilateral hand I&D for MRSA in February 2017 Pilonidal cyst removal Reported Medications None Allergies: Coded Allergies: No Known Allergies (Verified Allergy, Unknown, 04/10/17) Family History Mother with dementia. Father with prostate cancer. Social History Smokes one to one and a half packs per day 15 years. Last alcohol ingestion was approximately 2 years ago. History of opiate abuse, quit 1 year ago. Denies marijuana or illicit drugs at this time. Physical Exam Vital Signs Vital Signs Date Time Temp Pulse Resp B/P (MAP) Pulse Ox O2 Delivery O2 Flow Rate FiO2 04/10/17 19:20 98.5 92 16 124/72 (89) 95 Room Air 04/10/17 17:51 17 04/10/17 15:06 98.1 99 21 122/62 (82) 98 Room Air 04/10/17 13:36 97.8 109 16 138/78 (98) 99 Physical Exam GENERAL: male lying in bed SKIN: No rashes, ecchymoses or lesions. Cool and dry. HEAD: Atraumatic. Normocephalic. No temporal or scalp tenderness. EYES: Pupils equal round and reactive. Extraocular motions intact. No scleral icterus. No injection or drainage. ENT: Nose without bleeding, purulent drainage or septal hematoma. There is a large mass in the oropharynx with mild edema. No exudates. Airway patent. NECK: Trachea midline. Tender to palpation along left neck. CARDIOVASCULAR: Regular rate and rhythm without murmurs, gallops, or rubs. RESPIRATORY: Clear to auscultation. Breath sounds equal bilaterally. No wheezes , rales, or rhonchi. GASTROINTESTINAL: Abdomen soft, non-tender, nondistended. No hepato-splenomegaly , or palpable masses. No guarding. MUSCULOSKELETAL: Extremities without clubbing, cyanosis, or edema. No joint tenderness, effusion, or edema noted. NEUROLOGICAL: Awake and alert. Cranial nerves II through XII intact. Motor and sensory grossly within normal limits. Normal speech. Laboratory Laboratory Tests Test 04/10/17 15:30 White Blood Count 17.9 Red Blood Count 5.23 Hemoglobin 14.4 Hematocrit 42.9 Mean Corpuscular Volume 82.1 Mean Corpuscular Hemoglobin 27.5 Mean Corpuscular Hemoglobin Concent 33.5 Red Cell Distribution Width 14.6 Platelet Count 292 Mean Platelet Volume 8.8 Neutrophils (%) (Auto) 81.6 Lymphocytes (%) (Auto) 11.2 Monocytes (%) (Auto) 6.3 Eosinophils (%) (Auto) 0.6 Basophils (%) (Auto) 0.3 Neutrophils # (Auto) 14.6 Lymphocytes # (Auto) 2.0 Monocytes # (Auto) 1.1 Eosinophils # (Auto) 0.1 Basophils # (Auto) 0.1 CBC Comment DIFF FINAL Differential Comment Blood Urea Nitrogen 11 Creatinine 0.73 Random Glucose 75 Calcium Level 9.3 Sodium Level 132 Potassium Level 3.7 Chloride Level 95 Carbon Dioxide Level 27.9 Anion Gap 9 Estimat Glomerular Filtration Rate 113 Date/Time Source Procedure Growth Status 04/10/17 15:30 Throat Group A Streptococcus Screen Pending Received Result Diagram: 04/10/17 1530 04/10/17 153 Caprini VTE Risk Assessment Caprini VTE Risk Assessment: No/Low Risk (score <= 1) Caprini Risk Assessment Model Point Value = 1 Point Value = 2 Point Value = 3 Point Value = 5 Age 41-60 Minor surgery BMI > 25 kg/m2 Swollen legs Varicose veins or History of unexplained or recurrent spontaneous Oral contraceptives or hormone replacement Sepsis (< 1 month) Serious lung disease, including pneumonia (< 1 month) Abnormal pulmonary function Acute myocardial infarction Congestive heart failure (< 1 month) History of inflammatory bowel disease Medical patient at bed rest Age 61-74 Arthroscopic surgery Major open surgery (> 45 min) Laparoscopic surgery (> 45 min) Malignancy Confined to bed (> 72 hours) Immobilizing plaster cast Central venous access Age >= 75 History of VTE Family history of VTE Factor V Leiden Prothrombin [id number] Lupus anticoagulant Anticardiolipin antibodies Elevated serum homocysteine Heparin-induced thrombocytopenia Other congenital or acquired thrombophilia Stroke (< 1 month) Elective arthroplasty Hip, pelvis, or leg fracture Acute spinal cord injury (< 1 month) Prophylaxis Regimen Total Risk Factor Score Risk Level Prophylaxis Regimen 0-1 Low Early ambulation 2 Moderate Order ONE of the following: *Sequential Compression Device (SCD) *Heparin 5000 units SQ BID 3-4 Higher Order ONE of the following medications: *Heparin 5000 units SQ TID *Enoxaparin/Lovenox 40 mg SQ daily (WT < 150 kg, CrCl > 30 mL/min) *Enoxaparin/Lovenox 30 mg SQ daily (WT < 150 kg, CrCl > 10-29 mL/min) *Enoxaparin/Lovenox 30 mg SQ BID (WT < 150 kg, CrCl > 30 mL/min) AND/OR *Sequential Compression Device (SCD) 5 or more Highest Order ONE of the following medications: *Heparin 5000 units SQ TID (Preferred with Epidurals) *Enoxaparin/Lovenox 40 mg SQ daily (WT < 150 kg, CrCl > 30 mL/min) *Enoxaparin/Lovenox 30 mg SQ daily (WT < 150 kg, CrCl > 10-29 mL/min) *Enoxaparin/Lovenox 30 mg SQ BID (WT < 150 kg, CrCl > 30 mL/min) AND *Sequential Compression Device (SCD) Assessment and Plan Assessment and Plan 52-year-old homeless male with known left tonsillar mass presents with a 2 day history of increasing pain and dysphagia. 1. Left tonsillar mass CT shows a decrease in the size of the mass with edema and mass effect present Concern for infection given leukocytosis and edema Unasyn 3 g every 6 hours Decadron ENT consulted, appreciate assistance Oncology consulted, patient previously evaluated by oncology and was since lost to follow-up Monitor for signs of airway compromise 2. Sepsis Patient meets sepsis criteria with tachycardia and leukocytosis Lactic acid pending IV fluids Monitor for signs of septic shock FEN Pured diet Electrolytes: Replete when necessary Fluids: NS at 100 cc/hour Heparin Physician Certification 2 Midnight Certification Type: Admission for Inpatient Services Order for Inpatient Services The services are ordered in accordance with Medicare regulations or non- Medicare payer requirements, as applicable. In the case of services not specified as inpatient-only, they are appropriately provided as inpatient services in accordance with the 2-midnight benchmark. Estimated LOS (days): 2 2 days is the estimated time the patient will need to remain in the hospital, assuming treatment plan goals are met and no additional complications. Post-Hospital Plan: Not yet determined Arlet Vega MD Apr 10, 2017 20:11
[2017-04-10] MEDS: SODIUM CHLORIDE 0.9% FLUSH 10 ML FLUSH IV FLUSH SCH ×2 (21:00)
[2017-04-10 21:15] VITALS: BP 116/75; PULSE 90; RESP 18; TEMP 97.9; O2SAT 98
[2017-04-10] MEDS: AMPICILLIN-SULBACTAM INJ 3 GM in SODIUM CHLORIDE 0.9% INJ 100 ML IV SCH ×4 (21:18)
[2017-04-10] MEDS: DOCUSATE SODIUM 50 MG/SENNA 8.6 MG TAB PO SCH ×2 (21:18)
[2017-04-10] MEDS: HEPARIN SODIUM - SQ 10,000 UNITS/ML VIAL SQ SCH ×2 (21:18)
[2017-04-10] MEDS: SODIUM CHLOR 0.9% 1000 ML INJ 1,000 ML IV SCH ×2 (21:19)
[2017-04-11] MEDS: HEPARIN SODIUM - SQ 10,000 UNITS/ML VIAL SQ SCH ×2 (05:04)
[2017-04-11] MEDS: AMPICILLIN-SULBACTAM INJ 3 GM in SODIUM CHLORIDE 0.9% INJ 100 ML IV SCH ×8 (05:04→09:50)
[2017-04-11] MEDS: SODIUM CHLOR 0.9% 1000 ML INJ 1,000 ML IV SCH ×2 (05:04)
[2017-04-11 08:00] VITALS: BP 119/71; PULSE 81; RESP 16; TEMP 96.9; O2SAT 96
[2017-04-11] MEDS ORDERED: DEXAMETHASONE SOD PHOS 4 MG/ML VIAL IM SCH ×2 (09:00)
[2017-04-11 09:10] LABS: AUTOMATED NEUTROPHIL # 14.9 TH/MM3 (1.8-7.7); BASOPHIL % 0.1 % (0.0-2.0); HEMATOCRIT 40.1 % (39.0-51.0); HEMOGLOBIN 13.4 GM/DL (13.0-17.0); LYMPH % 9.6 % (9.0-44.0); LYMPHOCYTE # 1.7 TH/MM3 (1.0-4.8); MEAN CORPUSCULAR HEMOGLOBIN 27.4 PG (27.0-34.0); MEAN CORPUSCULAR HGB CONC 33.4 % (32.0-36.0); MEAN PLATELET VOLUME 8.8 FL (7.0-11.0); MONO % 4.3 % (0.0-8.0); MONOCYTE # 0.7 TH/MM3 (0-0.9); PLATELET COUNT 302 TH/MM3 (150-450); RED BLOOD COUNT 4.89 MIL/MM3 (4.50-5.90); RED CELL DISTRIBUTION WIDTH 14.4 % (11.6-17.2); WHITE BLOOD COUNT 17.3 TH/MM3 (4.0-11.0)
[2017-04-11 09:36] LABS: BICARBONATE 24.4 MEQ/L (21.0-32.0); CALCIUM 9.2 MG/DL (8.5-10.1); CREATININE 0.59 MG/DL (0.60-1.30)
[2017-04-11] MEDS: DOCUSATE SODIUM 50 MG/SENNA 8.6 MG TAB PO SCH ×2 (09:49)
[2017-04-11] MEDS: SODIUM CHLORIDE 0.9% FLUSH 10 ML FLUSH IV FLUSH SCH ×2 (09:50)
[2017-04-11 12:00] VITALS: BP 121/72; PULSE 85; RESP 17; TEMP 97.2; O2SAT 97
--- NOTE | 2017-04-11 12:41 | HHI.PR ---
Subjective Remarks 52-year-old male previously evaluated for large left tonsillar fossa mass presents to the emergency department with a 2 day history of worsening left sided neck and throat pain with accompanying dysphasia. The patient was previously evaluated in January 2017 for a lymph node biopsy was negative for neoplasm. The patient was seen by oncology and was scheduled to follow-up as an outpatient however he states he became homeless and was unable to keep these appointments. CT of the neck today revealed a decrease in size of the left tonsillar mass however edema and mass effect remain on the airway. The patient denies difficulty breathing. He states he is only able to swallow small amounts of food. He meets sepsis criteria with a leukocytosis of 17.9 and a heart rate in the 100s. 11 patient complains of pain in his neck and throat does not like his diet will change to a soft diet instead of a pured diet Objective Vitals Vital Signs Date Time Temp Pulse Resp B/P (MAP) Pulse Ox O2 Delivery O2 Flow Rate FiO2 04/11/17 12:00 97.2 85 17 121/72 (88) 97 04/11/17 08:00 96.9 81 16 119/71 (87) 96 04/10/17 21:15 97.9 90 18 116/75 (89) 98 04/10/17 20:40 04/10/17 19:20 98.5 92 16 124/72 (89) 95 Room Air 04/10/17 17:51 17 04/10/17 15:06 98.1 99 21 122/62 (82) 98 Room Air 04/10/17 13:36 97.8 109 16 138/78 (98) 99 I/O 04/10/17 04/10/17 04/10/17 04/11/17 04/11/17 04/11/17 07:00 15:00 23:00 07:00 15:00 23:00 Intake Total 1200 ml 240 ml Output Total 400 ml Balance 1200 ml -160 ml Intake Oral 240 ml IV Total 1200 ml Output Urine Total 400 ml # Voids 2 Result Diagram: 04/11/1725 04/11/17724 Other Results Laboratory Tests Test 04/10/17 15:30 04/10/17 20:20 04/11/17 07:25 White Blood Count 17.9 TH/MM3 17.3 TH/MM3 Red Blood Count 5.23 MIL/MM3 4.89 MIL/MM3 Hemoglobin 14.4 GM/DL 13.4 GM/DL Hematocrit 42.9 % 40.1 % Mean Corpuscular Volume 82.1 FL 82.0 FL Mean Corpuscular Hemoglobin 27.5 PG 27.4 PG Mean Corpuscular Hemoglobin Concent 33.5 % 33.4 % Red Cell Distribution Width 14.6 % 14.4 % Platelet Count 292 TH/MM3 302 TH/MM3 Mean Platelet Volume 8.8 FL 8.8 FL Neutrophils (%) (Auto) 81.6 % 86.0 % Lymphocytes (%) (Auto) 11.2 % 9.6 % Monocytes (%) (Auto) 6.3 % 4.3 % Eosinophils (%) (Auto) 0.6 % 0.0 % Basophils (%) (Auto) 0.3 % 0.1 % Neutrophils # (Auto) 14.6 TH/MM3 14.9 TH/MM3 Lymphocytes # (Auto) 2.0 TH/MM3 1.7 TH/MM3 Monocytes # (Auto) 1.1 TH/MM3 0.7 TH/MM3 Eosinophils # (Auto) 0.1 TH/MM3 0.0 TH/MM3 Basophils # (Auto) 0.1 TH/MM3 0.0 TH/MM3 CBC Comment DIFF FINAL DIFF FINAL Differential Comment Blood Urea Nitrogen 11 MG/DL 12 MG/DL Creatinine 0.73 MG/DL 0.59 MG/DL Random Glucose 75 MG/DL 110 MG/DL Calcium Level 9.3 MG/DL 9.2 MG/DL Sodium Level 132 MEQ/L 137 MEQ/L Potassium Level 3.7 MEQ/L 3.9 MEQ/L Chloride Level 95 MEQ/L 103 MEQ/L Carbon Dioxide Level 27.9 MEQ/L 24.4 MEQ/L Anion Gap 9 MEQ/L 10 MEQ/L Estimat Glomerular Filtration Rate 113 ML/MIN 145 ML/MIN Lactic Acid Level 0.8 mmol/L Imaging Last Impressions Neck CT 04/10/17 0000 Signed Impressions: Service Date/Time: Monday, April 10, 2017 17:17 - CONCLUSION: 1. Decrease in size of left tonsillar mass and edema however mass effect remains on the airway. Osmar Prince MD Objective Remarks GENERAL: Awake and alert talkative and not very cooperative SKIN: Warm and dry. No obvious rashes ecchymosis or lesions --multiple probable track garcia HEAD: Atraumatic. Normocephalic. EYES: Pupils equal and round. No scleral icterus. No injection or drainage. ENT: No nasal bleeding or discharge. Mucous membranes pink and moist. Large mass in the oropharynx with edema NECK: Trachea midline. No JVD. Tender to palpation along left side of neck CARDIOVASCULAR: Regular rate and rhythm. S1 and S2 no S3 or S4 RESPIRATORY: No accessory muscle use. Clear to auscultation. Breath sounds equal bilaterally. GASTROINTESTINAL: Abdomen soft, non-tender, nondistended. Hepatic and splenic margins not palpable. MUSCULOSKELETAL: Extremities without clubbing, cyanosis, or edema. No obvious deformities. NEUROLOGICAL: Awake and alert. No obvious cranial nerve deficits. Motor grossly within normal limits. Five out of 5 muscle strength in the arms and legs. Normal speech. PSYCHIATRIC: INAppropriate mood and affect; insight and judgment ABnormal. Medications and IVs Current Medications Dexamethasone Sodium Phosphate (Decadron Inj) 10 mg ONCE ONCE IM ; Start at 15:30; Stop 04/10/17 at 15:31; Status Cancel Sodium Chloride (NS Flush) 2 ml UNSCH PRN IVF FLUSH AFTER USING IV ACCESS; Start 04/10/17 at 15:30; Stop 04/10/17 at 20:17; Status DC Ampicillin Sodium/ Sulbactam Sodium 3 gm/Sodium Chloride 100 ml @ 200 mls/hr ONCE ONCE IV Last administered on 04/10/17 16:08; Start 04/10/17 at 15:30; Stop 04/10/17 at 15:59; Status DC Dexamethasone Sodium Phosphate (Decadron Inj) 10 mg ONCE ONCE IV PUSH Last administered on 04/10/17 16:08; Start 04/10/17 at 16:15; Stop 04/10/17 at 16:16 ; Status DC Ketorolac Tromethamine (Toradol Inj) 30 mg ONCE ONCE IV PUSH Last administered on 04/10/17 16:37; Start 04/10/17 at 16:15; Stop 04/10/17 at 16:16 ; Status DC Sodium Chloride 1,000 ml @ 999 mls/hr BOLUS ONCE IV Last administered on 04/10 17:51; Start 04/10/17 at 17:15; Stop 04/10/17 at 18:15; Status DC Iohexol (Omnipaque 350 Inj) 62 ml STK-MED ONCE IVCONTRAST ; Start 04/10/17 at 17 :38; Stop 04/10/17 at 17:39; Status DC Sodium Chloride (NS Flush) 2 ml UNSCH PRN IV FLUSH FLUSH AFTER USING IV ACCESS ; Start 04/10/17 at 19:00 Sodium Chloride (NS Flush) 2 ml BID IV FLUSH Last administered on 04/11/17 09: 50; Start 04/10/17 at 21:00 Acetaminophen (Tylenol) 650 mg Q4H PRN PO TEMP > 100.4; Start 04/10/17 at 19:00 Ondansetron HCl (Zofran Inj) 4 mg Q6H PRN IVP NAUSEA OR VOMITING; Start at 19:00 Heparin Sodium (Porcine) (Heparin Inj) 5,000 units Q8H SQ Last administered on 04/11/17 05:04; Start 04/10/17 at 22:00 Naloxone HCl (Narcan Inj) 0.4 mg UNSCH PRN IV PUSH SEE LABEL COMMENTS; Start 04/10/17 at 19:00 Senna/Docusate Sodium (Rebekah-Colace) 1 tab BID PO Last administered on 09:49; Start 04/10/17 at 21:00 Magnesium Hydroxide (Milk Of Magnesia Liq) 30 ml Q12H PRN PO Mild constipation ; Start 04/10/17 at 19:00 Sennosides (Senokot) 17.2 mg Q12H PRN PO Moderate constipation; Start 04/10/17 at 19:00 Bisacodyl (Dulcolax Supp) 10 mg DAILY PRN RECTAL SEVERE CONSITIPATION; Start 04/10/17 at 19:00 Lactulose (Lactulose Liq) 30 ml DAILY PRN PO SEVERE CONSITIPATION; Start at 19:00 Ampicillin Sodium/ Sulbactam Sodium 3 gm/Sodium Chloride 100 ml @ 200 mls/hr Q6H IV Last administered on 04/11/17 09:50; Start 04/10/17 at 22:00 Dexamethasone Sodium Phosphate (Decadron Inj) 4 mg Q12HR IM Last administered on 04/11/17 09:49; Start 04/11/17 at 09:00 Sodium Chloride 1,000 ml @ 100 mls/hr Q10H IV Last administered on 04/11/17t 05:04; Start 04/10/17 at 21:00 A/P Assessment and Plan 52-year-old homeless male with known left tonsillar mass presents with a 2 day history of increasing pain and dysphagia. 1. Left tonsillar mass CT shows a decrease in the size of the mass with edema and mass effect present Concern for infection given leukocytosis and edema Unasyn 3 g every 6 hours Decadron ENT consulted, appreciate assistance Oncology consulted, patient previously evaluated by oncology and was since lost to follow-up Monitor for signs of airway compromise 2. Sepsis Patient meets sepsis criteria with tachycardia and leukocytosis Lactic acid pending IV fluids Monitor for signs of septic shock FEN Pured diet Electrolytes: Replete when necessary Fluids: NS at 100 cc/hour Heparin Possible history of IV drug abuse --multiple track garcia on his arms Discharge Planning cASE MANAGEMENT FOR HELP WITH DISCHARGE Jose Piedra DO Apr 11, 2017 12:41
[2017-04-11] MEDS ORDERED: SODIUM CHLORIDE 0.9% FLUSH 10 ML FLUSH IV FLUSH PRN ×2 (12:45)
[2017-04-11] MEDS ORDERED: MAGNESIUM HYDROXIDE SUSP 30 ML CUP PO PRN ×2 (12:45)
[2017-04-11] MEDS ORDERED: ACETAMINOPHEN 325 MG TAB PO PRN ×4 (12:45)
[2017-04-11] MEDS ORDERED: ONDANSETRON HCL 4 MG/2 ML VIAL IVP PRN ×2 (12:45)
[2017-04-11] MEDS ORDERED: BISACODYL 10 MG SUPP RECTAL PRN ×2 (12:45)
[2017-04-11] MEDS ORDERED: NALOXONE HCL 0.4 MG/ML AMP IV PUSH PRN ×2 (12:45)
[2017-04-11] MEDS ORDERED: SENNOSIDES 8.6 MG TAB PO PRN ×2 (12:45)
[2017-04-11] MEDS ORDERED: oxyCODONE/ACETAMINOPHEN 5 MG/325 MG TAB PO PRN ×2 (12:45)
[2017-04-11] MEDS ORDERED: oxyCODONE/ACETAMINOPHEN 10 MG/325 MG TAB PO PRN ×2 (12:45)
[2017-04-11] MEDS ORDERED: PROCHLORPERAZINE 25 MG SUPP RECTAL PRN ×2 (12:45)
[2017-04-11] MEDS ORDERED: LACTULOSE SYRUP 20 GM/30 ML CUP PO PRN ×2 (12:45)
[2017-04-11] MEDS ORDERED: MORPHINE SULFATE 4 MG/ML INJ IV PUSH PRN ×4 (12:45)
[2017-04-11] MEDS ORDERED: NICOTINE 14 MG/24 HR PATCH T-DERMAL SCH ×2 (13:30)
--- NOTE | 2017-04-11 15:16 | PD.AMA ---
Against Medical Advice Note Discharge Disposition: Against Medical Advice Recommended Treatment Course NEEDS TO SEE ENT--REGARDING TONSILAR MASS- LEFT AMA TO GO SHOOT UP DRUGS AMA Statement Patient Seferino Rojas has decided to leave the hospital against medical advice. This patient has the capacity to refuse care and understands the risks of leaving, including permanent disability and/or , and has had an opportunity to ask questions about his condition. The patient has been informed that he may return for care at any time, and follow up has been arranged/ advised. Jose Piedra DO Apr 11, 2017 15:16
[2017-04-11] MEDS ORDERED: DOCUSATE SODIUM 50 MG/SENNA 8.6 MG TAB PO SCH ×2 (21:00)
[2017-04-11] MEDS ORDERED: SODIUM CHLORIDE 0.9% FLUSH 10 ML FLUSH IV FLUSH SCH ×2 (21:00)
[2017-04-12] MEDS ORDERED: REMOVE OLD PATCH T-DERMAL SCH ×2 (09:00)
--- NOTE | 2017-04-13 08:49 | MH ---
cc: FRANKLYN BENOIT DATE OF ADMISSION 04/10/2017 HISTORY OF PRESENT ILLNESS This is a 52-year-old gentleman with a pharyngeal lesion for direct laryngoscopy and biopsy. PAST MEDICAL HISTORY Unremarkable SOCIAL HISTORY The patient is homeless and is still in the hospital to facilitate biopsy. PHYSICAL EXAM HEAD, EYES, EARS, NOSE, AND THROAT: Reveals a left sided pharyngeal mass with left-sided lymphadenopathy in the neck. LUNGS: Clear. HEART: Regular rate and rhythm. ABDOMEN: Soft and nontender. EXTREMITIES: Without cyanosis, clubbing or edema. NEUROLOGIC: Alert, oriented, nonfocal neurologic exam. IMPRESSION/PLAN This is a patient with left-sided pharyngeal lesions for direct laryngoscopy and biopsy. Instructed as to the method of surgery and possible complications to include anesthetic complications, cardiac difficulty, pulmonary difficulty, stroke, coma or even . Surgical complications of bleeding, infection, risk of injury to carotid artery or jugular vein. The patient appeared to agree, accept and understand the above-mentioned risks and benefits. In addition, no guarantees or warranties regarding outcome were given. We will therefore proceed with surgery. MD ELOY Haywood/GAUTAM /8:42 AM /8:47 AM
== END 2017-04-11 15:00 | disposition left against medical advice (07) | DRG 872 ==
LOC: NEPC 13:34 → NEDA 18:46 → N07B 20:48
PROVIDERS: ADMIT Hospitalist; ATTEND Hospitalist
DX: A41.9 Sepsis, unspecified organism (principal); R13.10 Dysphagia, unspecified; J39.2 Other diseases of pharynx; J35.9 Chronic disease of tonsils and adenoids, unspecified; F17.210 Nicotine dependence, cigarettes, uncomplicated
CPT/HCPCS: 70491; 80048; 82948; 83605; 85025; 87081; 87880; 96361; 96365; 96375; J0295; J1100; J1644; J1885; J7030; Q9967